=== PATIENT | male | born 1960 | race Caucasian/White ===

== ENCOUNTER 2018-03-24 06:52 | Emergency (ER) | payer OTHER, SELFPAY ==
[2018-03-24 06:54] VITALS: BP 166/78; PULSE 84; RESP 22; TEMP 36.6; O2SAT 97; BMI 42.3
--- NOTE | 2018-03-24 06:58 | NURSING ---
NO OLD EKGS
--- NOTE | 2018-03-24 07:11 | RAD_ITS ---
STUDY: X-RAY CHEST REASON FOR EXAM: Male, 57 years old. Lightheaded, dizzy, short of breath since yesterday. TECHNIQUE: Single portable frontal chest. COMPARISON: None. FINDINGS: The lungs are clear and expanded. There is no demonstrated pleural abnormality. Normal size heart. Normal mediastinum and renee. Normal visualized pulmonary arteries. Normal visualized aortic arch and descending thoracic aorta. There are diffuse degenerative changes of the visualized thoracic spine. Normal visualized ribs, clavicles, and shoulders. There is no demonstrated abnormality of the visualized soft tissue structures of the upper abdomen. RAD/Chest 1 View (Portable) IMPRESSION: No evident acute cardiopulmonary disease. Electronically Signed: Micheal Nguyen MD at 8:04 EDT , Service support ,
--- NOTE | 2018-03-24 07:11 | EKG12_ITS ---
Test Reason : NEURO Blood Pressure : / mmHG Vent. Rate : 082 BPM Atrial Rate : 082 BPM P-R Int : 184 ms QRS Dur : 094 ms QT Int : 384 ms P-R-T Axes : 034 002 034 degrees QTc Int : 448 ms Sinus rhythm with frequent Premature ventricular complexes Otherwise normal ECG Confirmed by TIFFANI CHAVEZ, DREW ([id number]), index editor TESSIE COOPER ([id number]) on 03/27/2018 12:53:52 PM Referred By: Confirmed By:DREW NIXON MD
--- NOTE | 2018-03-24 07:18 | ED.VISSUMM ---
- ER Visit Summary Date of Service: 03/24/18 Chief Complaint: Lightheadedness History of Present Illness: The patient is a 57 M presenting with lightheadedness which started yesterday. Patient states that he feels lightheaded like he is going to pass out. He has not passed out. He denies vertigo symptoms. Denies numbness or weakness. He states he has a pressure in his head. Denies pain. Denies chest pain or shortness of breath. Denies abdominal pain, nausea, vomiting. Denies fever or recent illness. He does have an abscessed tooth which he was put on amoxicillin for yesterday by his dentist. He states his symptoms started before the antibiotics were started. He has a history of episodic ataxia. He states this feels different from previous. No recent trauma. Physical Examination: Vitals are stable. Patient is afebrile. Alert no acute distress. HEENT exam is unremarkable. Right upper gum: no fluctuance or drainage. Neck is supple. Lungs are clear and equal bilaterally. Heart is regular rate and rhythm. Abdomen is soft nontender nondistended. Extremities are unremarkable. Skin is warm and dry. No focal neurologic deficit. NIH 0 Remainder of exam is unremarkable. Emergency Department Course and Treatment: EKG is sinus rate of 82 with no acute ischemic changes. He was given IV fluids. Orthostatics are negative. CBC, chemistries unremarkable other than glucose 177. Troponin is negative. D-dimer is negative. Delta troponin is negative. Chest x-ray shows no acute process. CT head shows no acute process. Patient has some improvement. He is able to ambulate with a steady gait. He is comfortable with discharge home. He will follow-up with his primary care physician. Advised return to the ED for any worsening complaints. Disposition: Discharged home Impression: Lightheadedness This note was generated with [employer] dictation software. It may contain incorrect words, spelling, and punctuation that were not noted in review of the chart prior to signing ED Disposition - Plan for ED Patient: Disposition: Home or Assisted Living Chief Complaint: Neuro S/Sx Instructions: [place] [facility] [place]errals: Willam Rosales [Primary Care Provider] -
--- NOTE | 2018-03-24 07:19 | CT_ITS ---
STUDY: CT BRAIN WITHOUT CONTRAST REASON FOR EXAM: Male, 57 years old. Dizzy and lightheaded since yesterday. RADIATION DOSAGE (If Supplied By Facility): CTDIvol = ( 44.99 ) mGy, DLP = ( 863.60 ) mGycm TECHNIQUE: Transaxial CT imaging of the brain was performed without administration of intravenous contrast material. Individualized dose optimization techniques were used for this CT. COMPARISON: None. FINDINGS: Normal soft tissue structures. Normal calvarium. Normal size ventricles and extra-axial spaces for the patient's age. Normal white matter tracts of the cerebral hemispheres. Normal basal ganglia and thalami. Normal brainstem. Normal cerebellum. There is no intracranial hemorrhage. There are no findings of an acute ischemic infarction. Soft tissue density seen involving both maxillary sinuses. There is no paranasal sinus air-fluid level. CT/Brain/Head without Contrast IMPRESSION: No evident acute intracranial pathology. Nonspecific paranasal sinus disease without air-fluid level. Electronically Signed: Micheal Nguyen MD at 8:04 EDT , Service support ,
[2018-03-24 07:28] LABS: Absolute Lymphocyte Count 1.61 X10^3/ul (0.83-4.51); Absolute Neutrophil Count 3.4 X10^3/uL (2.0-7.7); Basophil# 0.02 X10^3/uL; Basophil% 0.4 % (0-1); Eosinophil# 0.12 X10^3/uL; Eosinophils% 2.1 % (0-5); Hematocrit 46.1 % (40-54); Hemoglobin 15.5 g/dl (13.0-16.5); Lymphocyte # 1.61 X10^3/ul (4.0); Lymphocyte % 28.3 % (19-41); Mean Corp Hgb Conc 33.6 g/gl (32-36); Mean Corpuscular Hgb 30.3 pg (27.0-32.0); Mean Platelet Vol. 9.7 fl (6.2-12.0); Monocyte# 0.49 X10^3/uL; Monocyte% 8.6 % (0-10); Neutrophil # 3.44 X10^3/uL (2.7-7.7); Neutrophil % 60.4 % (47-70); POSITIVE COUNT NO; POSITIVE DIFFERENTIAL NO; POSITIVE MORPHOLOGY NO; Platelet Count 154 K/mm3 (150-450); RBC Distribution Width CV 13.5 % (11.6-14.6); RBC Distribution Width SD 44.3 fl (35.1-43.9); Red Blood Count 5.12 M/mm3 (4.6-6.2); White Blood Count 5.7 K/mm3 (4.4-11.0)
[2018-03-24] MEDS: 0.9% Normal Saline 1,000 ML 1000 ML IV (07:32)
[2018-03-24 07:35] VITALS: BP 140/81; BP 144/64; BP 151/91; PULSE 81; PULSE 86; PULSE 87
[2018-03-24 07:40] LABS: D-Dimer Quantitative (DVT/PE) < 0.27 FEU/ug/m (0.27-0.49)
[2018-03-24 07:45] LABS: Anion Gap 8 (5-15); BUN 19 mg/dL (7-18); Calcium,Total 8.5 mg/dL (8.5-10.1); Chloride 108 mmol/L (98-107); Creatinine, Serum 1.12 mg/dL (0.70-1.30); EST Glomerular Filtration Rate 72 mL/min (>60); Est Glom Filt Rate - Afr Amer 87 mL/min (>60); Estimated Creatinine Clearance 79.37 ml/min; Glucose 177 mg/dL (74-106); Potassium 3.9 mmol/L (3.5-5.1); Sodium Level 143 mmol/L (136-145)
[2018-03-24 09:13] VITALS: BP 147/86; PULSE 78; RESP 20; O2SAT 98
[2018-03-24 10:54] VITALS: BP 140/111; PULSE 73; RESP 18
--- NOTE | 2018-03-24 11:12 | ED.DEP ---
ED Disposition - Plan for ED Patient: Chief Complaint: Neuro S/Sx Instructions: ED Dizziness [facility] Referrals: Willam Rosales [Primary Care Provider] -
[2018-03-24 11:24] VITALS: BP 153/61; PULSE 74; RESP 15
== END 2018-03-24 11:26 | disposition home or self-care (01) ==
PROVIDERS: Emergency Provider Emergency Medicine; Family Provider Family Medicine; PCP Family Medicine
DX: R42 Dizziness and giddiness (principal); R51 Headache; E11.9 Type 2 diabetes mellitus without complications; I10 Essential (primary) hypertension; E78.00 Pure hypercholesterolemia, unspecified
CPT/HCPCS: 70450; 71045; 80048; 84484; 85025; 85379; 93005; 96360; 99285; J7030; A4216

== ENCOUNTER 2018-11-09 05:36 | Inpatient (IN) | payer OTHER, SELFPAY ==
[2018-10-30 14:26] VITALS: PULSE 94; RESP 18; TEMP 36.9; O2SAT 97; BMI 41.5
--- NOTE | 2018-10-30 14:45 | RAD_ITS ---
STUDY: X-RAY CHEST REASON FOR EXAM: Male, 57 years old. Preoperative evaluation. TECHNIQUE: PA and lateral views of the chest. COMPARISON: Comparison is made with prior study dated March 24, 2018. FINDINGS: The lungs are clear and expanded. There is no demonstrated pleural abnormality. Normal size heart. Normal mediastinum and renee. Normal visualized pulmonary arteries. Normal visualized aortic arch and descending thoracic aorta. There are diffuse degenerative changes of the visualized thoracic spine. Normal visualized ribs, clavicles, and shoulders. There is no demonstrated abnormality of the visualized soft tissue structures of the upper abdomen. RAD/Chest PA and Lateral IMPRESSION: Normal x-ray examination of the chest. Electronically Signed: Leo Agustin MD at 15:49 EST Tel [phone], Service support ,
--- NOTE | 2018-10-30 14:45 | SDCEKG_ITS ---
Test Reason : Blood Pressure : / mmHG Vent. Rate : 088 BPM Atrial Rate : 088 BPM P-R Int : 190 ms QRS Dur : 100 ms QT Int : 368 ms P-R-T Axes : 032 002 031 degrees QTc Int : 445 ms Normal sinus rhythm Low voltage QRS (limb leads) Confirmed by VONNIE CHAVEZ, KP ([id number]), editorial project manager TESSIE ESQUIVEL ([id number]) on 11/03/2018 2:13:51 PM Referred By: Toni Esquivel Confirmed By:KP SHANKAR MD
[2018-10-30 15:16] LABS: Hematocrit 45.1 % (40-54); Hemoglobin 15.3 g/dl (13.0-16.5); Mean Corp Hgb Conc 33.9 g/gl (32-36); Mean Corpuscular Hgb 30.8 pg (27.0-32.0); Mean Corpuscular Volume 90.9 fL (80-94); Mean Platelet Vol. 9.4 fl (6.2-12.0); Platelet Count 154 K/mm3 (150-450); RBC Distribution Width CV 12.8 % (11.6-14.6); RBC Distribution Width SD 42.4 fl (35.1-43.9); Red Blood Count 4.96 M/mm3 (4.6-6.2); White Blood Count 7.4 K/mm3 (4.4-11.0)
[2018-10-30 15:38] LABS: Scan Indicated on CBC? Y/N NO
[2018-10-30 15:52] LABS: Anion Gap 8 (5-15); BUN 22 mg/dL (7-18); Chloride 109 mmol/L (98-107); Creatinine, Serum 1.22 mg/dL (0.70-1.30); EST Glomerular Filtration Rate 65 mL/min (>60); Est Glom Filt Rate - Afr Amer 79 mL/min (>60); Estimated Creatinine Clearance 70.64 ml/min; Glucose 86 mg/dL (74-106); Sodium Level 144 mmol/L (136-145)
[2018-10-30 17:27] LABS: Hemoglobin A1c 6.8 % (4.2-6.3)
--- NOTE | 2018-11-06 11:49 | CASEMGMT ---
Call placed to patient to discuss discharge needs after upcoming surgery. Patient plans to return home with assistance from . Has outpatient physical therapy set up in [place], and friends from [employer] will assist with transportation. Patient is picking up walker, bedside commode, shower seat Friday from a friend. Bathroom is on 2nd level of home, patient plans to utilize [facility]SC on 1st level. Bedroom is on 2nd level of home, there are 6 steps to get to 2nd level. There are 3 steps into the home from the garage. Patient reports he does not have a grabber to use after surgery to pick things up/reach for items - let patient know that [employer], [employer], drug stores, and [facility] therapy dept all likely carry them. Informed patient that RN-CM will likely follow up after surgery. Farida Fink LPN Clinical Support
[2018-11-09] VITALS (14 sets, daily range): BP systolic 108–147; BP diastolic 61–84; PULSE 73–95; RESP 14–18; TEMP 36.3–36.9; O2SAT 95–99; BMI 41.5
[2018-11-09 06:46] LABS: Bedside Glucose 98 mg/dL (70-110)
[2018-11-09] MEDS: Acetaminophen 500 MG Tablet 1000 MG PO ×3 (06:48→21:02)
[2018-11-09] MEDS: oxyCODONE HCl Cr 10 MG Tablet PO (06:48)
[2018-11-09] MEDS: Celecoxib 200 MG Capsule 400 MG PO (06:48)
--- NOTE | 2018-11-09 07:30 | HIP_PTH ---
PATIENT: NATALIA ESQUIVEL LOC: MS3 U#:[id number] AGE/SX: 58/M [place] [facility] [place]09[place]: Dr. Toni Esquivel MD : [id number] BED: 1 DIS: 11/10/2018 SPEC #: [id number] RECD: 11/09/18 11:43 STATUS: [facility]O REQ #: [id number] DON: 11/09/18 07:[address]: Toni Esquivel DEPT: SURGICAL PATHOLOGY RECD BY: Rafael Mendes ENTERED: 11/09/18 12:58 SP TYPE: TOTAL HIP OTHR DR: MD Dr. Willam Case MD Tissues: Hip, NOS Procedures: Decalcification bone/plaque Surgery Specimen Level V HEADER OPERATION: Left total hip replacement PRE-OP DIAGNOSIS: Left hip primary osteoarthritis TISSUE SUBMITTED: Femoral head and debrided tissue MICROSCOPIC DIAGNOSIS Femoral head and debrided tissue, total hip replacement/resection: Femoral head with degenerative osteoarthritic changes. A piece of cartilage and bone, consistent with loose body. Fragments of fibroadipose tissue, fibroconnective tissue, skeletal muscle tissue and synovial tissue. SAULO:heather 11/12/18 MICROSCOPIC DESCRIPTION Slides are reviewed. GROSS DESCRIPTION Received is one container designated femoral head and debrided tissue. The specimen consists of a doss femoral head with portion of femoral neck. The femoral head measures 5.5 x 5.5 x 5.5 cm and the portion of femoral neck measures up to 1.4 cm in length. The articular surface displays prominent osteophyte formation, eburnation and bone erosion. Also present in the specimen container are multiple irregular fragments of bone reamings and pink-yellow soft tissue measuring in aggregate 11 x 10 x 3 cm. Also present in the container is a detached piece of bone consistent with loose body measuring 3 x 1.5 x 2 cm. Rental Clerk sections are submitted in three cassettes as follows: 1 - soft tissue, 2 - femoral head, 3 - loose body, 2 & 3 are submitted after decalcification. / SAULO:heather 11/09/18 TC:5 [facility]: [id number], [id number]
--- NOTE | 2018-11-09 07:31 | RAD_ITS ---
STUDY: X-RAY - LEFT HIP REASON FOR EXAM: Male, 58 years old. Left hip replacement. TECHNIQUE: 2 views of the hip. COMPARISON: None. FINDINGS: The patient is status post left hip replacement. There is good alignment. Postoperative soft tissue changes. RAD/Hip Min 2 Views (Portable) IMPRESSION: Status post left hip replacement. There is good alignment. Postoperative soft tissue changes. Electronically Signed: Leo Agustin MD at 13:21 EST Tel [phone], Service support ,
--- NOTE | 2018-11-09 09:15 | PCM.OP.BLANK ---
Operative Report Date of Procedure: 11/09/18 Preoperative diagnosis: Left hip primary osteoarthritis Postoperative diagnosis: Same Operation: [Left] total hip replacement surgery Surgeon: Dr. Toni Esquivel MD Television And Radio Repairer: Marva Balderas PA-C Second digital marketing assistant Naomi Verduzco Anesthesia: Spinal Anesthesiologist Dr. Santos Special medications: IV [Ancef] 3 g, IV Tranexamic acid Indications for surgery : Patient is a [ 58]-year-old [male] with a long-standing history of [left] severe hip pain that has failed adequate nonoperative treatment. Due to persistent pain and disability, they decided to proceed with hip replacement surgery. Appropriate informed consent was obtained and signed. Appropriate medical workup was performed preoperatively and patient was deemed safe for surgery by the anesthesia department as well. clinical services assistant, physician digital marketing assistant, was utilized throughout the entire procedure. They were vital in helping with patient positioning, holding of retractors, exposing the tissues adequately for safe completion of the procedure including cutting of the bone, helping patching machine operator appropriate alignment and sizing of the components, implantation of the components, as well as wound closure, bandage application, and safe patient transfer. Without certified ophthalmic surgical assistant, physician digital marketing assistant, surgical time would have been significantly increased, and surgical outcome would have been less optimal. Operative findings: Patient had severe arthritis of the involved hip joint. They underwent a small posterior approach to the hip. We utilized a size [5 press-fit Accolade 2 stem] 127 degree neck angle, a press fit acetabular component size [58] titanium cluster, Trident X3 10? hooded polyethylene liner with a 36 mm inner diameter, a Biolox ceramic femoral head size [36] with a +0 neck length. This reproduced their anatomy nicely. Clinically good leg lengths were noted. Good hip stability through range of motion with no undue pistoning. Standard wound closure in layers, followed by chanda, followed by Mepilex dressing Details of procedure: Patient was taken to the operating room and transferred to the operating table. Given appropriate anesthetic agent by that department. Patient was then rolled into a lateral decubitus position with the involved painful hip up in the air. Appropriate timeouts had been performed. Hip had been appropriately marked with my initials. Padded anterior and posterior position was utilized. Axillary roll placed. LLOYD hose and SCDs on the nonoperative limb utilized throughout the procedure. Tranexamic acid and IV antibiotics given preoperatively. Operative lower extremity was prepped padded and draped in the usual orthopedic sterile fashion for the procedure. I injected the pain relieving solution in the standard sterile technique of the soft tissues of the hip carefully. Incision was made curving over the tip of the greater trochanter posteriorly. Full thickness skin flaps are raised down on the fascia ifrah. Fascia ifrah was opened in length with our incision. Charnley self-retaining hip retractor was carefully placed by the surgeon. Leg was appropriately rotated and held by the digital marketing assistant. Retractor was used to lift the abductors anteriorly to visualize the piriformis tendon and external rotators. Area was infiltrated with pain relieving cocktail. Piriformis tendon and external rotators released off the greater trochanter with the Bovie. Tagging suture was placed in each of these separately. We then split the tissue superior to the piriformis tendon through capsule and onto the pelvis. Acetabular labrum was also divided. With traction and manipulation arthritic femoral head was dislocated from the acetabulum. Retractors were carefully placed around the femoral neck. Cutting guide was utilized to map out the proposed cut approximately 1 fingerbreadth above the lesser trochanter. This femoral neck cut was carried out with a saw. Arthritic femoral head removed and measured and inspected. Inferior acetabular retractor was placed by the surgeon, held by the digital marketing assistant. Bone hook utilized to pull the proximal femur anteriorly. Labrum removed from about the acetabulum a long knife. Tissue removed from the depth of the acetabulum with the Bovie. Arthritic acetabulum was noted. We began reaming with the appropriate sized reamer based on the measurement of the femoral head. Reaming was done with 45? of abduction, 20? of anteversion, reproducing there anatomy. Reaming was done incrementally up to the appropriate size creating a smooth cylindrical acetabulum and was done down to healthy bone. Trial acetabular trial component 1 millimeters smaller than the largest reamer was utilized with the outrigger device. Appropriate abduction and anteversion confirmed as well as size and position of cup. We irrigated with bulb syringe saline. Appropriate acetabular opponent was opened and hammered into position with the outrigger device, with 45? of abduction and 20 degrees of anteversion. We could see through the hole in the cup it was adequately down onto the bone in the pelvis. Good stability was noted. Trial liner with a 10? lopez was appropriately positioned. Acetabular retractors removed. A proximal femoral elevator utilized. Held by the digital marketing assistant. We used a sharp awl entering down inside the bone of the proximal femur. Utilized the kay cutting osteotome in the proximal lateral greater trochanteric region. The fragment removed. Broaching was then done from the smallest broach, upto the appropriate size. Good stability was confirmed. We then trialed the construct with a standard neck length and appropriate sized femoral head on 127? angle neck. We were happy with the construct. Good stability to flexion, rotation by the digital marketing assistant. At this point trials removed. I now placed the appropriate polyethylene acetabular liner into a clean dry previously placed shell. This was hammered into position. Suction device was used to confirm its stability. We now exposed the proximal femur with appropriate retractors in place, held by the digital marketing assistant, actual femoral stem was checked, opened, and then hammered into the proximal femur and seated down to a similar position as the trial had. We now again trialed appropriate neck length upon. It was then opened. Now impacted the appropriate sized femoral head, neck construct onto the clean dried trunion. Was noted to be stable. Hip was inspected, and joint was reduced for a final time. Good hip stability and leg lengths noted. This was then irrigated with saline and cleaned. Next the remainder of the pain relieving solution was injected carefully throughout the soft tissues of the hip joint. Closure was carried out with a combination of #1 Vicryl, running #2 strata fix in the fascia ifrah, followed by mid layer #1 Vicryl with #1 strata fix running. Next running 0 strata fix, followed by skin chanda, Xeroform, Mepilex dressing. We placed LLOYD hose and SCD on the operative leg. Patient awoken from the anesthetic and transferred back to room bed in recovery room in satisfactory condition. Patient will be admitted for pain management, PT, IV antibiotics, medication for DVT prevention. Hospitalist consulted for postoperative medical management. Hopeful discharge to home in 1-3 days This note was generated with [employer] dictation software. It may contain incorrect words, spelling, and punctuation that were not noted in checking the note before signing.
--- NOTE | 2018-11-09 09:19 | OP.PCM_ITS ---
Operative Report Date of Procedure: 11/09/18 Preoperative diagnosis: Left hip primary osteoarthritis Postoperative diagnosis: Same Operation: [Left] total hip replacement surgery Surgeon: Dr. Toni Esquivel MD Diploma Pharmacy Technician: Marva Balderas PA-C Second operations administrative assistant Naomi Verduzco Anesthesia: Spinal Anesthesiologist Dr. Santos Special medications: IV [Ancef] 3 g, IV Tranexamic acid Indications for surgery : Patient is a [ 58]-year-old [male] with a long- standing history of [left] severe hip pain that has failed adequate nonoperative treatment. Due to persistent pain and disability, they decided to proceed with hip replacement surgery. Appropriate informed consent was obtained and signed. Appropriate medical workup was performed preoperatively and patient was deemed safe for surgery by the anesthesia department as well. printer's assistant, physician operations administrative assistant, was utilized throughout the entire procedure. They were vital in helping with patient positioning, holding of retractors, exposing the tissues adequately for safe completion of the procedure including cutting of the bone, helping ladle filler appropriate alignment and sizing of the components, implantation of the components, as well as wound closure, bandage application, and safe patient transfer. Without surgical attendant, physician operations administrative assistant, surgical time would have been significantly increased, and surgical outcome would have been less optimal. Operative findings: Patient had severe arthritis of the involved hip joint. They underwent a small posterior approach to the hip. We utilized a size [5 press-fit Accolade 2 stem] 127 degree neck angle, a press fit acetabular component size [58] titanium cluster, Trident X3 10? hooded polyethylene liner w ith a 36 mm inner diameter, a Biolox ceramic femoral head size [36] with a +0 neck length. This reproduced their anatomy nicely. Clinically good leg lengths were noted. Good hip stability through range of motion with no undue pistoning. Standard wound closure in layers, followed by chanda, followed by Mepilex dressing Details of procedure: Patient was taken to the operating room and transferred to the operating table. Given appropriate anesthetic agent by that department. Patient was then rolled into a lateral decubitus position with the involved painful hip up in the air. Appropriate timeouts had been performed. Hip had been appropriately marked with my initials. Padded anterior and posterior position was utilized. Axillary roll placed. LLOYD hose and SCDs on the nonoperative limb utilized throughout the procedure. Tranexamic acid and IV antibiotics given preoperatively. Operative lower extremity was prepped padded and draped in the usual orthopedic sterile fashion for the procedure. I injected the pain relieving solution in the standard sterile technique of the soft tissues of the hip carefully. Incision was made curving over the tip of the greater trochanter posteriorly. Full thickness skin flaps are raised down on the fascia ifrah. Fascia ifrah was opened in length with our incision. Charnley self-retaining hip retractor was carefully placed by the surgeon. Leg was appropriately rotated and held by the operations administrative assistant. Retractor was used to lift the abductors anteriorly to visualize the piriformis tendon and external rotators. Area was infiltrated with pain relieving cocktail. Piriformis tendon and external rotators released off the greater trochanter with the Bovie. Tagging suture was placed in each of these separately. We then split the tissue superior to the piriformis tendon through capsule and onto the pelvis. Acetabular labrum was also divided. With traction and manipulation arthritic femoral head was dislocated from the acetabulum. Retractors were carefully placed around the femoral neck. Cutting guide was utilized to map out the proposed cut approximately 1 fingerbreadth above the lesser trochanter. This femoral neck cut was carried out with a saw. Arthritic femoral head removed and measured and inspected. Inferior acetabular retractor was placed by the surgeon, held by the operations administrative assistant. Bone hook utilized to pull the proximal femur anteriorly. Labrum removed from about the acetabulum a long knife. Tissue removed from the depth of the acetabulum with the Bovie. Arthritic acetabulum was noted. We began reaming with the appropriate sized reamer based on the measurement of the femoral head. Reaming was done with 45? of abduction, 20? of anteversion, reproducing there anatomy. Reaming was done incrementally up to t he appropriate size creating a smooth cylindrical acetabulum and was done down to healthy bone. Trial acetabular trial component 1 millimeters smaller than the largest reamer was utilized with the outrigger device. Appropriate abduction and anteversion confirmed as well as size and position of cup. We irrigated with bulb syringe saline. Appropriate acetabular opponent was opened and hammered into position with the outrigger device, with 45? of abduction and 20 degrees of anteversion. We could see through the hole in the cup it was adequately down onto the bone in the pelvis. Good stability was noted. Trial liner with a 10? lopez was appropriately positioned. Acetabular retractors removed. A proximal femoral elevator utilized. Held by the operations administrative assistant. We used a sharp awl entering down inside the bone of the proximal femur. Utilized the kay cutting osteotome in the proximal lateral greater trochanteric region. The fragment removed. Broaching was then done from the smallest broach, upto the appropriate size. Good stability was confirmed. We then trialed the construct with a standard neck length and appropriate sized femoral head on 127? angle neck. We were happy with the construct. Good stability to flexion, rotation by the operations administrative assistant. At this point trials removed. I now placed the appropriate polyethylene acetabular liner into a clean dry previously placed shell. This was hammered into position. Suction device was used to confirm its stability. We now exposed the proximal femur with appropriate retractors in place, held by the operations administrative assistant, actual femoral stem was checked, opened, and then hammered into the proximal femur and seated down to a similar position as the trial had. We now again trialed appropriate neck length upon. It was then opened. Now impacted the appropriate sized femoral head, neck construct onto the clean dried trunion. Was noted to be stable. Hip was inspected, and joint was reduced for a final time. Good hip stability and leg lengths noted. This was then irrigated with saline and cleaned. Next the remainder of the pain relieving solution was injected carefully throughout the soft tissues of the hip joint. Closure was carried out with a combination of #1 Vicryl, running #2 strata fix in the fascia ifrah, followed by mid layer #1 Vicryl with #1 strata fix running. Next running 0 strata fix, followed by skin chanda, Xeroform, Mepilex dressing. We placed LLOYD hose and SCD on the operative leg. Patient awoken from the anesthetic and transferred back to room bed in recovery room in satisfactory condition. Patient will be admitted for pain management, PT, IV antibiotics, medication for DVT prevention. Hospitalist consulted for postoperative medical management. Hopeful discharge to home in 1-3 days This note was generated with [employer] software. It may contain incorrect words, spelling, and punctuation that were not noted in checking the note before signing.
[2018-11-09 09:56] LABS: Bedside Glucose 93 mg/dL (70-110)
[2018-11-09] MEDS: Scopolamine 1mg/72hr Patch 1 PATCH TD (09:58)
[2018-11-09] MEDS: Lactated Ringers 1,000 ML 125 ML IV (11:36)
--- NOTE | 2018-11-09 13:00 | PN_ITS ---
Subjective: 58-year-old male with past medical history of hypertension, type II DM, lipidemia, morbid obesity who comes in elective left hip replacement for left hip pain. The hospitalist team is consulted to assist with postop medical management. Patient was seen in his room, denied any pain. Thinks his nerve block is now wearing off yet. Complains of inability to urinate. Bladder scan done is 520mls. Patient wants to try some time later. Reluctant to have straight cath done for urinary retention. He has been having severe left hip pain that has failed conservative management. PMHx: as listed above Allergies: None Medications: See admitting medlist PSHx: Status post tonsillectomy, appendectomy, hernia repair, forearm surgery, SHx: Denies any use of alcohol, drugs, smoking ROS: 12 point review of systems essentially negative. Objective: Vitals show temperature of 97.6, heart rate 81, blood pressure 147/71, respiratory rate 16, SPO2 is 96% on room air. Physical exam: GEN: Appears comfortable, obese, not pale, no jaundice CVS: Heart sound I and II present, no murmurs heard RESP:Clinically clear to auscultation ABD: BS present and normal, soft, nontender, no palpable organs EXT: No edema, dressing over the left hip intact, clean, dry. BELT WEAVER: CN II-XII intact, power is 5/5, normal tone Vitals/I&O's: Vital Signs Temp Pulse Resp BP Pulse Ox 97.8 F 80 18 128/67 H 99 11/09/18 11:17 11/09/18 11:29 11/09/18 11:17 11/09/18 11:17 11/09/18 11:17 Oxygen Delivery Method Room Air Weight: 131.542 kg Body Mass Index (BMI) 41.5 Finger Stick Blood Glucose 93 Intake and Output for Last 24 Hours 11/07/18 11/08/18 11/09/18 23:59 23:59 23:59 Intake Total 2800 / 2800 Balance 2800 / 2800 Laboratory Results 11/09/18 06:39: POC Glucose 98 11/09/18 09:52: POC Glucose 93 Current Medications Acetaminophen (Tylenol) 1,000 mg PO Q8 [facility] Aspirin (Aspirin) 325 mg PO BIDCM [facility] Atorvastatin Calcium (Lipitor) 40 mg PO QHS [facility] Cefazolin Sodium () 1 gm in 50 mls @ 150 mls/hr IV Q6H [facility] A Stop: 11/10/18 01:49 Lactated Ringer's () 1,000 mls @ 125 mls/hr IV .Q8H [facility] Last Admin: 11/09/18 11:36 Dose: 125 mls/hr Insulin Glargine (Lantus (Bkc)) 50 units SC QHS [facility] Ketorolac Tromethamine (Toradol) 15 mg IV Q6H PRN PRN PRN Reason: MILD-MOD PAIN (1-04/09) Lisinopril (Zestril) 40 mg PO DAILY [facility] Metformin HCl (Glucophage Xr) 500 mg PO DAILYCM [facility] Morphine Sulfate (Ms Contin) 15 mg PO BID [facility] Non-Formulary Medication (Insulin Aspart Protam & Aspart [Novolog Mix 70-30 Vial]) 15 - 20 unit SQ DAILY [facility] Ondansetron HCl (Zofran) 4 mg IV Q8H PRN PRN PRN Reason: NAUSEA Oxycodone HCl (Oxyir) 5 - 10 mg PO Q4H PRN PRN PRN Reason: MOD-SEVERE PAIN (-09/09) Senna/Docusate Sodium (Senokot-S, Tiffany-Colace) 2 tablet PO BID [facility] Sodium Chloride () 5 - 15 ml IV UD PRN PRN Reason: SALINE FLUSH Medical Necessity - Tobacco Use Smoking Status: Never smoker Assessment/Plan A/P 1. POD#0 post left hip replacement, pain is controlled 2. Hypertension, on Lisinopril 3. Hyperlipidemia, on statin 4. Type II DM, on metformin 5. Morbid obesity, BMI 41.6 Will add acucheks and ISS Continue with pain control Continue with surgical management per Orthopedic recommendations PT/OT evaluation and treatment. Code Visit Inpatient E&M: 07450 Subs Hosp L2
[2018-11-09] MEDS: Cefazolin 1 GM/50 ML BAG IV ×2 (13:13→19:41)
[2018-11-09] MEDS: Aspirin 325 MG Tablet PO (16:44)
[2018-11-09] MEDS: oxyCODONE 5 MG Tablet PO ×2 (16:46→20:58)
[2018-11-09 16:49] LABS: Bedside Glucose 136 mg/dL (70-110)
[2018-11-09] MEDS: 0.9% NaCl Peripheral Flush Adult/Peds IV (18:21)
[2018-11-09] MEDS: Ketorolac 15 MG/ML Vial IV (18:21)
[2018-11-09] MEDS: Senna/Docusate Sodium 1 Tablet 2 TABLET PO (21:01)
[2018-11-09] MEDS: Atorvastatin Calcium 40 MG Tablet PO (21:03)
[2018-11-09] MEDS: Insulin Lispro 100 UNIT/ML INSULN.PEN SQ (21:10)
[2018-11-09] MEDS: morphine SR 15 MG Tablet PO (22:09)
[2018-11-09 23:01] LABS: Bedside Glucose 255 mg/dL (70-110)
[2018-11-10] MEDS: 0.9% NaCl Peripheral Flush Adult/Peds IV (01:32)
[2018-11-10] MEDS: Cefazolin 1 GM/50 ML BAG IV (01:32)
[2018-11-10 02:00] VITALS: BP 122/76; PULSE 73; RESP 18; TEMP 36.5; O2SAT 97
[2018-11-10] MEDS: oxyCODONE 5 MG Tablet PO ×2 (02:26→13:39)
[2018-11-10] MEDS: Acetaminophen 500 MG Tablet 1000 MG PO ×2 (06:37→13:39)
[2018-11-10] MEDS: Insulin Lispro 100 UNIT/ML INSULN.PEN SQ (06:41)
[2018-11-10 06:56] LABS: Bedside Glucose 150 mg/dL (70-110)
[2018-11-10 06:57] LABS: Hemoglobin 13.1 g/dl (13.0-16.5); Mean Corp Hgb Conc 33.6 g/gl (32-36); Mean Corpuscular Hgb 30.7 pg (27.0-32.0); Mean Corpuscular Volume 91.3 fL (80-94); Mean Platelet Vol. 9.6 fl (6.2-12.0); Platelet Count 127 K/mm3 (150-450); RBC Distribution Width CV 12.6 % (11.6-14.6); RBC Distribution Width SD 41.7 fl (35.1-43.9); Red Blood Count 4.27 M/mm3 (4.6-6.2); White Blood Count 9.7 K/mm3 (4.4-11.0)
[2018-11-10 07:00] LABS: Scan Indicated on CBC? Y/N NO
[2018-11-10 07:26] LABS: Anion Gap 3 (5-15); BUN 20 mg/dL (7-18); BUN/Creat Ratio 19.6 RATIO (10-20); Calcium,Total 8.1 mg/dL (8.5-10.1); Chloride 106 mmol/L (98-107); Creatinine, Serum 1.02 mg/dL (0.70-1.30); EST Glomerular Filtration Rate 80 mL/min (>60); Est Glom Filt Rate - Afr Amer 97 mL/min (>60); Glucose 170 mg/dL (74-106); Sodium Level 138 mmol/L (136-145)
[2018-11-10 07:46] VITALS: BP 143/80; PULSE 90; PULSE 91; RESP 18; TEMP 36.9; O2SAT 98
[2018-11-10] MEDS: Insulin Human 75/25 Kwickpen 15 UNIT SC (08:10)
[2018-11-10] MEDS: Aspirin 325 MG Tablet PO (08:11)
[2018-11-10] MEDS: Lisinopril 40 MG Tablet PO (08:11)
[2018-11-10] MEDS: Senna/Docusate Sodium 1 Tablet 2 TABLET PO (08:11)
--- NOTE | 2018-11-10 09:08 | PN_ITS ---
Subjective: And was seen and examined. Able to void yesterday without any catheterization. Denied any fever or chills. His pain is controlled this morning. He says it was worse yesterday. Denies any chest pain. Has exercised with physical therapy today. Vitals/I&O's: Vital Signs Temp Pulse Resp BP Pulse Ox 98.4 F 91 18 143/80 H 98 11/10/18 07:46 11/10/18 07:46 11/10/18 07:46 11/10/18 07:46 11/10/18 07:46 Oxygen Delivery Method Room Air Weight: 131.542 kg Body Mass Index (BMI) 41.5 Finger Stick Blood Glucose 93 Intake and Output for Last 24 Hours 11/08/18 11/09/18 11/10/18 23:59 23:59 23:59 Intake Total 4586 / 4586 857 / 857 Output Total 290 / 290 750 / 750 Balance 4296 / 4296 107 / 107 General: Alert, Oriented x3, Cooperative, No apparent distress, - - Obese HEENT: Atraumatic, PERRLA, EOMI, Normocephalic Oral: Moist Mucosa Neck: Supple, No JVD, Negative Carotid Bruits Lungs: Clear to auscultation, Normal air movement Cardiovascular: Regular rate, Regular Rhythm, Normal S1, Normal S2, No murmurs Abdomen: Bowel Sounds Present, Soft, Non Tender, Non-Distended, No Hepato-splenomegaly Extremities: No edema Skin: No rashes, No breakdown Musculoskeletal: Tenderness - Over the left hip, dressing clean, intact Lymphatic: No Cervical, Supraclavicular, or Inguinal Adenopathy Neurological: Cranial nerves II-XII grossly intact, Neuro grossly intact Psych/Mental Status: Normal Affect, Appropriate Laboratory Results 11/09/18 09:52: POC Glucose 93 11/09/18 16:42: POC Glucose 136 H 11/09/18 21:05: POC Glucose 255 H 11/10/18 06:35: POC Glucose 150 H 11/10/18 06:38: WBC 9.7, RBC 4.27 L, Hgb 13.1, Hct 39.0 L, MCV 91.3, MCH 30.7, MCHC 33.6, RDW 12.6, RDW Differential 41.7, Plt Count 127 L, MPV 9.6 11/10/18 06:38: Sodium 138, Potassium 4.0, Chloride 106, Carbon Dioxide 29.0, Anion Gap 3 L, BUN 20 H, Creatinine 1.02, Estim Creat Clear Calc 83.50, Est GFR (MDRD) Af Amer 97, Est GFR (MDRD) Non-Af 80, BUN/Creatinine Ratio 19.6, Glucose 170 H, Calcium 8.1 L Current Medications Acetaminophen (Tylenol) 1,000 mg PO Q8 [facility] Last Admin: 11/10/18 06:37 Dose: 1,000 mg [facility]) [facility] Last Admin: 11/10/18 08:11 Dose: 325 mg Atorvastatin Calcium (Lipitor) 40 mg PO QHS [facility] Last Admin: 11/09/18 21:03 Dose: 40 mg Dextrose (D50w Syringe) 0 gm IV X1 PRN; Protocol PRN Reason: Hypoglycemia Glucagon () 1 mg IM .X1 PRN PRN Reason: Hypoglycemia Insulin Glargine ([facility]us (Bkc)) [facility] Last Admin: 11/09/18 21:06 Dose: 50 u Insulin Human Lispro (Humalog Kwikpen (Bkc)) [facility]Q [facility]; Protocol Last Admin: 11/10/18 06:41 Dose: 1 u Ketorolac Tromethamine (Toradol) 15 mg IV Q6H PRN PRN PRN Reason: MILD-MOD PAIN (1-510) Last Admin: 11/09/18 18:21 Dose: 15 mg Lisinopril (Zestril) 40 mg PO DAILY [facility] Last Admin: 11/10/18 08:11 Dose: 40 mg Metformin HCl (Glucophage Xr) [facility] Last Admin: 11/10/18 08:11 Dose: 500 mg Morphine Sulfate (Ms Contin) 15 mg PO BID [facility] Last Admin: 11/09/18 22:09 Dose: 15 mg Ondansetron HCl (Zofran) 4 mg IV Q8H PRN PRN PRN Reason: NAUSEA Oxycodone HCl (Oxyir) 5 - 10 mg PO Q4H PRN PRN PRN Reason: MOD-SEVERE PAIN (4-10/10) Last Admin: 11/10/18 02:26 Dose: 10 mg Senna/Docusate Sodium (Senokot-S, Tiffany-Colace) 2 tablet PO BID [facility] Last Admin: 11/10/18 08:11 Dose: 2 tablet Sodium Chloride () 5 - 15 ml IV UD PRN PRN Reason: SALINE FLUSH Last Admin: 11/10/18 01:32 Dose: 10 ml Medical Necessity - Tobacco Use Smoking Status: Never smoker Assessment/Plan 1. POD#1, status post left hip replacement, pain is controlled, working with PT and OT, further surgical management per orthopedic team. 2. Hypertension, fairly controlled, on Lisinopril 3. Hyperlipidemia, on statin 4. Type II DM, blood sugars are slightly uncontrolled, on metformin, continue Accu-Cheks with insulin sliding scale 5. Morbid obesity, BMI 41.6, diet exercise is recommended 6. DVT prophylaxis per orthopedic team Code Visit Inpatient E&M: 99347 Subs Hosp L2
[2018-11-10] MEDS: morphine SR 15 MG Tablet PO (09:27)
--- NOTE | 2018-11-10 11:01 | PCM.PN.ORT ---
Subjective: PATIENT IS RESTING IN CHAIR AT BEDSIDE DURING EXAM. HE HAD PAIN WITH PT TODAY. PAIN IS FAIRLY WELL CONTROLLED AT THIS POINT. DENIES CP, SOB, DIZZINESS, CALF PAIN. DOING WELL OVERALL. WOULD LIKE TO CONSIDER A DC TO HOME LATER TODAY. NO ADVERSE EVENTS OVERNIGHT. PATIENT HAS NOT YET HAD A BM. Objective: A&OX3, NAD, BREATHING EASILY WITHOUT RESPIRATORY DISTRESS DRESSING CLEAN DRY INTACT NEGATIVE VIOLETA B/L ABLE TO ACTIVELY PLANTAR-/DORSI- FLEX B/L FEET AGAINST RESISTANCE SENSATION INTACT TO LIGHT TOUCH PEDAL PULSES PRESENT AND EQUAL B/L NEUROVASCULARLY INTACT - Physical Exam Vital Signs Temp Pulse Resp BP Pulse Ox 98.4 F 91 18 143/80 H 98 11/10/18 07:46 11/10/18 07:46 11/10/18 07:46 11/10/18 07:46 11/10/18 07:46 Oxygen Delivery Method Room Air Weight: 131.542 kg Body Mass Index (BMI) 41.5 Finger Stick Blood Glucose 93 Intake and Output for Last 24 Hours 11/08/18 11/09/18 11/10/18 23:59 23:59 23:59 Intake Total 4586 / 4586 857 / 857 Output Total 290 / 290 750 / 750 Balance 4296 / 4296 107 / 107 Laboratory Tests Past 24 Hrs 11/10/18 11/10/18 06:38 06:38 WBC 9.7 RBC 4.27 L Hgb 13.1 Hct 39.0 L MCV 91.3 MCH 30.7 MCHC 33.6 RDW 12.6 RDW Differential 41.7 Plt Count 127 L MPV 9.6 Sodium 138 Potassium 4.0 Chloride 106 Carbon Dioxide 29.0 Anion Gap 3 L BUN 20 H Creatinine 1.02 Estim Creat Clear Calc 83.50 Est GFR (MDRD) Af Amer 97 Est GFR (MDRD) Non-Af 80 BUN/Creatinine Ratio 19.6 Glucose 170 H Calcium 8.1 L POC Glucose 11/10/18 11/09/18 11/09/18 06:35 21:05 16:42 POC Glucose 150 H 255 H 136 H Medical Necessity - Tobacco Use Smoking Status: Never smoker Assessment/Plan 1. S/P LT MARCIN; POD#1 2. CONTINUE MS CONTIN, OXYIR, AND TYLENOL FOR PAIN CONTROL 3. DVT PROPHY; B/L TEDS SCDS AND ASA THERAPY 4. BEGIN PT/OT; WBAT WITH WALKER. HIP DISLOCATION PRECAUTIONS 5. ENCOURAGED INCENTIVE SPIROMETRY 6. STRESSED THE IMPORTANCE OF TIGHT GLYCEMIC CONTROL IN THE POST OPERATIVE PERIOD 7. CONTINUE DC PLANNING WITH CASE MANAGEMENT 8. CONTINUE POST OPERATIVE MEDICAL MANAGEMENT PER HOSPITALIST 9. ORTHOPEDICALLY STABLE OK FOR DC TO HOME TODAY IF HAVING ADEQUATE PAIN CONTROL, MOVING WELL WITH PT, PASSING FLATUS, AND CLEARED MEDICALLY PER HOSPITALIST. F/U WITH ORTHO NEXT WEEK WITH XRAY AND STAPLE REMOVAL
--- NOTE | 2018-11-10 11:15 | CASEMGMT ---
RN MIGUEL Face to Face with patient for initial transition planning/care coordination assessment. RN CM introduced self and role at [facility]. Patient sitting in chair, alert and oriented, at bedside. Patient willing to participate in assessment and is able to answer all questions appropriately. Care providers, pharmacy, and demographics verified. Patient wishes to discharge home and is setup at [facility] in [place] for outpatient therpay. Patient states he has no further needs or concerns at this time. CM to follow for discharge planning needs that may arise. PCP: Willam Rosales Specialists: None Preferred Pharmacy: [facility] Insurance: [employer] Prescription Benefit: [employer] Living Will/HPOA: No LNOK: Living Arrangements: Patient lives with in 2 story home. Transportation: DME/HHC: Patient has shower chair, BSC, and walker at home. Disposition Plan: Patient to discharge home with outpatient therapy, family support, and follow-up plans in place. Anju SHAH, RN, CM
--- NOTE | 2018-11-10 11:18 | DCINST_ITS ---
Discharge Diet: 1800 Calorie Control Diet Discharge Activity: May Not Drive - while taking narcotic pain medications., May not drive while taking narcotic pain medications., Use Walker May shower in (days): 1 - only if incision is dry and without drainage. Do NOT soak/submerge in tub/pool/christian/stream/hot tub. OK TO SHOWER OVER MEPILEX DRESSING Weight Bearing Status: Weight bearing as tolerated Elevate: Operative Extremity Additional Activity Instructions:: Wear elastic stockings for 2 weeks. DO NOT use alcohol with narcotic pain medication. DO NOT make important decisions while taking narcotic medication. If you have problems with taking your medication (rash, itching, nausea, etc.) call the office at once. HIP DISLOCATION PRECAUTIONS. SEE POST OPERATIVE ORTHOPEDIC INSTRUCTION SHEET Call your doctor if your incision/area has: Continuous Slow Oozing, Sudden Increased Bleeding, Increased Pain/ Swelling, Increased Redness, Foul Smelling Discharge Call your doctor if you observe: Fever of 101 or Higher, Coldness, Increased Pain, Numbness or Tingling, Inability to urinate, Inability to have a bowel movement, Shortness of breath, Chest pain, Increased palpitations (irregular heartbeat), Calf discomfort, Uncontrolled pain Remove Dressing in (days):: 5 Cleanse incision/area with: Soap & Water Additional Dressing/Incision Instructions:: SEE POST OPERATIVE ORTHOPEDIC INSTRUCTION SHEET Allergies/Adverse Reactions: Allergies hydrocodone [From Vicodin] Allergy (Verified 03/24/18 06:53) Other UNKNOWN REACTION Medications to take at Discharge Insulin Aspart Protam & Aspart [Novolog Mix 70-30 Vial] 15 - 20 unit SQ DAILY 03/24/18 Acetaminophen [Tylenol] 500 - 1,000 mg PO Q6H PRN PRN 10/30/18 Atorvastatin Calcium [Lipitor] 40 mg PO QHS 10/30/18 Benazepril HCl [Lotensin] 40 mg PO DAILY 10/30/18 Insulin Degludec [Tresiba Flextouch U-100] 50 unit SQ QHS 10/30/18 Metformin HCl [Metformin HCl ER] 500 mg PO DAILY 10/30/18 Aspirin 325 mg PO BIDCM #28 tablet 11/10/18 Oxycodone [Oxyir] 5 - 10 mg PO Q4H PRN PRN 7 Days #56 tablet 11/10/18 Senna/Docusate Sodium [Senokot-S] 2 tablet PO BID #30 tablet 11/10/18 morphine SR tablet [Ms Contin] 15 mg PO BID 7 Days #14 tablet 11/10/18 The following prescriptions were given: Oxycodone [Oxyir] 5 - 10 mg PO Q4H PRN PRN 7 Days #56 tablet PRN Reason: Mod-Severe Pain (4-09/09) Aspirin 325 mg PO BIDCM #28 tablet morphine SR tablet [Ms Contin] 15 mg PO BID 7 Days #14 tablet Senna/Docusate Sodium [Senokot-S] 2 tablet PO BID #30 tablet Primary Care Physician: Willam Rosales [Primary Care Provider] - Test Results: Test results from this visit will be discussed in further detail at your follow- up appointment, if applicable.
[2018-11-10 11:31] LABS: Bedside Glucose 95 mg/dL (70-110)
[2018-11-10 13:46] VITALS: BP 128/56; PULSE 99; RESP 18; TEMP 37; O2SAT 96
== END 2018-11-10 14:25 | disposition home or self-care (01) | DRG 470 ==
PROVIDERS: Admitting Provider Orthopaedic Surgery; Family Provider Family Medicine; PCP Family Medicine; Referring Provider Orthopaedic Surgery; Visit Provider Orthopaedic Surgery
PROC: 0SRB0JZ Replacement of Left Hip Joint with Synthetic Substitute, Open Approach (ICD-10-PCS; CPT 27130; principal; 2018-11-09 07:05)
DX: M16.12 Unilateral primary osteoarthritis, left hip (principal); Z68.41 Body mass index [BMI] 40.0-44.9, adult; I10 Essential (primary) hypertension; E78.5 Hyperlipidemia, unspecified; E66.01 Morbid (severe) obesity due to excess calories; E11.65 Type 2 diabetes mellitus with hyperglycemia; Z79.899 Other long term (current) drug therapy; Z79.84 Long term (current) use of oral hypoglycemic drugs
CPT/HCPCS: 36415; 71046; 73502; 80048; 82962; 83036; 85027; 87081; 88305; 88307; 88311; 93005; 97110; 97161; 97165; 97530; C1776; J7120; A4216

== ENCOUNTER 2023-10-20 06:28 | Day surgery (SDC) | payer OTHER, SELFPAY ==
[2023-10-20 06:51] VITALS: BP 121/71; PULSE 75; RESP 17; TEMP 36.2; O2SAT 100; BMI 42.1
[2023-10-20] MEDS: Lactated Ringers 1,000 ML 15 ML IV (07:00)
[2023-10-20 07:15] LABS: Bedside Glucose 110 mg/dL (74-106)
--- NOTE | 2023-10-20 07:30 | COLBX_PTH ---
PATIENT: NATALIA ESQUIVEL LOC: EN U#:[id number] AGE/SX: 62/M ROOM: RE10/20/[address]: Dr. Amarjit Adan MD : 1960 BED: DIS: 10/20/2023 SPEC #: [id number] RECD: 10/20/23 11:15 STATUS: MUARO EMELY #: [id number] DON: 10/20/23 07:[address]: Amarjit Adan DEPT: SURGICAL PATHOLOGY RECD BY: Yaritza Michael ENTERED: 10/20/23 11:16 SP TYPE: COLON BX OTHR DR: Dr. Willam Rosales MD Tissues: Sigmoid colon biopsy Procedures: Surgery Specimen Level IV HEADER OPERATION: Colonoscopy - open access PRE-OP DIAGNOSIS: Screening TISSUE SUBMITTED: Distal sigmoid polyp biopsy MICROSCOPIC DIAGNOSIS Distal sigmoid colon polyp, biopsy: Colonic mucosa with focal hyperplastic change. AM:heather 10/21/2023 MICROSCOPIC DESCRIPTION Slides are reviewed. GROSS DESCRIPTION Received in fixative is one container labeled with the patient's name and designated distal sigmoid polyp. The specimen consists of one irregular fragment of light doss soft tissue that measures 0.3 x 0.3 x 0.1 cm. The specimen is totally submitted in one cassette. / AM:heather 10/20/2023 TC:5 CPT: 09147
--- NOTE | 2023-10-20 07:34 | HP.PCM_ITS ---
[facility] - General General Date of Service: 10/20/23 HPI Narrative NATALIA ESQUIVEL, is a 62 M who presents for screening colonoscopy. He confirms her preappointment questionnaire that he has not experienced any change in her bowel habits-and particularly denies any notice of blood or constipation. He also confirms a family history of colon cancer in his brother and maternal grandmother both in their fifth decade of life. Personally he has a history of colonic polyps with 2 tubular adenomas found at his last colonoscopy in 2019. He does report that he had reported for a surveillance colonoscopy in March of this year but had an inadequate prep and was rescheduled to today. He confirms that his prep was completed successfully for today and that his output is now clear. [facility] Medical History (Updated 10/16/23 @ 16:22 by Gayatri Pendleton) Arthritis Cardiology follow-up encounter Dietary restriction Episodic ataxia Family history of colon cancer History of renal disease History of stress test HTN (hypertension) Hx of adenomatous colonic polyps Hx of fracture of leg Hyperlipidemia Insomnia Insulin dependent diabetes mellitus Non-smoker RLS (restless legs syndrome) Wears dentures Wears glasses Home Medications insulin aspar prt-insulin aspart 100 unit/mL (70-30) subcutaneous soln (Novolog Mix 70-30 U-100 Insuln) 15 - 20 unit subcut BID DIABETES 03/24/18 [History Last Taken Unknown] atorvastatin 40 mg tablet 40 mg PO QHS CHOLESTEROL 10/30/18 [History Last Taken Unknown] benazepril 40 mg tablet (Lotensin) 40 mg PO DAILY BP 10/30/18 [History Last Taken 11/09/18 04:45] insulin degludec 100 unit/mL (3 mL) subcutaneous pen (Tresiba FlexTouch U-100 insulin) 50 unit SQ QHS DIABETES 10/30/18 [History Last Taken Unknown] metformin 500 mg 24 hr tablet,extended release 500 mg PO DAILY DIABETES 10/30/18 [History Last Taken 11/09/18 04:45] celecoxib 200 mg capsule 200 mg PO BID 07/10/23 [History Last Taken Unknown] hydrochlorothiazide 12.5 mg tablet 12.5 mg PO DAILY 07/10/23 [History Last Taken Unknown] ropinirole 2 mg tablet 2 mg PO QHS 07/10/23 [History Last Taken Unknown] temazepam 15 mg capsule 15 mg PO QHS 07/10/23 [History Last Taken Unknown] trazodone 100 mg tablet 100 mg PO QHS 07/10/23 [History Last Taken Unknown] Allergy/AdvReac Type Severity Reaction Status Date / Time acetaminophen [From Percocet] AdvReac Panic Verified 10/20/23 06:41 attack hydrocodone [From Vicodin] AdvReac Panic Verified 10/20/23 06:41 attack oxycodone [From Percocet] AdvReac Panic Verified 10/20/23 06:41 attack Family History (Updated 07/10/23 @ 08:54 by Natasha Shaw) Grandmother Colon cancer Brother Colon cancer Surgical History (Updated 10/16/23 @ 16:22 by Gayatri Pendleton) History of excision of lesion History of removal of retained hardware Hx of appendectomy Hx of colonoscopy Hx of total hip arthroplasty Hx of total knee arthroplasty Hx of umbilical hernia repair Social History (Updated 07/10/23 @ 08:58 by Natasha Shaw) household members: spouse current occupational status: employed Smoking Status: Never smoker alcohol intake: never Past Medical/Surgical History Planned Operation Planned Operative Procedure/s: CSCOPE OA S.O.S: No Previous Hospitalizations/Surgeries HX Hospitalizations: No HX of Surgeries: APPENDECTOMY KIDNEY STONES HERNIA REPAIR R LEG PINS/SCREWS INSERTED THEN REMOVED COLONOSCOPY Any Problems With Anesthesia: No You/Your Family Experience Fever (Hyperthermia) With Anes: No Cholinesterase deficiency: No Cardiovascular Hx Chest Pain within Last 2 months: No Hx of Irregular Heartbeat and/or Afib: No Hx Heart Attack: No Hx Congestive Heart Failure: No Hx Rheumatic Fever: No Hx Hypertension: Yes (CONTROLLED WITH MED) Hx Internal Defibrillator: No Hx Pacemaker: No Hx Cardiac Catheterization: No Hx Cardiac Surgery/Stents/Etc.: No Hx Stress Test: Yes (2009 [facility]) Hx Pain in Legs when Walking/Leg Cramps: No Respiratory Chronic Cough: No HX of Shortness of Breath: Yes Hoarseness: No Hx Chronic Obstructive Pulmonary Disease (COPD): No Hx Asthma: No Hx Emphysema: No Hx Sleep Apnea: No Hx Respiratory Tract Infection/Cold (presently): No Do You Snore Loudly (louder than talking or can be heard): No Do You Often Feel Tired/ Fatigued/ Sleepy Dring Daytime?: No Has Anyone Observed You Stop Breathing During Sleep?: No Result (for STOP score): Negative Hx Smoking: No Smoking Status: Never smoker Gastrointestinal Hx Gastrointestinal Disorders: No Hx Gastrointestinal Bleed: No Hx Ulcer: No Hx Hiatal Hernia: No Difficulty Chewing/Swallowing: No Special diet followed at home: Yes (LOW CARB) Hx Unplanned Weight Loss of 20#: No HX Unplanned Weight Gain of 20#: No Neurological Hx Seizures: No HX Syncope/Blackout Spells/Unconsciousness: No Hx Transient Ischemic Attacks (TIA): No Hx Multiple Sclerosis: No Hx Parkinson's Disease: No Hx Head/Neck Injury: No Hx Headaches: No Hx Back Injury/Pain: Yes (SEE'S CHIROPRACTOR OCCAS.) Recent Onset of Speech Difficulty: No Restless Legs: Yes Does patient have nerve stimulator: No Blood Disorder Hx Leukemia: No Bleeding Tendencies: No Hx Deep Vein Thrombosis: No Hx High Cholesterol: Yes (ON MED) Blood Transmitted Disease: No Hx Hepatitis: No Hx Cirrhosis: No Hx Anemia: No Hx Blood Disorders: No Reproduction : No Genitourinary Hx Renal Disease: Yes (KIDNEY STONES) Musculoskeletal Hx Arthritis: Yes Hx Rheumatoid Arthritis: No Hx Gout: No Recent Onset of an Orthopedic Problem: Yes Endocrine Hx Diabetes: Yes Insulin: Yes Thyroid Disease: No Hx Steroid Therapy: No Psycho/Social Hx Substance Use: No Hx Alcohol Use: No Hx Anxiety: No Hx Depression: No Mental Illness: No Hx Dementia: No Miscellaneous Hx Cancer: No Recent Exposure to Contagious Disease: No Hx of C-Diff: No Any Loose Teeth: Yes (UPPER DENTURES) Allergies acetaminophen [From Percocet] Adverse Reaction (Verified 10/20/23 06:41) Panic attack hydrocodone [From Vicodin] Adverse Reaction (Verified 10/20/23 06:41) Panic attack oxycodone [From Percocet] Adverse Reaction (Verified 10/20/23 06:41) Panic attack Discharge Is Pt Admitted From a [facility], or a Longterm: No After D/C, Where Do you Plan to Go: Return Home Vital Signs Vital Signs Vital Signs: 10/20/23 06:51 10/20/23 06:51 Temperature 97.2 F L Temperature Source Temporal Pulse Rate 75 Respiratory Rate 17 Respiratory Pattern Normal Blood Pressure 121/71 H Blood Pressure Mean 87 Blood Pressure Source Monitor Blood Pressure Position Semi-Fowlers Blood Pressure Location Left Arm Pulse Ox 100 Oxygen Delivery Method Room Air Weight Weight: 302 lb 0.533 oz Body Mass Index (BMI) 42.1 Physical Exam Const alert, oriented x3 and no apparent distress General Appearance: cooperative Resp normal respiratory effort GI GI Narrative: Well-healed mini laparotomy incision around the patient's umbilicus. Obese, nondistended, soft, nontender to palpation x4 quadrants Assessment & Plan Assessment/Plan (1) Encounter for screening for malignant neoplasm of colon: PLAN: Patient is a 62-year-old male who presents for open access surveillance colonoscopy. He has a personal history of polyps (tubular adenomas) and his last scope was 2019. He is rescheduled from a surveillance colonoscopy originally set for March of this year due to inadequate prep. However, he confirms that he completed additional prep and that his output is now clear. There is also notable family history here for both a brother and a maternal grandmother that were diagnosed with colon cancer in their 50s. A slight delay has been instituted by anesthesia on account of patient drinking some orange juice prior to today's appointment, but otherwise we will plan to proceed to the endoscopy suite for surveillance colonoscopy as scheduled. Surgery Risks - Colonoscopy Risks Include but are not Limited To: Risks include but are not limited to: Bleeding, perforation requiring further surgery, inability to complete colonoscopy requiring barium enema.
[2023-10-20 10:23] VITALS: BP 121/71; BP 95/85; PULSE 77; RESP 18; TEMP 36.2; O2SAT 96
--- NOTE | 2023-10-20 10:24 | OP.COLON_ITS ---
Patient Name: Feliciano Bishop Procedure Date: 10/20/2023 9:12 AM Date of : 1960 Age: 62 Procedure: Colonoscopy Indications: High risk colon cancer surveillance: Personal history of colonic polyps, Family history of colon cancer in a first-degree relative before age 60 years Providers: Amarjit Adan MD Medicines: See the Anesthesia note for documentation of the administered medications Patient Profile: Last Colonoscopy: 3 years ago. Complications: No immediate complications. Estimated blood loss: Minimal. Procedure: Pre-Anesthesia Assessment: - The heart rate, respiratory rate, oxygen saturations, blood pressure, adequacy of pulmonary ventilation, and response to care were monitored throughout the procedure. After I obtained informed consent, the scope was passed under direct vision. Throughout the procedure, the patient's blood pressure, pulse, and oxygen saturations were monitored continuously. The was introduced through the anus and advanced to the cecum, identified by the appendiceal orifice, ileocecal valve and palpation. The colonoscopy was technically difficult and complex due to a redundant colon and significant looping. Successful completion of the procedure was aided by changing the patient to a supine position, straightening and shortening the scope to obtain bowel loop reduction and applying abdominal pressure. The patient tolerated the procedure well. The quality of the bowel preparation was adequate to identify polyps. Scope In: 9:25:19 AM Scope Out: 10:15:27 AM Total Procedure Duration Time 0 hours 50 minutes 8 seconds Findings: The perianal and digital rectal examinations were normal. The right colon was moderately tortuous. Advancing the scope required changing the patient to a supine position and straightening and shortening the scope to obtain bowel loop reduction. A 3 mm, non-bleeding polyp was found in the distal sigmoid colon. The polyp was sessile. Biopsies were taken with a cold forceps for histology. Estimated blood loss was minimal. Localized pseudopolyps were found in the rectum. No biopsies or other specimens were collected for this exam. The exam was otherwise without abnormality on direct and retroflexion views. Impression: - Tortuous colon. - One 3 mm, non-bleeding polyp in the distal sigmoid colon. Biopsied. - Pseudopolyps in the rectum. No specimens collected. - The examination was otherwise normal on direct and retroflexion views. Recommendation: - Discharge patient to a skilled nursing (via wheelchair). - Resume previous diet today. - Continue present medications. - Await pathology results. - Repeat colonoscopy date to be determined after pending pathology results are reviewed for surveillance based on pathology results. - Telephone my office for pathology results in 1 week. Procedure Code(s): --- Professional --- 94237, Colonoscopy, flexible; with biopsy, single or multiple Diagnosis Code(s): --- Professional --- Z86.010, Personal history of colonic polyps D12.5, Benign neoplasm of sigmoid colon K51.40, Inflammatory polyps of colon without complications Z80.0, Family history of malignant neoplasm of digestive organs Q43.8, Other specified congenital malformations of intestine CPT copyright 2021 [employer]. All rights reserved. The codes documented in this report are preliminary and upon office assistance review may be revised to meet current compliance requirements. Amarjit Adan MD 10/20/2023 10:23:21 AM This report has been signed electronically. Number of Addenda: 0 Note Initiated On: 10/20/2023 9:12 AM
--- NOTE | 2023-10-20 10:24 | OP.CCLET_ITS ---
10/20/2023 Willam Rosales Re : Colonoscopy procedure for Feliciano Rosales This procedure was performed on Friday, October 20, 2023. My impressions and recommendations are as follows: Impressions : - Tortuous colon. - One 3 mm, non-bleeding polyp in the distal sigmoid colon. Biopsied. - Pseudopolyps in the rectum. No specimens collected. - The examination was otherwise normal on direct and retroflexion views. Recommendations : - Discharge patient to a halfway (via wheelchair). - Resume previous diet today. - Continue present medications. - Await pathology results. - Repeat colonoscopy date to be determined after pending pathology results are reviewed for surveillance based on pathology results. - Telephone my office for pathology results in 1 week. My findings are described in the full procedure note, which is enclosed. If I can be of further assistance, please feel free to contact me at Doctor phone number(s): , Work: . Sincerely, Amarjit Adan MD 10/20/2023 10:23:21 AM This report has been signed electronically.
[2023-10-20 10:29] VITALS: BP 121/71; BP 86/71; PULSE 73; RESP 18; O2SAT 98
[2023-10-20 10:37] VITALS: BP 108/63; BP 121/71; PULSE 68; RESP 14; O2SAT 100
[2023-10-20 10:52] VITALS: BP 113/69; BP 121/71; PULSE 76; RESP 20; TEMP 36.4; O2SAT 95
[2023-10-20 11:07] VITALS: BP 121/71
== END 2023-10-20 11:22 | disposition home or self-care (01) ==
LOC: EN 06:31 → AC 06:32
PROVIDERS: PCP Family Medicine; Referring Provider Family Medicine; Visit Provider Surgery
PROC: 0DJD8ZZ Inspection of Lower Intestinal Tract, Via Natural or Artificial Opening Endoscopic (ICD-10-PCS; CPT 45378; principal; 2023-10-20 07:25)
DX: Z12.11 Encounter for screening for malignant neoplasm of colon (principal); E11.9 Type 2 diabetes mellitus without complications; Z79.4 Long term (current) use of insulin; E78.5 Hyperlipidemia, unspecified; Z86.010 Personal history of colon polyps; Z80.0 Family history of malignant neoplasm of digestive organs; I10 Essential (primary) hypertension; K63.5 Polyp of colon; Z79.899 Other long term (current) drug therapy; Q43.8 Other specified congenital malformations of intestine; Z79.84 Long term (current) use of oral hypoglycemic drugs
CPT/HCPCS: 45380; 82962; 88305; J7120; J2405

== ENCOUNTER 2025-01-03 15:42 | Observation (INO) | payer OTHER, SELFPAY ==
[2025-01-03] VITALS (21 sets, daily range): BP systolic 114–159; BP diastolic 50–130; PULSE 75–96; RESP 11–24; TEMP 36.3–36.7; O2SAT 93–100; BMI 40.8; BMI 41.6
--- NOTE | 2025-01-03 15:43 | CT_ITS ---
EXAM: STROKE BRAIN/HEAD WITHOUT CONT CLINICAL HISTORY: Stroke. COMPARISON: None. TECHNIQUE: Transaxial computerized tomographic images were obtained from base of skull to vertex, per standard departmental protocol, using automatic exposure control (radiation dose reduction software) to obtain a diagnostic image quality scan with patient dose as low as reasonably achievable. Coronal and sagittal images were reconstructed. Soft tissue and bone windows are reviewed. FINDINGS: No intracranial hemorrhage, mass effect, or midline shift. Thomas-white matter differentiation is maintained without CT findings of acute infarct. No cerebral edema or sulcal effacement. The ventricles, sulci and cisterns are proportional to the cerebral volume. The orbits appear within normal limits. Paranasal sinuses and mastoids are clear. CT/STROKE Brain/Head without Cont IMPRESSION: No acute abnormal intracranial finding. Reading Location: [id number]
--- NOTE | 2025-01-03 15:43 | EKG12_ITS ---
Test Reason : STROKE Blood Pressure : */* mmHG Vent. Rate : 82 BPM Atrial Rate : 82 BPM P-R Int : 250 ms QRS Dur : 112 ms QT Int : 402 ms P-R-T Axes : * 148 162 degrees QTcB Int : 469 ms Sinus rhythm with 1st degree A-V block Right axis deviation Abnormal ECG Confirmed by TIFFANI CHAVEZ, DREW ([id number]), metropolitan editor PARUL MANN ([id number]) on 01/04/2025 8:52:45 AM Referred By: Keyonna Lindsey Confirmed By: DREW NIXON MD
--- NOTE | 2025-01-03 15:43 | CT_ITS ---
PROCEDURE: STROKE CTA HEAD AND NECK W/CON REASON FOR EXAM: Stroke. TECHNIQUE: CTA imaging of the head and neck from the aortic arch to the skull vertex with intravenous contrast. 3D reconstructions. COMPARISON: None. FINDINGS: Aortic Arch: Normal size and branching pattern. No significant atherosclerotic plaque. Brachiocephalic and Subclavians: Unremarkable RIGHT Carotid: Right CCA: Unremarkable. Right ICA: Unremarkable. Right ECA: Unremarkable. LEFT Carotid: Left CCA: Unremarkable. Left ICA: Unremarkable. Left ECA: Unremarkable. Vertebrals: Codominant. Arise from the subclavians. Both vertebrals form the basilar. RIGHT Vertebral: Unremarkable. LEFT Vertebral: Non-opacification of the proximal vertebral artery No intracranial aneurysms or large vascular malformations are identified. Anterior cerebral arteries: Unremarkable. Middle cerebral arteries: Unremarkable. Basilar artery: Unremarkable. Posterior cerebral arteries: Unremarkable. Other major branches of the posterior circulation: Unremarkable. Major venous structures: Unremarkable. Other findings: No lymphadenopathy. Lung apices are clear. Bones are unremarkable. CT/STROKE CTA Head AND Neck W/Con IMPRESSION: Non-opacification of the proximal left vertebral artery of unclear chronicity. No other acute arterial abnormalities of the head or neck. One or more dose reduction techniques were used (e.g., Automated exposure contr ol, adjustment of the mA and/or kV according to patient size, use of iterative reconstruction technique). Reading Location: [id number]
--- NOTE | 2025-01-03 15:48 | ED.VIS.STROK ---
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 He states over a year ago had brief symptoms lasted 30 seconds. He denies headache denies speech and denies any hemiparesis. He is a diabetic. No stroke history. He was unable to walk in here. Prior similar symptoms: Yes PFSH PFSH Medical History Wears glasses Wears dentures Insulin dependent diabetes mellitus History of renal disease Arthritis Episodic ataxia Dietary restriction Non-smoker Cardiology follow-up encounter History of stress test Hx of fracture of leg Family history of colon cancer RLS (restless legs syndrome) Insomnia Hyperlipidemia Hx of adenomatous colonic polyps HTN (hypertension) Home Medications ?Medication ?Instructions ?Recorded ?Last Taken ?Type insulin aspar prt-insulin aspart 15 - 20 unit subcut BID DIABETES 03/24/18 01/03/25 History 100 unit/mL (70-30) subcutaneous soln (Novolog Mix 70-30 U-100 Insuln) atorvastatin 40 mg tablet 40 mg PO QHS CHOLESTEROL 10/30/18 01/02/25 History benazepril 40 mg tablet (Lotensin) 40 mg PO DAILY BP 10/30/18 01/03/25 History insulin degludec 100 unit/mL (3 60 unit SQ QHS DIABETES 10/30/18 01/02/25 History mL) subcutaneous pen (Tresiba FlexTouch U-100 insulin) celecoxib 200 mg capsule 200 mg PO BID 07/10/23 01/03/25 History hydrochlorothiazide 12.5 mg tablet 12.5 mg PO DAILY 07/10/23 01/03/25 History ropinirole 2 mg tablet 2 mg PO QHS 07/10/23 01/02/25 History temazepam 15 mg capsule 15 mg PO QHS 07/10/23 01/02/25 History trazodone 100 mg tablet 100 mg PO QHS 07/10/23 01/02/25 History metformin 500 mg tablet 500 mg PO DAILY 01/03/25 01/03/25 History Allergy/AdvReac Type Severity Reaction Status Date / Time acetaminophen (From Percocet) AdvReac Panic Verified 10/20/23 06:41 attack hydrocodone (From Vicodin) AdvReac Panic Verified 10/20/23 06:41 attack oxycodone (From Percocet) AdvReac Panic Verified 10/20/23 06:41 attack Family History (Updated 01/03/25 @ 20:[address] Keyonna Lindsey MD) Grandmother Colon cancer Brother Colon cancer Mother Diabetes CVA (cerebral vascular accident) Hypertension Father Diabetes Pancreatic cancer Surgical History History of excision of lesion History of removal of retained hardware Hx of umbilical hernia repair Hx of appendectomy Hx of total knee arthroplasty Hx of total hip arthroplasty Hx of colonoscopy Social History (Updated 01/03/25 @ 20:[address] Keyonna Lindsey MD) household members: spouse current occupational status: employed Smoking Status: Never smoker alcohol intake: never substance use type: does not use ROS ROS ED Constitutional Constitutional ED: Denies chills, fever(s) or sweats ENT ENT ED: Denies sore throat Cardiovascular Cardiovascular: Denies chest pain, leg edema, palpitations or racing heartbeat Respiratory/Chest Respiratory/Chest: Denies cough, dyspnea or dyspnea on exertion Gastrointestinal Gastrointestinal: Reports nausea and vomiting; Denies abdominal pain or diarrhea Genitourinary Genitourinary ED: Denies dysuria, hematuria or urinary frequency Musculoskeletal Musculoskeletal: Denies back pain, extremity pain or neck pain Integumentary Denies rash or wounds Neurologic Neurologic: Reports other Details: Dizziness ; Denies headache(s), paresthesias or weakness EXAM Physical Exam Const Vital Signs: 01/03/25 15:42 01/03/25 15:43 01/03/25 15:52 Temperature 97.6 F L Temperature Source Temporal Pulse Rate 93 84 Respiratory Rate 18 24 H Blood Pressure 142/69 H 140/84 H Blood Pressure Mean 93 102 Pulse Ox 100 99 Oxygen Delivery Method Room Air Room Air Room Air 01/03/25 16:13 01/03/25 16:30 01/03/25 17:56 Temperature Temperature Source Pulse Rate 83 75 77 Respiratory Rate 16 18 18 Blood Pressure 143/65 H 122/78 H 154/69 H Blood Pressure Mean 91 92 97 Pulse Ox 98 97 98 Oxygen Delivery Method Room Air Room Air Room Air 01/03/25 18:00 01/03/25 18:32 01/03/25 18:38 Temperature Temperature Source Pulse Rate 77 84 84 Respiratory Rate 18 17 Blood Pressure 152/78 H 145/130 H Blood Pressure Mean 102 137 Pulse Ox 98 96 99 Oxygen Delivery Method Room Air 01/03/25 18:43 01/03/25 18:45 01/03/25 18:58 Temperature 98.1 F Temperature Source Pulse Rate 82 83 Respiratory Rate 17 18 Blood Pressure 145/88 H 158/126 H 158/98 H Blood Pressure Mean 107 136 118 Pulse Ox 98 100 99 Oxygen Delivery Method Room Air 01/03/25 19:00 01/03/25 19:15 01/03/25 19:30 Temperature Temperature Source Pulse Rate 79 90 90 Respiratory Rate 11 L 20 H 20 H Blood Pressure 151/75 H 114/84 H 135/80 H Blood Pressure Mean 95 92 95 Pulse Ox 100 99 Oxygen Delivery Method Positive well nourished and well developed General Appearance ED: well developed and NAD HEENT Reports moist mucous membranes normocephalic and atraumatic Eyes Eyes Narrative: Right horizontal nystagmus General Eye ED: Yes normal appearance of both eyes Neck full ROM Chest Wall Chest: Negative for tenderness Resp normal respiratory effort and normal air movement Effort and Inspection: symmetric chest movement; Negative for respiratory distress Cardio regular rate, regular rhythm and no murmurs Peripheral Pulses: pulses 2+ throughout GI normal to inspection, nondistended, normoactive bowel sounds and non-tender Palpation: Negative for guarding or rebound tenderness present Extremity normal to inspection General Extremety ED: Negative for edema or tenderness General Extremity: Negative for edema Neuro oriented x3 and no sensory deficits noted Neuro Narrative: Hints test with horizontal nystagmus to the right. No lag on head turning. Sensorium / Orientation: awake and alert Skin no rashes or lesions noted and no wounds NIHSS NIHSS Initial: 1a Level of Consciousness: 0 1b LOC Questions (Score 2 if aphasic/stupor): 0 1c LOC Commands (Only score 1st attempt): 0 2 Best Gaze (If aphasic, use reflexive mvmts.): 0 3 Visual: 0 4 Facial Palsy: 0 5 Motor Arm Right (UN = amputation/fusion): 0 5 Motor Arm Left: 0 6 Motor Leg Right: 0 6 Motor Leg Left: 0 7 Limb ataxia (Only + if out of proportion): 0 8 Sensory (Aphasia/stupor=0 or 1, coma=2): 0 9 Best Language: 0 10 Dysarthria (mute, coma=2, intubated=UN): 0 11 Extinction and Inattention (only scored if +): 0 Total Score: 0 MDM MDM MDM Narrative Medical decision making narrative: Interventions / MDM: Differential diagnosis: Acute vertigo, history of diabetes Diagnosis considered but do not suspect: N/A My EKG interpretation: Sinus rate of 82, no ST changes. T wave versions leads I and aVL. QTc 469. No T wave inversions compared to March 2018. Imaging independently reviewed and interpreted by myself: CT brain: No acute process. Reviewed by self and discussion with telemetry neurologist. CT angiogram head and neck: External documents reviewed: N/A Test considered but not ordered:N/A ED course: Patient seen in triage due to acute symptoms. Stroke team was activated for sudden dizziness nausea and vomiting. Positive hints test, NIH of 0. IV established, Zofran be ordered. CT head, CT angiogram ordered for further evaluation. Labs are ordered. 1615: Patient evaluated by teleneurologist Dr. Barrientos, discusses sudden onset of symptoms. He was ambulated bedside he is walking slowly however he did not feel he was ataxic. He reviewed his CT head negative he is reviewing the CT angiogram. He will call if negative. This time we will treat symptomatically, did not recommend TNK. Will plan for admission for stroke workup. Blood glucose was 200. EKG sinus rhythm. Creatinine 2.2, creatinine was 1 back in October 2018. I discussed with patient he states his doctor is watching his kidney issues however he does not know his baseline. 1755: CT angiogram reports per radiology nonopacification left vertebral artery of unclear chronicity. He states there is no old for comparison. Patient was clinically feeling better with Reglan he was walking to the restroom. However with acute vertigo posterior circulation symptoms, I will re-discuss with telestroke neurologist concerns and disposition plans. 1818: We spoke with teleneurologist Dr. Barrientos, reports with vertebral arteries, no intervention. Recommend aspirin therapy for treatment. Will admit for MRI. He reports further recommendations will be made after MRI studies. I will speak with hospitalist for admission. I spoke with Dr. Lindsey for admission. Re-evaluation: stable Disposition discussed with patient/family/significant other: Patient and significant other Case discussed with consulting clinician: Telestroke neurologist, hospitalist This note was generated with [employer] dictation software. It may contain incorrect words, spelling, and punctuation that were not noted in checking the note before signing. Lab Data Attestation: I reviewed the patient's lab results. Labs: Laboratory Results - last 24 hr 01/03/25 15:44 WBC 11.8 H RBC 5.41 Hgb 16.2 Hct 48.5 MCV 89.6 MCH 29.9 MCHC 33.4 RDW Std Deviation 42.6 RDW Coeff of Ramone 13.0 Plt Count 221 MPV 10.4 Immature Gran % (Auto) 0.500 Neut % (Auto) 62.1 Lymph % (Auto) 27.6 [place] % (Auto) 7.8 Eos % (Auto) 1.4 Baso % (Auto) 0.6 Absolute Neuts (auto) 7.4 Absolute Lymphs (auto) 3.26 Nucleated RBC % 0 PT 11.6 L INR 0.8 APTT 21.8 L Sodium 138 Potassium 3.4 L Chloride 108 H Carbon Dioxide 21.0 Anion Gap 10 BUN 36 H Creatinine 2.21 H Estim Creat Clear Calc 47.45 Est GFR (MDRD) Af Amer 39 L Est GFR (MDRD) Non-Af 32 L BUN/Creatinine Ratio 16.3 Glucose 206 H Calcium 9.6 Magnesium 2.1 Troponin I High Sens < 3 L Radiography Diagnostic Testing: Clinical Impression(s) from Imaging Studies Brain CT 01/03/25 15:43 IMPRESSION: No acute abnormal intracranial finding. Reading Location: [facility] Head/Neck CTA 01/03/25 15:43 IMPRESSION: Non-opacification of the proximal left vertebral artery of unclear chronicity. No other acute arterial abnormalities of the head or neck. One or more dose reduction techniques were used (e.g., Automated exposure control, adjustment of the mA and/or kV according to patient size, use of iterative reconstruction technique). Reading Location: [facility] Chest X-Ray 01/03/25 16:31 IMPRESSION: No active cardiopulmonary disease. Reading Location: [facility] Stroke Documentation Questions Stroke Team Activated: Yes Reviewed Inclusion/Exclusion criteria: Yes Was Patient considered for Endovascular Intervention?: No-CTA negative, determined not to be an endovascular candidate IV Thrombolytic Administered: No (Not recommended by stroke neurologist) Critical Care Time Critical Care Time: Yes Critical care time (excluding procedures): 30-74 minutes, Discussing w/Patient &/or Family/Stars Specialist, Discussing w/Consultants, Arranging Admission or Transfer, Performing Direct Patient Care at Bedside and - (35 minutes) Discharge Plan Dx/Rx/DC Orders Clinical Impression: Acute severe vertigo, Nausea & vomiting, Occlusion of left vertebral artery, CKD (chronic kidney disease) Disposition Disposition: Acute Care Hospital [facility] Discharge Date/Time: 01/03/25 20:53
[2025-01-03 15:53] LABS: Absolute Lymphocyte Count 3.26 X10^3/uL (0.83-4.51); Absolute Neutrophil Count 7.4 X10^3/uL (2.0-7.7); Basophil# 0.07 X10^3/uL; Basophil% 0.6 % (0-1); Eosinophil# 0.17 X10^3/uL; Eosinophils% 1.4 % (0-5); Hematocrit 48.5 % (40-54); Hemoglobin 16.2 g/dL (13.0-16.5); Lymphocyte # 3.26 X10^3/ul (0.83-4.51); Lymphocyte % 27.6 % (19-41); Mean Corp Hgb Conc 33.4 g/dL (32-36); Mean Corpuscular Hgb 29.9 pg (27.0-32.0); Mean Corpuscular Volume 89.6 fL (80-94); Mean Platelet Vol. 10.4 fl (6.2-12.0); Monocyte# 0.92 X10^3/uL; Monocyte% 7.8 % (0-10); NRBC Flagged by Analyzer 0 % (0-5); Neutrophil # 7.35 X10^3/uL (2.7-7.7); Neutrophil % 62.1 % (47-70); Platelet Count 221 K/mm3 (150-450); RBC Distribution Width SD 42.6 fl (35.1-43.9); Red Blood Count 5.41 M/mm3 (4.6-6.2); White Blood Count 11.8 K/mm3 (4.4-11.0)
[2025-01-03] MEDS: Ondansetron 4 MG/2 ML Vial IV (15:59)
[2025-01-03 16:03] LABS: International Normalized Ratio 0.8; Partial Thromboplast Time 21.8 Seconds (24.1-36.2); Prothrombin Time (Protime)PT. 11.6 SECONDS (11.7-14.9)
--- NOTE | 2025-01-03 16:10 | ED.RN ---
called [facility] line for a third time as we wait to neurologist to beam in
[2025-01-03 16:11] LABS: Anion Gap 10 (5-15); BUN 36 mg/dL (7-18); BUN/Creat Ratio 16.3 RATIO (10-20); Calcium,Total 9.6 mg/dL (8.5-10.1); Chloride 108 mmol/L (98-107); Creatinine, Serum 2.21 mg/dL (0.70-1.30); EST Glomerular Filtration Rate 32 mL/min (>60); Est Glom Filt Rate - Afr Amer 39 mL/min (>60); Estimated Creatinine Clearance 47.45 ml/min; Glucose 206 mg/dL (74-106); Potassium 3.4 mmol/L (3.5-5.1); Sodium Level 138 mmol/L (136-145); Troponin-I HS < 3 pg/mL (3.0-78.0)
[2025-01-03] MEDS: Metoclopramide 10 MG/2 ML Vial 5 MG IV (16:20)
--- NOTE | 2025-01-03 16:25 | CHAPLAIN ---
Type of Pastoral Visit ___ Initial Visit ___ Follow-up Visit ___ On-call Visit ___ General Patient Visit ___ Spiritual Assessment ___ Family Conference ___ Bereavement _x__ Rapid Response ___ Code Blue ___ Other (describe below) Pastoral Care Referral From ___ Patient ___ Family ___ Nurse ___ Physician ___ Meat Apprentice ___ Watch Repairer Apprentice _x__ Other (describe below) Sacrament/Intervention ___ Active listening ___ Anointing ___ Confucianism ___ Bereavement ___ Communion ___ Ifeoma exploration ___ ___ Life review ___ Prayer ___ Reconciliation ___ Sacrament of Sick _x__ Supportive presence ___ Wedding ___ Other (describe below) Pastoral Comments responded to the stroke alert in ED triage; pt had been taken to CT scan right away; the friend from work who brought pt to ED was at triage; this shipwright helper escorted friend to the room and offered support and beverages; family member will be on their way but coming from [facility]; friend said that he would be fine while waiting for family
--- NOTE | 2025-01-03 16:31 | RAD_ITS ---
PROCEDURE: PORTABLE CHEST 1 VIEW REASON FOR EXAM: Neurological deficit. Suspect acute stroke. TECHNIQUE: AP upright portable chest. COMPARISON: No relevant prior. FINDINGS: Lungs are clear of pneumonia and congestion. No pleural effusions, thickening, or pneumothorax. Heart and mediastinum are normal. Great vessels unremarkable. No hilar masses. Bones and soft tissues are unremarkable. Cardiac monitoring leads overlie the chest wall. RAD/Chest 1 View IMPRESSION: No active cardiopulmonary disease. Reading Location: [facility]
[2025-01-03] MEDS: Aspirin 325 MG Tablet PO (18:36)
--- NOTE | 2025-01-03 19:13 | HP.PCM.HOS_ITS ---
[facility] - General General Date of Service: 01/03/25 Chief Complaint: Severe episodic vertigo, dizziness. HPI Narrative The patient is a 64-year-old male with past medical history CKD stage II per previous GFR trending, hypertension, hyperlipidemia, restless leg syndrome, IDDM, morbid obesity, IDDM, Chronic insomnia/? Anxiety/Depression who presents to the [facility] ED on 01/03/2025 with history of sudden onset dizziness while walking with associated nausea as well as emesis with onset while walking in his work with the last known well at 1500 on day of presentation prompting ED evaluation noted to been driven by a coworker. He denies any other type of neurological symptoms. Initial ED NIH stroke scale assessments 0 and repeat NIH stroke scale assessment per neurology telestroke assessment 0 also. Patient does report that 1 year ago he had a similar episode however it was much more short-lived. He notes currently the symptoms have continued into his ED evaluation for several hours. When he had approximately 1 year prior he symptoms started when he was turning in his head in bed and lasted less than 1 minute with resolution following and were attributable to inner ear issues. In the ED patient was unable to ambulate because of dizziness. Workup in the ED included T97.6, heart rate 93, BP 142/69, respiratory rate 18, and a percent on room air with most recent repeat vitals T98.1, heart rate 83, BP 158/98, respiratory rate 18, 99% on room air, CBC with WBC 11.8, hemoglobin 16.2, platelet 221 without marked shift, coags with PT 11.6, PTT 2120 otherwise not marked appearing, BMP with potassium 3.4, chloride 108, BUN/23 6/2.21, GFR 32, glucose 206, troponin less than 3, EKG with sinus rhythm with T wave inversions lead I and aVL new when compared to March 2018 however this is remote since, CT of the brain with no acute intracranial findings, CTA head and neck with nonopacification of the proximal left vertebral artery of unclear chronicity with no other acute intracranial findings, chest x-ray with no acute cardiopulmonary findings. In the ED patient ministered full-strength aspirin therapy, Reglan 5 mg IV x 1, Zofran 4 mg IV x 1. Patient was able to eventually walk to the restroom following reglan. ED physician talked to stroke neurologist about the imaging and at this time recommended only asa. [facility] Medical History Wears glasses Wears dentures Insulin dependent diabetes mellitus History of renal disease Arthritis Episodic ataxia Dietary restriction Non-smoker Cardiology follow-up encounter History of stress test Hx of fracture of leg Family history of colon cancer RLS (restless legs syndrome) Insomnia Hyperlipidemia Hx of adenomatous colonic polyps HTN (hypertension) Home Medications ?Medication ?Instructions ?Recorded ?Last Taken ?Type insulin aspar prt-insulin aspart 15 - 20 unit subcut B ID DIABETES 03/24/18 01/03/25 History 100 unit/mL (70-30) subcutaneous soln (Novolog Mix 70-30 U-100 Insuln) atorvastatin 40 mg tablet 40 mg PO QHS CHOLESTEROL 01/02/25 History benazepril 40 mg tablet (Lotensin) 40 mg PO DAILY BP 1 12/30/17 01/03/25 History insulin degludec 100 unit/mL (3 60 unit SQ QHS DIABETE S 10/30/18 01/02/25 History mL) subcutaneous pen (Tresiba FlexTouch U-100 insulin) celecoxib 200 mg capsule 200 mg PO BID 07/10/2301/03 History hydrochlorothiazide 12.5 mg tablet 12.5 mg PO DAILY 01/03/25 History ropinirole 2 mg tablet 2 mg PO QHS 07/10/23 5 History temazepam 15 mg capsule 15 mg PO QHS 07/10/23 History trazodone 100 mg tablet 100 mg PO QHS 07/10/2301/02 History metformin 500 mg tablet 500 mg PO DAILY 01/03/2502/22 History Allergy/AdvReac Type Severity Reaction Status Date / Time acetaminophen (From Percocet) AdvReac Panic Verified 10/20/23 06:41 attack hydrocodone (From Vicodin) AdvReac Panic Verified 10/20/23 06:41 attack oxycodone (From Percocet) AdvReac Panic Verified 10/20/23 06:41 attack Family History (Updated 01/03/25 @ 20:[address] Keyonna Lindsey MD) Grandmother Colon cancer Brother Colon cancer Mother Diabetes CVA (cerebral vascular accident) Hypertension Father Diabetes Pancreatic cancer Surgical History History of excision of lesion History of removal of retained hardware Hx of umbilical hernia repair Hx of appendectomy Hx of total knee arthroplasty Hx of total hip arthroplasty Hx of colonoscopy Social History (Updated 01/03/25 @ 20:[address] Keyonna Lindsey MD) household members: spouse current occupational status: employed Smoking Status: Never smoker alcohol intake: never substance use type: does not use ROS ROS Narrative Admission Review of Systems: CONSTITUTIONAL: No weight loss, fever, chills, + weakness or fatigue. HEENT: + Lightheadedness/dizziness, vertiginous symptoms, room spinning sensation. Eyes: No visual loss, blurred vision, double vision or yellow sclerae. Ears, Nose, Throat: No hearing loss, sneezing, congestion, runny nose or sore throat. SKIN: No rash or itching, lesions, wounds. CARDIOVASCULAR: No chest pain, chest pressure or chest discomfort, palpitations, edema, orthopnea, syncopal events. RESPIRATORY: No shortness of breath, cough or sputum, wheezing, hemoptysis. GASTROINTESTINAL: + anorexia, nausea, vomiting. No diarrhea, abdominal pain, melena, BRBPR. GENITOURINARY: No dysuria, frequency, urgency or retention. NEUROLOGICAL: + Lightheaded/dizziness, vertiginous symptoms, room spinning sensation. No headache, paralysis, ataxia, numbness or tingling in the extremities, focal weakness, change in bowel or bladder control, seizure. MUSCULOSKELETAL: + muscle, back pain, joint pain or stiffness. HEMATOLOGIC: No anemia, bleeding or bruising. LYMPHATICS: No enlarged nodes. No history of splenectomy. PSYCHIATRIC: No history of depression or anxiety. ENDOCRINOLOGIC: No reports of sweating, cold or heat intolerance. No polyuria or polydipsia. ALLERGIES: No history of asthma, hives, eczema or rhinitis. Vital Signs Vital Signs Vital Signs: 01/03/25 15:42 01/03/25 15:43 01/03/25 15:52 Temperature 97.6 F L Temperature Source Temporal Pulse Rate 93 84 Respiratory Rate 18 24 H Blood Pressure 142/69 H 140/84 H Blood Pressure Mean 93 102 Pulse Ox 100 99 Oxygen Delivery Method Room Air Room Air Room Air 01/03/25 16:13 01/03/25 16:30 01/03/25 17:56 Temperature Temperature Source Pulse Rate 83 75 77 Respiratory Rate 16 18 18 Blood Pressure 143/65 H 122/78 H 154/69 H Blood Pressure Mean 91 92 97 Pulse Ox 98 97 98 Oxygen Delivery Method Room Air Room Air Room Air 01/03/25 18:00 01/03/25 18:43 01/03/25 18:58 Temperature 98.1 F Temperature Source Pulse Rate 77 82 83 Respiratory Rate 18 17 18 Blood Pressure 152/78 H 145/88 H 158/98 H Blood Pressure Mean 102 107 118 Pulse Ox 98 98 99 Oxygen Delivery Method Room Air Room Air Weight Weight: 292 lb 1.8 oz Body Mass Index (BMI) 40.8 Physical Exam Narrative Physical Examination: General: Awake, alert, oriented x 3 and cooperative, seated upright in the ED bed, notes resolution of previous symptoms, has been able to get up and walk without recurrent vertigo. Skin: Normal color, normal turgor, no icterus, no cyanosis except occasional stage ecchymoses, abrasion, notable bilateral lower extremity venous stasis skin changes. HEENT: AT/NC, EOMI, PERRLA, MMM, no carotid bruits or JVD noted; however thickened neck makes evaluation difficult. Lungs: Mildly diminished, greater bases, poor effort, no rales, ronchi or wheezing. Heart: Regular rate and rhythm; no gallop, rub audible. Abdomen: Soft, morbidly obese, NTTP, distant BS, difficult to discern distention and HSM given habitus. Extremities: No cyanosis, no clubbing, see skin, mild pedal to ankle not markedly pitting edema, chronic. Neurological: Patient awake, alert, oriented as noted, cognitive function intact; pupils equally reactive to light and accommodation, cranial nerves grossly normal, moving all 4 extremities, no focal deficits, strength preserved, unable to reproduce any vertiginous symptoms, no evidence of nystagmus, finger- nose and [id number] appropriate, sensation intact, equivocal Babinski. Psychiatric: Affect appears fatigued otherwise normal, no acute evidence of depressive or anxiety feelings but on medications. Results Lab / Micro Data 01/03/25 15:44 01/03/25 15:44 Labs: Laboratory Results - last 24 hr 01/03/25 15:44: WBC 11.8 H, RBC 5.41, Hgb 16.2, Hct 48.5, MCV 89.6, MCH 29.9, MCHC 33.4, RDW Std Deviation 42.6, RDW Coeff of Ramone 13.0, Plt Count 221, MPV 10.4, Immature Gran % (Auto) 0.500, Neut % (Auto) 62.1, Lymph % (Auto) 27.6, Stanly % (Auto) 7.8, Eos % (Auto) 1.4, Baso % (Auto) 0.6, Absolute Neuts (auto) 7.4, Absolute Lymphs (auto) 3.26, Nucleated RBC % 0, PT 11.6 L, INR 0.8, APTT 21.8 L, Sodium 138, Potassium 3.4 L, Chloride 108 H, Carbon Dioxide 21.0, Anion Gap 10, BUN 36 H, Creatinine 2.21 H, Estim Creat Clear Calc 47.45, Est GFR (MDRD) Af Amer 39 L, Est GFR (MDRD) Non-Af 32 L, BUN/Creatinine Ratio 16.3, G lucose 206 H, Calcium 9.6, Troponin I High Sens < 3 L Imaging Radiology Impression Brain CT 01/03/25 15:43 IMPRESSION: No acute abnormal intracranial finding. Reading Location: [facility] Head/Neck CTA 01/03/25 15:43 IMPRESSION: Non-opacification of the proximal left vertebral artery of unclear chronicity. No other acute arterial abnormalities of the head or neck. One or more dose reduction techniques were used (e.g., Automated exposure control, adjustment of the mA and/or kV according to patient size, use of iterative reconstruction technique). Reading Location: [facility] Chest X-Ray 01/03/25 16:31 IMPRESSION: No active cardiopulmonary disease. Reading Location: [facility] Assessment & Plan Assessment/Plan (1) Acute severe vertigo: PLAN: Plan The patient is a 64-year-old male with past medical history CKD stage II per previous GFR trending, Chronic insomnia/? Anxiety/Depression, hypertension, hyperlipidemia, restless leg syndrome, IDDM, morbid obesity, IDDM who presents to the [facility] ED on 01/03/2025 with history of sudden onset dizziness while walking with associated nausea as well as emesis with onset while walking in his work with the last known well at 1500 on day of presentation prompting ED evaluation noted to been driven by a coworker. He notes that the symptoms were very brief and lasted approximately 30 seconds. He denies any other type of neurological symptoms. #1. Dizziness, vertigo concerning for TIA/CVA with incidentally noted non- opacification of the proximal left vertebral artery of unclear chronicity versus BPPV with previous history/M?ni?re's disease: Will admit to PCU, will obtain MRI Brain,ECHO, PT/OT/Speech/Nutrition evaluation per protocol. Will allow permissive HTN, maintain on as, statin w/ AM FLP, fall precautions. Mag, TSH, FLP, HgbA1c requested. Maintain on fall and aspiration precautions. Will continue neurology consultation. Will dose x 1 with meclizine. #2. Questionable acute kidney injury on CKD stage II per previous GFR trending however these labs are remote and this certainly could have progressed renal disease since: Unclear exact etiology, as noted potentially has progressed renal disease as last labs for comparison are from 2018, admission BUN/Cr 36/2.21, GFR 32, previously in the stage II range but this was in 2018, prior baseline creatinine noted to be 1.0-1.2 but again this was from 2018. Will judiciously hydrate, hold nephrotoxic medications and repeat chemistry in AM. If no improvement would further assessment. Again, will need to continue to trend labs to elucidate if this is now chronic or acute as unclear creatinine most recent levels. #3. Hypokalemia: Admission K+ 3.4, magnesium level requested, supplementation given, repeat level in AM. #4. Diabetes mellitus type II with hyperglycemia: Admission glucose on BMP 206, hold oral home regimen, continue home insulin regimen, ADA diet, accu checks w/ ISS, he will A1c requested per stroke protocol, nutrition consulted per stroke protocol. #5. Hypertension: Will maintain permissive hypertension given presentation with urine agents per stroke protocol. #6. Anxiety and depression: We will continue patient home temazepam and trazodone regimen however will hold for sedation. #7. Hyperlipidemia: Continue home statin regimen. AM FLP. #8. Morbid Obesity: Weight loss and lifestyle changes encouraged, nutrition consulted. #9. Restless leg syndrome: We will continue patient home Requip regimen. #10. DVT prophylaxis: Lovenox. #11. CODE status: Patient HCPOA and living will are not in place but he notes his to be his medical decision-maker if necessary. Discussed CODE status at length including difference between FULL code, DNR-CCA and DNR-CC status. Following discussions about the differences in these status, requested full CODE STATUS. Charges/Coding Visit Charges Inpatient E&M: 92470 Init Hosp L3
[2025-01-03 19:53] LABS: Magnesium 2.1 mg/dL (1.6-2.6)
--- NOTE | 2025-01-03 20:58 | CASEMGMT ---
Care Management Face to Face with patient for initial transition planning/care coordination assessment in the ED. This investigative writer introduced self and role at [facility]. Patient alert and oriented. Patient willing to participate in assessment and is able to answer all questions appropriately. Care providers, pharmacy, and demographics verified. Admitting Diagnosis: Acute severe vertigo Other diagnosis history: CKD stage II per previous GFR trending, hypertension, hyperlipidemia, restless leg syndrome, IDDM, morbid obesity, Chronic insomnia PCP: Willam Rosales Specialists: none Preferred Pharmacy: [facility] Insurance: [employer] Prescription Benefit: yes Living Will/HPOA: does not have, but would like to complete while admitted. LNOK: , Romy, and 3 adult children Living Arrangements: with , split level home with 3 steps to enter. Bedroom and bathroom up 5 steps. Independent with all ADLs Transportation: patient drives DME: none HHC: none SNF/Rehab: none Community Resources: none Behavioral Health History: denies, but patient's chart states anxiety and depression. Patient goals: Patient wishes to discharge home, denies need for home health care at this time. Patient states he has no further needs or concerns at this time. Disposition Plan: admission to acute; RN CM/SW to follow for discharge planning needs that may arise. Enedelia Panchal, TUBE SORTER, CLINICAL NURSE OCCUPATIONAL MEDICINE
--- NOTE | 2025-01-03 21:09 | ECHOCS_ITS ---
Reason For Study: CHF Procedure This was a 2D Doppler, Color Flow transthoracic echocardiogram. Contrast injection was performed. Exam performed portable in patient room. Left Ventricle Normal LV size. Left ventricular systolic function is normal. The left ventricular ejection fraction is 60 %. No regional wall motion abnormalities noted. Right Ventricle Normal RV size. Normal systolic function. Atria Normal left atrium. Normal right atrium. Bubble contrast study is negative for PFO/ASD. Mitral Valve Normal mitral valve. Tricuspid Valve Normal tricuspid valve. Aortic Valve The aortic valve is not well visualized. Pulmonic Valve The pulmonic valve is not well visualized. Great Vessels Normal aortic root. The pulmonary is not well visualized. Normal inferior vena cava. Pericardium/Pleural No pericardial effusion. Medication Performed a rapid injection of agitated mix of 9 cc saline and 1cc air to assess for atrial septal defect. Diluted definity 3.5ml given slow IV push to enhance endocardial definition. MMode/2D Measurements & Calculations LVIDd: 4.3 cm IVSd: 1.1 cm Ao root diam: 3.0 cm LVIDs: 3.0 cm LVPWd: 0.90 cm RVDd: 3.2 cm FS: 28.6 % _ LAV(MOD-bp): 48.2 ml LVAd ap4: 25.2 cm2 SV(MOD-sp4): 45.2 ml LAV(MOD-bp) Indexed: 19.5 ml/m2 LVLd ap4: 6.8 cm SI(MOD-sp4): 18.3 ml/m2 LAV(MOD-sp2): 62.6 ml EDV(MOD-sp4): 75.3 ml LAV(MOD-sp4): 36.9 ml EDV(sp4-el): 79.2 ml LVAs ap4: 15.0 cm2 LVLs ap4: 6.3 cm ESV(MOD-sp4): 30.1 ml ESV(sp4-el): 30.5 ml EF(MOD-sp4): 60.0 % EF(sp4-el): 61.5 % _ SV(sp4-el): 48.7 ml LA A4 area: 15.6 cm2 LA dimension(2D): 3.7 cm _ RA A4 area: 8.8 cm2 TAPSE: 2.0 cm Time Measurements MV dec time: 0.20 sec Doppler Measurements & Calculations MV E max jono: 54.7 cm/sec Lat Peak E' Jono: 10.7 cm/sec Med Peak E' Jono: 7.8 cm/sec MV A max jono: 53.8 cm/sec E/E' lat: 5.1 E/E' med: 7.0 MV E/A: 1.0 _ MV dec slope: 276.5 cm/sec2 Ao V2 max: 86.5 cm/sec LV V1 max: 78.9 cm/sec Ao max P.0 mmHg LV V1 max P.5 mmHg Ao V2 mean: 64.0 cm/sec Ao mean P.8 mmHg Ao V2 VTI: 16.6 cm _ PA V2 max: 95.3 cm/sec ECHO/Echo Complete W/ Contrast Interpretation Summary Normal LV size. Left ventricular systolic function is normal. The left ventricular ejection fraction is 60 %. Bubble contrast study is negative for PFO/ASD. Contrast injection was performed. Ordering Physician: Keyonna Lindsey Referring Physician: Willam Rosales Performed By: Avani Best RDCS, RVT
[2025-01-03] MEDS: Potassium Chloride Oral Tablet 20 MEQ 40 MEQ PO (22:24)
[2025-01-03] MEDS: Meclizine HCl 25 MG Tablet PO (22:24)
[2025-01-03] MEDS: Temazepam 15 MG Capsule PO (22:24)
[2025-01-03] MEDS: Celecoxib 200 MG Capsule PO (22:24)
[2025-01-03] MEDS: traZODone 100 MG Tablet PO (22:24)
[2025-01-03] MEDS: Pramipexole Di-HCl 1 MG Tablet PO (22:24)
[2025-01-03] MEDS: Atorvastatin Calcium 40 MG Tablet PO (22:25)
[2025-01-03] MEDS: Insulin Glargine-YFGN 100 UNIT/ML Pen 60 UNIT SC (22:32)
[2025-01-03] MEDS: Insulin Lispro 100 UNIT/ML INSULN.PEN SC (22:38)
[2025-01-03] MEDS: 0.9% Normal Saline (1000mL) 1,000 ML 100 ML IV (22:54)
[2025-01-03 23:08] LABS: Bedside Glucose 274 mg/dL (74-106)
[2025-01-04 01:30] VITALS: BP 116/74; PULSE 80; RESP 16; TEMP 36.3; O2SAT 98
[2025-01-04 05:55] VITALS: BMI 41.3
[2025-01-04 06:54] LABS: Bedside Glucose 120 mg/dL (74-106)
[2025-01-04 07:26] LABS: Bedside Glucose 200 mg/dL (74-106)
[2025-01-04 08:01] LABS: Absolute Lymphocyte Count 1.56 X10^3/uL (0.83-4.51); Basophil# 0.03 X10^3/uL; Basophil% 0.4 % (0-1); Eosinophils% 1.4 % (0-5); Hematocrit 44.2 % (40-54); Hemoglobin 14.5 g/dL (13.0-16.5); Lymphocyte # 1.56 X10^3/ul (0.83-4.51); Lymphocyte % 21.2 % (19-41); Mean Corp Hgb Conc 32.8 g/dL (32-36); Mean Corpuscular Volume 91.3 fL (80-94); Mean Platelet Vol. 10.4 fl (6.2-12.0); Monocyte# 0.61 X10^3/uL; Monocyte% 8.3 % (0-10); NRBC Flagged by Analyzer 0 % (0-5); Neutrophil # 5.04 X10^3/uL (2.7-7.7); Neutrophil % 68.4 % (47-70); Platelet Count 155 K/mm3 (150-450); RBC Distribution Width CV 13.2 % (11.6-14.6); RBC Distribution Width SD 44.8 fl (35.1-43.9); Red Blood Count 4.84 M/mm3 (4.6-6.2); White Blood Count 7.4 K/mm3 (4.4-11.0)
[2025-01-04] MEDS: LORazepam 0.5 MG Tablet PO (08:38)
[2025-01-04] MEDS: Aspirin 81 MG TAB.CHEW PO (08:38)
[2025-01-04] MEDS: Enoxaparin 40 MG/0.4 ML Syringe SC (08:38)
[2025-01-04] MEDS: Celecoxib 200 MG Capsule PO (08:38)
[2025-01-04 08:40] VITALS: BP 107/71; PULSE 85; RESP 16; TEMP 36.4; O2SAT 97
--- NOTE | 2025-01-04 09:00 | MRI_ITS ---
PROCEDURE: BRAIN WITHOUT CONTRAST REASON FOR EXAM: Stroke. TECHNIQUE: Multiplanar, multisequence MRI of the brain without intravenous gadolinium-based contrast. COMPARISON: 01/03/2025. FINDINGS: Left cerebellar small focus of restricted diffusion compatible with an acute infarction. Mild global parenchymal atrophy. Mild chronic microvascular ischemia. No extra-axial blood or fluid collections. The paranasal sinuses are clear. MRI/Brain without Contrast IMPRESSION: Left cerebellar acute infarction. Critical results were communicated to Amelia Sandhu at 1100 hours. Reading Location: [id number]
[2025-01-04 09:05] LABS: AST(SGOT) 16 U/L (15-37); Alanine Aminotransfer ALT/SGPT 21 U/L (16-61); Albumin, Serum 3.2 g/dL (3.2-5.0); Alkaline Phosphatase 87 U/L (45-117); Anion Gap 9 (5-15); BUN 29 mg/dL (7-18); BUN/Creat Ratio 17.7 RATIO (10-20); Chloride 112 mmol/L (98-107); Cholesterol 138 mg/dL (200); Creatinine, Serum 1.64 mg/dL (0.70-1.30); EST Glomerular Filtration Rate 45 mL/min (>60); Est Glom Filt Rate - Afr Amer 55 mL/min (>60); Estimated Creatinine Clearance 65.41 ml/min; Globulin 3.3 g/dL (2.2-4.2); Glucose 113 mg/dL (74-106); High Density Lipoprotein 38 mg/dL; Protein, Total 6.5 g/dL (6.4-8.2); Sodium Level 142 mmol/L (136-145); Triglycerides 194 mg/dL; Very Low Density Lipoprotein 39 mg/dL (5-40)
[2025-01-04 10:00] LABS: Hemoglobin A1c 8.8 % (3.8-5.6)
[2025-01-04 11:35] VITALS: BP 130/72; PULSE 76; RESP 16; TEMP 36.4; O2SAT 99
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
[2025-01-04 11:56] LABS: Bedside Glucose 120 mg/dL (74-106)
--- NOTE | 2025-01-04 13:40 | CASEMGMT ---
SW met with patient as he expressed interest to ED SW about completing a Healthcare Power of Manager Float (HCPOA). Patient asked SW to explain HCPOA and Healthcare Living Will (HCLW). SW explained both documents. Patient wanted to talk with his first. SW let patient know should he decide to do them to let staff know and they can notify SW. Patient thanked SW for the information. Hemalatha Jeffery GALLEY BOY JENNY
--- NOTE | 2025-01-04 13:42 | CASEMGMT ---
SW completed a PHQ 9 with patient as he had a Stroke. Patient scored a 0 which indicates no depression. Hemalatha ALVARADO
[2025-01-04 14:00] VITALS: BP 126/68; PULSE 72; RESP 18; TEMP 36.6; O2SAT 97
[2025-01-04 14:01] VITALS: BMI 41.3
[2025-01-04 14:21] VITALS: BMI 41.3
--- NOTE | 2025-01-04 15:34 | PCM.DC ---
Discharge Instructions Diet Discharge Diet: Low fat / Low cholesterol DC O2, CPAP, BIPAP needs Home O2 Discharge instructions: No Dressing / Incision Discharge Activity: Return to Normal Activity Weight Bearing Status: Weight bearing as tolerated Dressing / Incision Call your doctor if you observe: Fever of 101 or Higher, Shortness of breath, Dizziness and Swelling in the ankles Follow Up Care Test Results: Test results from this visit will be discussed in further detail at your follow-up appointment, if applicable. Discharge Plan Admission Admit Date/Time: 01/03/25 19:31 Primary Reason for Your Visit: acute CVA Attending Provider: Linda Ram Primary Care Provider: Willam Rosales Consulting Providers: Jose Angel Chang; David Collazo; Brandi Ochoa; Pita Marti; Deisy Kahn; Pranay Fair; Dodie Yun; Tito Larsen; Donato Snell; Josué Ching; Aimee Bruce; Az Harrison; Gail Hinkle; Sergo Cowan; Sulma Sutton; Rex Bass; Suni Yi; Cory Barrientos; Ambar Mansfield; Alyssia Wang; Keyonna Lindsey Instructions Patient Instructions: Discharge Instructions for Stroke Discharge Orders/Prescriptions Prescriptions: New clopidogrel 75 mg Tablet 75 mg PO DAILY Qty: 21 0RF aspirin 81 mg Tablet,Chewable 81 mg PO BREAKFAST Qty: 30 2RF Continued ropinirole 2 mg tablet 2 mg PO QHS Rx Instructions: administer 1-3 hours before bedtime temazepam 15 mg capsule 15 mg PO QHS trazodone 100 mg tablet 100 mg PO QHS hydrochlorothiazide 12.5 mg tablet 12.5 mg PO DAILY insulin asp prt-insulin aspart [Novolog Mix 70-30 U-100 Insuln] 100 UNIT/ML solution 15 - 20 unit subcut BID Patient Comments: SLIDING SCALE atorvastatin 40 MG tablet 40 mg PO QHS benazepril [Lotensin] 40 MG tablet 40 mg PO DAILY insulin degludec [Tresiba FlexTouch U-100] 100 UNIT/ML insulin pen 60 unit SQ QHS metformin 500 mg tablet 500 mg PO DAILY Discontinued celecoxib 200 mg capsule 200 mg PO BID Referrals / Follow Up: Dennys Alan MD [Non-Staff -Ordering Privileges] - Within 2 Weeks (see to establish care for PCP) Willam Rosales MD [Primary Care Provider] - Within 1 Week Disposition Disposition (needs filled in before D/C Order can be placed): Home, Self Care
--- NOTE | 2025-01-04 15:35 | DS.PCM_ITS ---
Providers Date of Admission: 01/03/25 Date of Discharge: 01/04/25 Primary Care Physician: Dr. Willam Rosales MD Consultations 01/03/25 21:09 Consult: Tele-Neurology Routine Consulting Provider: [facility] Reason for Consult: Acute Ischemic Stroke/TIA EMERGENT Consult: No MD Notified: Yes Date Notified: 01/04/25 Time Notified: 02:51 Method of Notification: Answering Service Nursing Unit Staff Notify [facility] of Tele-Neurology Consult: Yes Reason For Visit: VERTIGO Diagnosis Discharge Diagnosis (1) Acute severe vertigo: Status: Acute Code(s): R42 - Dizziness and giddiness Medications at Discharge Home Medications insulin aspar prt-insulin aspart 100 unit/mL (70-30) subcutaneous soln (Novolog Mix 70-30 U-100 Insuln) 15 - 20 unit subcut BID DIABETES 03/24/18 atorvastatin 40 mg tablet 40 mg PO QHS CHOLESTEROL 10/30/18 benazepril 40 mg tablet (Lotensin) 40 mg PO DAILY BP 10/30/18 insulin degludec 100 unit/mL (3 mL) subcutaneous pen (Tresiba FlexTouch U-100 insulin) 60 unit SQ QHS DIABETES 10/30/18 hydrochlorothiazide 12.5 mg tablet 12.5 mg PO DAILY diuretic 07/10/23 ropinirole 2 mg tablet 2 mg PO QHS restless legs 07/10/23 temazepam 15 mg capsule 15 mg PO QHS sleep 07/10/23 trazodone 100 mg tablet 100 mg PO QHS sleep 07/10/23 metformin 500 mg tablet 500 mg PO DAILY diabetes 01/03/25 aspirin 81 mg chewable tablet 81 mg PO BREAKFAST #30 tabs 01/04/25 clopidogrel 75 mg tablet 75 mg PO DAILY #21 tabs 01/04/25 Hospital Course Operations None Procedures 2-D Echocardiogram Summary of Care Provided Minutes Spent on Discharge: 42 Hospital Course: Patient is a 64-year-old male with past medical history as outlined was admitted to the ED on 01/03/2025 with a complaint of vertigo and dizziness. Patient said he was at work and suddenly felt dizzy and lightheaded whilst walking. He had associated nausea and vomiting. His last known well was 1500 on day of admission. He was brought into the ED by coworker. When he came in his symptoms had improved and his NIH stroke scale was 0 at that time. He said he had had a similar episode about a year ago and was told that he had fluid in his in the ear by ENT. His symptoms had resolved and had not recurred again. CT of the brain on admission showed no acute ST changes. EKG showed normal sinus rhythm with T wave inversions in lead I and aVL. CT of the head and neck showed no hemodynamically significant stenosis. He was given aspirin in the ED and admitted to be managed for vertigo to rule out stroke. He did have MRI of the brain which showed a left cerebellar small focus of restricted diffusion compatible with an acute infarction and mild chronic microvascular ischemia. He was placed on aspirin and Plavix as well as high intensity statin. He had 2D echo which showed EF of 60% with no regional wall motion abnormalities seen and normal left ventricular systolic function. Bubble study was negative for PFO or ASD. Patient symptoms did not recur and he felt well he also did well with therapy. He was discharged home on 01/04/2025. He was discharged on p.o. aspirin 81 mg daily and p.o. Plavix 75 mg daily for 21 days and then after that to continue with only aspirin 81 mg daily. He is to continue his high intensity statin. He was referred to neurology on outpatient basis. He is to follow-up with his primary care doctor within 1 to 2 weeks. Patient seen and examined prior to discharge. He had no active complaints. Review of systems otherwise negative. Labs and vitals reviewed. Home medication reviewed and reconciled. Physical Exam Const alert, oriented x3 and no apparent distress General Appearance: cooperative, comfortable and well kempt Orientation / Consciousness: awake Exam Limitations: no limitations HEENT normocephalic, head/scalp atraumatic, hearing grossly normal bilaterally, moist oral mucous membranes and oropharynx normal Mouth: oral and palatal mucosa normal Eyes PERRL, EOMs intact bilaterally and conjunctivae normal Neck no lymphadenopathy, supple and no JVD Resp normal respiratory effort, no retractions, no use of accessory muscles and clear to auscultation bilaterally Cardio regular rate, regular rhythm, S1 normal heart sound, S2 normal heart sound and no murmurs GI normal to inspection, nondistended, normoactive bowel sounds, soft to palpation, non-tender and non-distended Extremity normal to inspection, full ROM and no clubbing, cyanosis or edema Skin no rashes or lesions noted Neuro oriented x3, CN's II-XII intact bilaterally, moves all extremities and no focal motor deficits Sensorium / Orientation: awake and alert Motor Exam: strength 5/5 throughout Psych affect normal Weight / BMI Weight Weight: 296 lb 11.875 oz Body Mass Index (BMI) 41.3 ABG / Lab / Microbiology Data 01/04/25 07:09 01/04/25 07:09 Laboratory: Laboratory Results - last 24 hr 01/03/25 15:42: POC Glucose 200 H 01/03/25 15:44: Magnesium 2.1 01/03/25 22:31: POC Glucose 274 H 01/04/25 06:37: POC Glucose 120 H 01/04/25 07:09: WBC 7.4, RBC 4.84, Hgb 14.5, Hct 44.2, MCV 91.3, MCH 30.0, MCHC 32.8, RDW Std Deviation 44.8 H, RDW Coeff of Ramone 13.2, Plt Count 155, MPV 10.4, Immature Gran % (Auto) 0.300, Neut % (Auto) 68.4, Lymph % (Auto) 21.2, [place] % (Auto) 8.3, Eos % (Auto) 1.4, Baso % (Auto) 0.4, Absolute Neuts (auto) 5.0, Absolute Lymphs (auto) 1.56, Nucleated RBC % 0, Sodium 142, Potassium 4.0, C hloride 112 H, Carbon Dioxide 21.0, Anion Gap 9, BUN 29 H, Creatinine 1.64 H, Estim Creat Clear Calc 65.41, Est GFR (MDRD) Af Amer 55 L, Est GFR (MDRD) Non-Af 45 L, BUN/Creatinine Ratio 17.7, Glucose 113 H, Hemoglobin A1c 8.8 H, Calcium 9.0, Total Bilirubin 0.50, AST 16, ALT 21, Alkaline Phosphatase 87, Total Protein 6.5, Albumin 3.2, Globulin 3.3, Albumin/Globulin Ratio 1.0, Triglycerides 194, Cholesterol 138, LDL Cholesterol 61, VLDL Cholesterol 39, HDL Cholesterol 38 L, TSH 2.180 01/04/25 11:32: POC Glucose 120 H Radiography Diagnostic Testing: Radiology Impression Brain CT 01/03/25 15:43 IMPRESSION: No acute abnormal intracranial finding. Reading Location: [facility] Head/Neck CTA 01/03/25 15:43 IMPRESSION: Non-opacification of the proximal left vertebral artery of unclear chronicity. No other acute arterial abnormalities of the head or neck. One or more dose reduction techniques were used (e.g., Automated exposure control, adjustment of the mA and/or kV according to patient size, use of iterative reconstruction technique). Reading Location: [facility] Chest X-Ray 01/03/25 16:31 IMPRESSION: No active cardiopulmonary disease. Reading Location: [facility] Echocardiogram 01/03/25 21:09 Interpretation Summary Normal LV size. Left ventricular systolic function is normal. The left ventricular ejection fraction is 60 %. Bubble contrast study is negative for PFO/ASD. Contrast injection was performed. Ordering Physician: Keyonna Lindsey Referring Physician: Willam Rosales Performed By: Avani Best, MADAI, RVT Brain MRI 01/04/25 09:00 IMPRESSION: Left cerebellar acute infarction. Critical results were communicated to Amelia Sandhu at 1100 hours. Reading Location: [facility] D/C Instructions Discharge Diet: Low fat / Low cholesterol Discharge Activity: Return to Normal Activity Weight Bearing Status: Weight bearing as tolerated Call your doctor if you observe: Fever of 101 or Higher, Shortness of breath, Dizziness and Swelling in the ankles DC O2, CPAP, BIPAP Needs Home O2 Discharge instructions: No Meaningful Use Info Meaningful Use Meaningful Use Diagnoses (Choose all that apply): Ischemic CVA CVA Therapy Assessed for PT,OT and/or ST?: Yes Ischemic Stroke Antithrombotic order at d/c?: Yes Dx of Atrial fib/flutter?: No Anticoagulant at discharge?: No Reason anticoagulant not ordered: Treatment not Indicated Statin Dosing Therapy Reference: STATIN DOSE THERAPY REFERENCE: * Patients > 75 years receive moderate or high dose statin therapy. * Patients 75 years or YOUNGER should receive HIGH intensity statin dose unless contraindicated. You will be required to document reason for non-treatment if statin daily dose does not meet guidelines. HIGH DOSE STATIN THERAPY DAILY Atorvastatin > than or = to 40 mg Rosuvastatin > than or = to 20 mg Amlodipine + Atorvastatin > than or = to 2.5/40 mg Ezetimibe + Simvastatin 10/80 mg Simvastatin 80mg Statins at discharge?: Yes If patient is 75 or younger, pt will be discharged on HIGH intensity statin.: Y es Primary Dx Acute Ischemic CVA?: Yes IV thrombolytic ordered during stay?: No Reason IV thrombolytic not ordered: Treatment not Indicated Discharge Plan Admission Admit Date/Time: 01/03/25 19:31 Primary Reason for Your Visit: acute CVA Attending Provider: Linda Ram Primary Care Provider: Willam Rosales Consulting Providers: Jose Angel Chang; David Collazo; Brandi Ochoa; Pita Marti; Deisy Kahn; Pranay Fair; Dodie Yun; Tito Larsen; Donato Snell; Josué Ching; Aimee Bruce; Az Harrison; Gail Hinkle; Sergo Cowan; Sulma Sutton; Rex Bass; Suni Yi; Cory Barrientos; Ambar Mansfield; Alyssia Wang; Keyonna Lindsey Instructions Patient Instructions: Discharge Instructions for Stroke Discharge Orders/Prescriptions Prescriptions: New clopidogrel 75 mg Tablet 75 mg PO DAILY Qty: 21 0RF aspirin 81 mg Tablet,Chewable 81 mg PO BREAKFAST Qty: 30 2RF Continued ropinirole 2 mg tablet 2 mg PO QHS Rx Instructions: administer 1-3 hours before bedtime temazepam 15 mg capsule 15 mg PO QHS trazodone 100 mg tablet 100 mg PO QHS hydrochlorothiazide 12.5 mg tablet 12.5 mg PO DAILY insulin asp prt-insulin aspart [Novolog Mix 70-30 U-100 Insuln] 100 UNIT/ML solution 15 - 20 unit subcut BID Patient Comments: SLIDING SCALE atorvastatin 40 MG tablet 40 mg PO QHS benazepril [Lotensin] 40 MG tablet 40 mg PO DAILY insulin degludec [Tresiba FlexTouch U-100] 100 UNIT/ML insulin pen 60 unit SQ QHS metformin 500 mg tablet 500 mg PO DAILY Discontinued celecoxib 200 mg capsule 200 mg PO BID Other Ambulatory Orders: 30 Day Event Recorder [employer]i (Urgent) Timeframe: 1 Day Facility: [facility] - Location: Cardiovascular Services Ordered By: Dr. Linda Ram Referrals / Follow Up: Dennys Alan MD [Non-Staff -Ordering Privileges] - Within 2 Weeks (see to establish care for PCP) Willam Rosales MD [Primary Care Provider] - Within 1 Week Disposition Disposition (needs filled in before D/C Order can be placed): Home, Self Care Charges/Coding Visit Charges Inpatient E&M: 92594 Disch Hosp >30min
--- NOTE | 2025-01-04 16:05 | CASEMGMT ---
Patient has order for discharge. RN CM in to discuss needs at discharge, at bedside. Patient denies needs or help at discharge. Patient had no further questions or concerns.
--- NOTE | 2025-01-04 16:59 | NEURO.CONS ---
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 Stroke etiology pending work up Plan: DAPT for 21 days then ASA 81 mg High intensity statin TTE Event monitor if TTE is negative vascular risk modifications PT/OT HPI Consult Data Date of Consult: 01/04/25 PCP / Referring MD: 64 yo man with hx of CKD, HTN and HLD, DM2 and morbid obesity presented with dizziness and unsteady gait. last time known well was 1500 on the 01/03 whe had sudden onset vertigo. he was taken to the ED by his coworker stroke alert was called. CT head showed no acute findings, CTA showed left vert occlusion. his symptoms has improved since and he is back to [facility] HPI Narrative HPI Narrative: NATALIA ESQUIVEL, is a 64 M who presents [facility] Medical History Wears glasses Wears dentures Insulin dependent diabetes mellitus History of renal disease Arthritis Episodic ataxia Dietary restriction Non-smoker Cardiology follow-up encounter History of stress test Hx of fracture of leg Family history of colon cancer RLS (restless legs syndrome) Insomnia Hyperlipidemia Hx of adenomatous colonic polyps HTN (hypertension) Home Medications ?Medication ?Instructions ?Recorded ?Last Taken ?Type insulin aspar prt-insulin aspart 15 - 20 unit subcut BID DIABETES 03/24/18 01/03/25 History 100 unit/mL (70-30) subcutaneous soln (Novolog Mix 70-30 U-100 Insuln) atorvastatin 40 mg tablet 40 mg PO QHS CHOLESTEROL 10/30/18 01/02/25 History benazepril 40 mg tablet (Lotensin) 40 mg PO DAILY BP 10/30/18 01/03/25 History insulin degludec 100 unit/mL (3 60 unit SQ QHS DIABETES 10/30/18 01/02/25 History mL) subcutaneous pen (Tresiba FlexTouch U-100 insulin) hydrochlorothiazide 12.5 mg tablet 12.5 mg PO DAILY diuretic 07/10/23 01/03/25 History ropinirole 2 mg tablet 2 mg PO QHS restless legs 07/10/23 01/02/25 History temazepam 15 mg capsule 15 mg PO QHS sleep 07/10/23 01/02/25 History trazodone 100 mg tablet 100 mg PO QHS sleep 07/10/23 01/02/25 History metformin 500 mg tablet 500 mg PO DAILY diabetes 01/03/25 01/03/25 History aspirin 81 mg chewable tablet 81 mg PO BREAKFAST #30 tabs 01/04/25 Unknown Rx clopidogrel 75 mg tablet 75 mg PO DAILY #21 tabs 01/04/25 Unknown Rx Allergy/AdvReac Type Severity Reaction Status Date / Time acetaminophen (From Percocet) AdvReac Panic Verified 10/20/23 06:41 attack hydrocodone (From Vicodin) AdvReac Panic Verified 10/20/23 06:41 attack oxycodone (From Percocet) AdvReac Panic Verified 10/20/23 06:41 attack Family History (Updated 01/03/25 @ 20:[address] Keyonna Lindsey MD) Grandmother Colon cancer Brother Colon cancer Mother Diabetes CVA (cerebral vascular accident) Hypertension Father Diabetes Pancreatic cancer Surgical History History of excision of lesion History of removal of retained hardware Hx of umbilical hernia repair Hx of appendectomy Hx of total knee arthroplasty Hx of total hip arthroplasty Hx of colonoscopy Social History (Updated 01/03/25 @ 20:[address] Keyonna Lindsey MD) household members: spouse current occupational status: employed Smoking Status: Never smoker alcohol intake: never substance use type: does not use Vital Signs Vital Signs Vital Signs: 01/03/25 17:56 01/03/25 18:00 01/03/25 18:32 Temperature Temperature Source Pulse Rate 77 77 84 Pulse Strength Respiratory Rate 18 18 17 Respiratory Effort Respiratory Depth Respiratory Pattern Blood Pressure 154/69 H 152/78 H Blood Pressure Mean 97 102 Blood Pressure Source Blood Pressure Position Blood Pressure Location Pulse Ox 98 98 96 Oxygen Delivery Method Room Air Room Air 01/03/25 18:38 01/03/25 18:43 01/03/25 18:45 Temperature 98.1 F Temperature Source Pulse Rate 84 82 Pulse Strength Respiratory Rate 17 Respiratory Effort Respiratory Depth Respiratory Pattern Blood Pressure 145/130 H 145/88 H 158/126 H Blood Pressure Mean 137 107 136 Blood Pressure Source Blood Pressure Position Blood Pressure Location Pulse Ox 99 98 100 Oxygen Delivery Method 01/03/25 18:58 01/03/25 19:00 01/03/25 19:15 Temperature Temperature Source Pulse Rate 83 79 90 Pulse Strength Respiratory Rate 18 11 L 20 H Respiratory Effort Respiratory Depth Respiratory Pattern Blood Pressure 158/98 H 151/75 H 114/84 H Blood Pressure Mean 118 95 92 Blood Pressure Source Blood Pressure Position Blood Pressure Location Pulse Ox 99 100 99 Oxygen Delivery Method Room Air 01/03/25 19:30 01/03/25 19:45 01/03/25 19:46 Temperature Temperature Source Pulse Rate 90 96 91 Pulse Strength Respiratory Rate 20 H 18 18 Respiratory Effort Respiratory Depth Respiratory Pattern Blood Pressure 135/80 H 155/72 H Blood Pressure Mean 95 92 Blood Pressure Source Blood Pressure Position Blood Pressure Location Pulse Ox 100 99 Oxygen Delivery Method 01/03/25 20:00 01/03/25 20:00 01/03/25 20:15 Temperature Temperature Source Pulse Rate 88 Pulse Strength Respiratory Rate 18 Respiratory Effort Respiratory Depth Respiratory Pattern Blood Pressure 117/50 L 159/70 H 138/52 H Blood Pressure Mean 72 95 76 Blood Pressure Source Blood Pressure Position Blood Pressure Location Pulse Ox 94 98 95 Oxygen Delivery Method Room Air 01/03/25 20:30 01/03/25 21:30 01/03/25 22:00 Temperature 97.3 F L Temperature Source Temporal Pulse Rate 82 Pulse Strength Normal (2+) Respiratory Rate 18 Respiratory Effort Respiratory Depth Respiratory Pattern Blood Pressure 117/50 L 142/65 H Blood Pressure Mean 71 90 Blood Pressure Source Monitor Blood Pressure Position Semi-Fowlers Blood Pressure Location Left Arm Pulse Ox 93 100 Oxygen Delivery Method Room Air 01/03/25 22:00 01/03/25 22:27 01/04/25 01:30 Temperature 97.3 F L Temperature Source Temporal Pulse Rate 80 Pulse Strength Respiratory Rate 16 Respiratory Effort Normal Non-Labored Respiratory Depth Normal Respiratory Pattern Normal Blood Pressure 116/74 Blood Pressure Mean 88 Blood Pressure Source Monitor Blood Pressure Position Sitting Blood Pressure Location Left Arm Pulse Ox 100 98 Oxygen Delivery Method Room Air Room Air Room Air 01/04/25 08:40 01/04/25 08:44 01/04/25 11:35 Temperature 97.5 F L 97.5 F L Temperature Source Oral Oral Pulse Rate 85 76 Pulse Strength Respiratory Rate 16 16 Respiratory Effort Normal Non-Labored Respiratory Depth Normal Respiratory Pattern Normal Blood Pressure 107/71 130/72 H Blood Pressure Mean 83 91 Blood Pressure Source Blood Pressure Position Blood Pressure Location Pulse Ox 97 99 Oxygen Delivery Method Room Air Room Air Room Air 01/04/25 13:54 01/04/25 14:00 Temperature 97.9 F Temperature Source Oral Pulse Rate 72 Pulse Strength Respiratory Rate 18 Respiratory Effort Normal Non-Labored Respiratory Depth Normal Respiratory Pattern Normal Blood Pressure 126/68 H Blood Pressure Mean 87 Blood Pressure Source Blood Pressure Position Blood Pressure Location Pulse Ox 97 Oxygen Delivery Method Room Air Room Air Weight Weight: 134.6 kg Body Mass Index (BMI) 41.3 EEG Results Procedure Details EEG Procedure Details: NATALIA ESQUIVEL is a 64 year old M with a past medical history of , who presents for evaluation of Electroencephalogram on DATE at TIME NIHSS NIHSS Nursing Documentation NIHSS Nursing Documentation: NIHSS: Ischemic Stroke/TIA Start: 01/03/25 21:09 Text: For PCU Patients: NIH and Neuro Check every 4 Status: Active hours, PRN and with change in RN caregiver. Freq: [id number] Protocol: Activity Type Activity Date Activity User E-sign Co-sign Detail Recorded Client Recorded Date Recorded By Document 01/04/25 14:00 MM [id number] 01/04/25 14:00 MM 01/04/25 14:00 NIH Stroke Scale [NIHSS] A score of 0 is normal or asymptomatic . Total possible score is 42. Inpatient: RN or Physician to activate a stroke alert for onset of new stroke symptoms or with NIHSS increase >/= 3 points. Following change in neurological status, NIHSS will be performed per physician order or more frequently PRN. -1a. Level of Consciousness Alert; keenly responsive -1b. LOC Questions Answers BOTH questions correctly. -1c. LOC Commands Performs both tasks correctly . -2. Best Gaze Normal -3. Visual No visual loss -4. Facial Palsy Normal symmetrical movements -5a. Left Arm No drift; arm holds 90 (or 45 ) degrees for full 10 seconds -5b. Right Arm No drift; arm holds 90 (or 45 ) degrees for full 10 seconds -6a. Left Leg No drift; leg holds 30-degree position for full 5 seconds -6b. Right Leg No drift; leg holds 30-degree position for full 5 seconds -7. Limb Ataxia Absent -8. Sensory Normal; no sensory loss -9. Best Language No aphasia; normal -10. Dysarthria Normal -11. Extinction and Inattention No abnormality -Total 0 Query Text:A score of 0 is normal or asymptomatic. Total possible score is 42 . ED: Notify Physician for NIHSS increase by > / = 3 points. Inpatient: RN or Physician to activate a stroke alert for NIHSS increase of > / = 3 points. Coma Scale [Assess] -Eye Opening Spontaneous -Motor Obeys Commands -Verbal Oriented [Total] -Coma Scale Total 15 Physical Exam Narrative AOx3 following commands language intact PERRLA,EMOI face symmetric move all ext antigravity FTN with no dysmetria Lab / Micro Data 01/04/25 07:09 01/04/25 07:09 Labs: Laboratory Results - last 24 hr 01/03/25 15:42: POC Glucose 200 H 01/03/25 15:44: Magnesium 2.1 01/03/25 22:31: POC Glucose 274 H 01/04/25 06:37: POC Glucose 120 H 01/04/25 07:09: WBC 7.4, RBC 4.84, Hgb 14.5, Hct 44.2, MCV 91.3, MCH 30.0, MCHC 32.8, RDW Std Deviation 44.8 H, RDW Coeff of Ramone 13.2, Plt Count 155, MPV 10.4, Immature Gran % (Auto) 0.300, Neut % (Auto) 68.4, Lymph % (Auto) 21.2, [place] % (Auto) 8.3, Eos % (Auto) 1.4, Baso % (Auto) 0.4, Absolute Neuts (auto) 5.0, Absolute Lymphs (auto) 1.56, Nucleated RBC % 0, Sodium 142, Potassium 4.0, Chloride 112 H, Carbon Dioxide 21.0, Anion Gap 9, BUN 29 H, Creatinine 1.64 H, Estim Creat Clear Calc 65.41, Est GFR (MDRD) Af Amer 55 L, Est GFR (MDRD) Non-Af 45 L, BUN/Creatinine Ratio 17.7, Glucose 113 H, Hemoglobin A1c 8.8 H, Calcium 9.0, Total Bilirubin 0.50, AST 16, ALT 21, Alkaline Phosphatase 87, Total Protein 6.5, Albumin 3.2, Globulin 3.3, Albumin/Globulin Ratio 1.0, Triglycerides 194, Cholesterol 138, LDL Cholesterol 61, VLDL Cholesterol 39, HDL Cholesterol 38 L, TSH 2.180 01/04/25 11:32: POC Glucose 120 H Imaging Radiology Impression Head/Neck CTA 01/03/25 15:43 IMPRESSION: Non-opacification of the proximal left vertebral artery of unclear chronicity. No other acute arterial abnormalities of the head or neck. One or more dose reduction techniques were used (e.g., Automated exposure control, adjustment of the mA and/or kV according to patient size, use of iterative reconstruction technique). Reading Location: [facility] Chest X-Ray 01/03/25 16:31 IMPRESSION: No active cardiopulmonary disease. Reading Location: [facility] Echocardiogram 01/03/25 21:09 Interpretation Summary Normal LV size. Left ventricular systolic function is normal. The left ventricular ejection fraction is 60 %. Bubble contrast study is negative for PFO/ASD. Contrast injection was performed. Ordering Physician: Keyonna Lindsey Referring Physician: Willam Rosales Performed By: Avani Best, MADAI, RVT Brain MRI 01/04/25 09:00 IMPRESSION: Left cerebellar acute infarction. Critical results were communicated to Amelia Sandhu at 1100 hours. Reading Location: [facility] Active Medications Active Medications Active Medications: Current Medications Generic Name Dose Route Start Last Admin Trade Name Freq PRN Reason Stop Dose Admin Acetaminophen 650 mg 01/03/25 21:09 Acetaminophen 325 Mg Tablet PO Q4H PRN PRN Fever, pain 1-10/10 Al Hydroxide/Mg Hydroxide 30 ml 01/03/25 21:09 Mag Hydrox/Al Hydrox/Simeth 30 Ml Udc PO Q6H PRN PRN Gastric Burning Albuterol Sulfate 2.5 mg 01/03/25 21:09 Albuterol 2.5 Mg/3 Ml Vial.Neb. INHALATION Q2H PRN PRN Dyspnea, wheezing Aspirin 81 mg 01/04/25 08:00 01/04/25 08:38 Aspirin 81 Mg Tab.Chew PO 81 mg BREAKFAST LUIS A Administration Atorvastatin Calcium 40 mg 01/03/25 22:00 01/03/25 22:25 Atorvastatin Calcium 40 Mg Tablet PO 40 mg QHS LUIS A Administration Celecoxib 200 mg 01/03/25 22:00 01/04/25 08:38 Celecoxib 200 Mg Capsule PO 200 mg BID LUIS A Administration Clopidogrel Bisulfate 75 mg 01/04/25 14:50 Clopidogrel Bisulfate 75 Mg Tablet PO DAILY LUIS A Enoxaparin Sodium 40 mg 01/04/25 10:00 01/04/25 08:38 Enoxaparin 40 Mg/0.4 Ml Syringe SC 40 mg DAILY LUIS A Administration Glucagon 1 mg 01/03/25 21:09 Glucagon 1 Mg/Ml Syringe IM X1 PRN HYPOGLYCEMIA Protocol Guaifenesin 20 ml 01/03/25 21:09 Guaifenesin 10 Ml Udc (200mg/10ml) PO Q4H PRN PRN COUGH Hydralazine HCl 5 mg 01/03/25 21:09 Hydralazine 20 Mg/Ml Vial IV 01/04/25 21:09 Q30M PRN maintain BP parameters with HR <60 Dextrose 250 mls @ 0 mls/hr 01/03/25 21:09 Dextrose 10%-Water IV .Q0M PRN HYPOGLYCEMIA Protocol As Directed Sodium Chloride 100 mls @ 15 mls/hr 01/03/25 21:23 IV .Q6H40M PRN Saline Flush Sodium Chloride 100 mls @ 15 mls/hr 01/03/25 21:23 IV .Q6H40M PRN Additional IVPB Infusion Insulin Glargine 60 unit 01/03/25 22:00 01/03/25 22:32 Insulin Glargine-Yfgn 100 Unit/Ml Pen SC 60 unit QHS LUIS A Administration Insulin Human Lispro 0 unit 01/03/25 22:00 01/04/25 11:34 Insulin Lispro 100 Unit/Ml Insuln.Pen SC Not Given ACHS LUIS A Protocol Labetalol HCl 10 - 20 mg 01/03/25 21:09 Labetalol 20mg/4ml Syringe IV 01/04/25 21:09 Q10M PRN PRN maintain BP parameters with HR >/=60 Lorazepam 0.5 - 1 mg 01/03/25 22:33 01/04/25 08:38 Lorazepam 0.5 Mg Tablet PO 0.5 mg X1 PRN Administration Anxiety with MRI Melatonin 3 mg 01/03/25 21:09 Melatonin 3 Mg Tablet PO QHS PRN PRN INSOMNIA Ondansetron HCl 4 mg 01/03/25 21:09 Ondansetron 4 Mg/2 Ml Vial IV Q8H PRN PRN NAUSEA/VOMITING Pramipexole Dihydrochloride 1 mg 01/03/25 22:00 01/03/25 22:24 Pramipexole Di-Hcl 1 Mg Tablet PO 1 mg QHS LUIS A Administration Prochlorperazine Edisylate 5 mg 01/03/25 21:09 Prochlorperazine 10 Mg/2 Ml Vial IV Q4H PRN PRN Breakthrough Nausea/Vomiting Senna/Docusate Sodium 2 tablet 01/03/25 21:09 Senna/Docusate Sodium 1 Tablet PO BID PRN PRN Constipation Sodium Chloride 10 - 40 ml 01/03/25 21:23 0.9% Saline Lock 10 Ml Syringe IV UD PRN SALINE FLUSH Temazepam 15 mg 01/03/25 22:00 01/03/25 22:24 Temazepam 15 Mg Capsule PO 15 mg QHS LUIS A Administration Trazodone HCl 100 mg 01/03/25 22:00 01/03/25 22:24 Trazodone 100 Mg Tablet PO 100 mg QHS LUIS A Administration
[2025-01-04] MEDS: Clopidogrel Bisulfate 75 MG Tablet PO (17:46)
== END 2025-01-04 18:00 | disposition home or self-care (01) ==
LOC: ED 18:21 → PCU 20:22
PROVIDERS: Admitting Provider Family Medicine; Emergency Provider Emergency Medicine; PCP Family Medicine; Referring Provider Family Medicine; Visit Provider Student in an Organized Health Care Education/Training Program
DX: R42 Dizziness and giddiness (principal); E66.01 Morbid (severe) obesity due to excess calories; Z68.41 Body mass index [BMI] 40.0-44.9, adult; E11.22 Type 2 diabetes mellitus with diabetic chronic kidney disease; Z79.4 Long term (current) use of insulin; E11.65 Type 2 diabetes mellitus with hyperglycemia; Z79.02 Long term (current) use of antithrombotics/antiplatelets; N18.2 Chronic kidney disease, stage 2 (mild); F41.9 Anxiety disorder, unspecified; Z79.82 Long term (current) use of aspirin; E78.5 Hyperlipidemia, unspecified; F32.A Depression, unspecified; Z79.84 Long term (current) use of oral hypoglycemic drugs; I12.9 Hypertensive chronic kidney disease with stage 1 through stage 4 chronic kidney disease, or unspecified chronic kidney disease; I65.02 Occlusion and stenosis of left vertebral artery; Z79.899 Other long term (current) drug therapy; E87.6 Hypokalemia; G25.81 Restless legs syndrome
CPT/HCPCS: 36415; 70450; 70496; 70498; 70551; 71045; 80048; 80053; 80061; 82962; 83036; 83735; 84443; 84484; 85025; 85610; 85730; 92610; 93005; 93306; 96361; 96372; 96374; 96375; 97162; 97166; 99221; 99285; Q9957; Q9967; A4216; C8929; G0378; J2405

== ENCOUNTER 2025-01-06 04:54 | Emergency (ER) | payer OTHER, SELFPAY ==
[2025-01-06 04:55] VITALS: BP 131/78; PULSE 88; RESP 16; TEMP 36.6; O2SAT 97; BMI 42.0
--- NOTE | 2025-01-06 05:07 | EKG12_ITS ---
Test Reason : DIZZINESS Blood Pressure : */* mmHG Vent. Rate : 81 BPM Atrial Rate : 81 BPM P-R Int : 228 ms QRS Dur : 98 ms QT Int : 378 ms P-R-T Axes : 40 15 25 degrees QTcB Int : 439 ms Sinus rhythm with 1st degree A-V block Otherwise normal ECG Confirmed by TIFFANI CHAVEZ, DREW ([id number]), scientific publications editor PARUL MANN ([id number]) on 01/08/2025 7:23:18 AM Referred By: Confirmed By: DREW NIXON MD
--- NOTE | 2025-01-06 05:07 | CT_ITS ---
PROCEDURE: CT ANGIOGRAM HEAD AND NECK WITH CONTRAST REASON FOR EXAM: DIAGNOSED WITH LEFT CEREBELLAR CVA ON 01/04/2025. PATIENT EXPERIENCED VERTIGO WHEN GETTING UP FROM COUCH. ROOM WAS SPINNING. TECHNIQUE: CTA imaging of the head and neck from the aortic arch to the skull vertex with intravenous contrast. 3D reconstructions. Contiguous axial scans of 1.25 mm slice thicknesses. Sagittal and coronal reconstruction images were obtained. One or more dose reduction techniques were used (e.g., automated exposure control, adjustment of mA and/or kv according to patient size, use of iterative reconstruction technique). CONTRAST: ISOVUE 370, 99 ML. COMPARISON: CT BRAIN DATED 01/04/2025. FINDINGS: Aortic Arch: Normal size and branching pattern. No significant atherosclerotic plaque. Brachiocephalic and Subclavians: Unremarkable RIGHT Carotid: Right CCA: Unremarkable. Right ICA: Unremarkable. Right ECA: Unremarkable. LEFT Carotid: Left CCA: Unremarkable. Left ICA: Unremarkable. Left ECA: Unremarkable. Vertebrals: Codominant. Arise from the subclavians. Both vertebrals form the basilar. RIGHT Vertebral: Unremarkable. LEFT Vertebral: Non-opacification of the proximal vertebral artery is redemonstrated. No intracranial aneurysms or large vascular malformations are identified. Anterior cerebral arteries: Unremarkable. Middle cerebral arteries: Unremarkable. Basilar artery: Unremarkable. Posterior cerebral arteries: Unremarkable. Other major branches of the posterior circulation: Unremarkable. Major venous structures: Unremarkable. Other findings: No lymphadenopathy. Lung apices are clear. Bones are unremarkable. CT/CTA Head AND Neck W/ Contrast IMPRESSION: 1. No significant interval change since the previous study of 01/03/2025. 2. Non opacification of the proximal left vertebral artery. Reading Location: [facility]
--- NOTE | 2025-01-06 05:09 | EX.ED.DYSGE1 ---
HPI History of Present Illness Chief Complaint: Dizziness Informant: patient and spouse/S.O. Onset/Context/Timing Onset: Today Context: Sudden Onset and - (Lasted less than a minute. Around 4 AM. Now resolved.) Current Severity: Gone Maximum Severity: Moderate Narrative Narrative: 64-year-old male history of hypertension and diabetes. Was seen here earlier this week. Diagnosed with a left cerebellar infarct. Was admitted and had MRI. He was just discharged on Friday. Said today around 4 AM this morning he had sudden onset of dizziness that lasted less than a minute. Denies any headache. He is currently on Plavix and aspirin. Denies any fall or trauma. Currently his symptoms have resolved. Prior similar symptoms: Yes Recent Illness/Hospitalization: Yes PFSH PFS Medical History Wears glasses Wears dentures Insulin dependent diabetes mellitus History of renal disease Arthritis Episodic ataxia Dietary restriction Non-smoker Cardiology follow-up encounter History of stress test Hx of fracture of leg Family history of colon cancer RLS (restless legs syndrome) Insomnia Hyperlipidemia Hx of adenomatous colonic polyps HTN (hypertension) Home Medications ?Medication ?Instructions ?Recorded ?Last Taken ?Type insulin aspar prt-insulin aspart 15 - 20 unit subcut BID DIABETES 03/24/18 01/03/25 History 100 unit/mL (70-30) subcutaneous soln (Novolog Mix 70-30 U-100 Insuln) atorvastatin 40 mg tablet 40 mg PO QHS CHOLESTEROL 10/30/18 01/02/25 History benazepril 40 mg tablet (Lotensin) 40 mg PO DAILY BP 10/30/18 01/03/25 History insulin degludec 100 unit/mL (3 60 unit SQ QHS DIABETES 10/30/18 01/02/25 History mL) subcutaneous pen (Tresiba FlexTouch U-100 insulin) hydrochlorothiazide 12.5 mg tablet 12.5 mg PO DAILY diuretic 07/10/23 01/03/25 History ropinirole 2 mg tablet 2 mg PO QHS restless legs 07/10/23 01/02/25 History temazepam 15 mg capsule 15 mg PO QHS sleep 07/10/23 01/02/25 History trazodone 100 mg tablet 100 mg PO QHS sleep 07/10/23 01/02/25 History metformin 500 mg tablet 500 mg PO DAILY diabetes 01/03/25 01/03/25 History aspirin 81 mg chewable tablet 81 mg PO BREAKFAST #30 tabs 01/04/25 Unknown Rx clopidogrel 75 mg tablet 75 mg PO DAILY #21 tabs 01/04/25 Unknown Rx Allergy/AdvReac Type Severity Reaction Status Date / Time acetaminophen (From Percocet) AdvReac Panic Verified 01/06/25 05:01 attack hydrocodone (From Vicodin) AdvReac Panic Verified 01/06/25 05:01 attack oxycodone (From Percocet) AdvReac Panic Verified 01/06/25 05:01 attack Family History Grandmother Colon cancer Brother Colon cancer Mother Diabetes CVA (cerebral vascular accident) Hypertension Father Diabetes Pancreatic cancer Surgical History History of excision of lesion History of removal of retained hardware Hx of umbilical hernia repair Hx of appendectomy Hx of total knee arthroplasty Hx of total hip arthroplasty Hx of colonoscopy Social History household members: spouse current occupational status: employed Smoking Status: Never smoker alcohol intake: never substance use type: does not use ROS ROS ED ROS Narrative Sudden onset dizziness resolved. Constitutional Constitutional ED: Denies chills or fever(s) Eyes Eyes: Denies blurry vision ENT ENT ED: Denies ear pain Cardiovascular Cardiovascular: Denies chest pain Respiratory/Chest Respiratory/Chest: Denies cough Gastrointestinal Gastrointestinal: Denies abdominal pain Genitourinary Genitourinary ED: Denies dysuria Musculoskeletal Musculoskeletal: Denies arthralgias Integumentary Denies abscess Neurologic Neurologic: Denies headache(s), paresthesias or weakness Psychiatric Psychiatric: Denies anxiety Endocrine Endocrinology: Denies cold intolerance Hematologic/Lymphatic Hematologic/Lymphatic: Reports none Allergic/Immunologic Allergic/Immunologic ED: Denies mouth swelling, tongue swelling or urticaria EXAM Physical Exam Narrative Exam Narrative: Well-appearing 64-year-old male. Vital signs are stable afebrile. Initial blood pressure 131/78. He does not look septic or toxic is in no distress. at bedside. H EENT exam pupils round reactive light. Extra motions are intact. No facial droop. Normal speech. Tongue midline. No signs of trauma. Neck nontender. No lymphadenopathy. Lungs clear to auscultation bilaterally. Heart regular rhythm rate about 85 no murmur. Chest wall ribs nontender. Abdomen soft nontender. Moving all 4 extremities. 5 out of 5 choke setter strength bilaterally. Equal and symmetrical. Dorsi plantarflexion intact. Equal and symmetrical. Able to lift either upper or lower extremity with no drift. Neurologically is awake and alert. Answer questions following commands. Lying in bed he has a normal neurologic exam. Normal speech. No facial droop. NIH is 0. Const Vital Signs: 01/06/25 04:55 Temperature 97.9 F Temperature Source Oral Pulse Rate 88 Respiratory Rate 16 Blood Pressure 131/78 H Blood Pressure Mean 95 Pulse Ox 97 Oxygen Delivery Method Room Air Positive well nourished and well developed; Negative for cachectic, contractures or unkempt General Appearance ED: well developed and NAD; Negative for unkempt, cachectic, contractures, cyanotic, diaphoretic or pallor Nutritional Appearance: Negative for cachectic HEENT Reports moist mucous membranes Eyes PERRL and EOMs intact bilaterally General Eye ED: Negative for pale conjunctiva or scleral icterus Neck no lymphadenopathy, supple and no JVD General: Negative for tenderness Lymph Lymphatic: Negative for other Chest Wall inspection of chest normal and palpation of chest normal Resp normal respiratory effort and clear to auscultation bilaterally Cardio regular rate, regular rhythm, S1 normal heart sound, S2 normal heart sound and no murmurs GI normal to inspection, nondistended, normoactive bowel sounds, non-tender, non-distended and no masses Palpation: soft; Negative for tender, guarding, mass or rebound tenderness present Back/Spine no CVA tenderness General Back: Negative for CVA tenderness Cervical Spine: Negative for cervical spine tenderness Thoracic Spine / Upper Back: Negative for thoracic spinal tenderness Lumbar Spine / Lower Back: Negative for lumbar spinal tenderness Extremity normal to inspection General Extremety ED: Negative for edema or tenderness General Extremity: Negative for edema Neuro oriented x3 and CN's II-XII intact bilaterally Sensorium / Orientation: alert; Negative for orientation impaired, lethargic or stuporous Motor Exam: strength 5/5 throughout; Negative for general weakness or strength abnormal Psych mental status grossly normal Appearance: Negative for unkempt Mood & Affect: Negative for depressed, anxious or tearful Skin no rashes or lesions noted, no wounds and skin turgor normal General Skin Exam: Negative for jaundice or pallor Lesions: No lesion noted Rashes: No rashes noted Trauma: Negative for abrasion Wounds: Negative for wounds noted MDM MDM MDM Narrative Medical decision making narrative: 64-year-old male with dizziness resolved. Recent left cerebellar infarct. Started on Plavix and aspirin recently. I reviewed his workup from earlier this week. L have repeat labs and a CTA of his head neck again. Currently his NIH lying in bed is normal. He has a normal neurologic exam. He has negative Hallpike maneuver. No reproducible dizziness at this time. History & Record Review Discussion w/independent historian: Patient and Family Additional record(s) reviewed:: Prior inpatient record, Prior outpatient record, Prior ED visit and Prior labs Lab Data Attestation: I reviewed the patient's lab results. Lab results narrative: CBC shows a white count of 7. H&H 16 and 49. Platelets 147. Labs: Laboratory Results - last 24 hr 01/06/25 05:05 WBC 7.0 RBC 5.39 Hgb 16.3 Hct 49.3 MCV 91.5 MCH 30.2 MCHC 33.1 RDW Std Deviation 43.2 RDW Coeff of Ramone 12.8 Plt Count 147 L MPV 9.8 Immature Gran % (Auto) 0.400 Neut % (Auto) 70.3 H Lymph % (Auto) 17.1 L [place] % (Auto) 10.3 H Eos % (Auto) 1.3 Baso % (Auto) 0.6 Absolute Neuts (auto) 4.9 Absolute Lymphs (auto) 1.19 Nucleated RBC % 0 Sodium 141 Potassium 4.2 Chloride 105 Carbon Dioxide 30.0 Anion Gap 6 BUN 24 H Creatinine 1.75 H Estim Creat Clear Calc 61.84 Est GFR (MDRD) Af Amer 51 L Est GFR (MDRD) Non-Af 42 L BUN/Creatinine Ratio 13.7 Glucose 168 H Calcium 9.7 Discharge Plan Triage Chief Complaint: Dizziness ED Provider: Asif Salgado Dx/Rx/DC Orders Prescriptions: No Action ropinirole 2 mg tablet 2 mg PO QHS Rx Instructions: administer 1-3 hours before bedtime temazepam 15 mg capsule 15 mg PO QHS trazodone 100 mg tablet 100 mg PO QHS hydrochlorothiazide 12.5 mg tablet 12.5 mg PO DAILY insulin asp prt-insulin aspart [Novolog Mix 70-30 U-100 Insuln] 100 UNIT/ML solution 15 - 20 unit subcut BID Patient Comments: SLIDING SCALE atorvastatin 40 MG tablet 40 mg PO QHS benazepril [Lotensin] 40 MG tablet 40 mg PO DAILY insulin degludec [Tresiba FlexTouch U-100] 100 UNIT/ML insulin pen 60 unit SQ QHS metformin 500 mg tablet 500 mg PO DAILY clopidogrel 75 mg Tablet 75 mg PO DAILY Qty: 21 0RF aspirin 81 mg Tablet,Chewable 81 mg PO BREAKFAST Qty: 30 2RF Primary Care Provider: Willam Rosales Referrals: Willam Rosales MD [Primary Care Provider] - Print Language: Frisian
[2025-01-06 05:18] LABS: Absolute Lymphocyte Count 1.19 X10^3/uL (0.83-4.51); Absolute Neutrophil Count 4.9 X10^3/uL (2.0-7.7); Basophil# 0.04 X10^3/uL; Basophil% 0.6 % (0-1); Eosinophil# 0.09 X10^3/uL; Eosinophils% 1.3 % (0-5); Hematocrit 49.3 % (40-54); Hemoglobin 16.3 g/dL (13.0-16.5); Lymphocyte # 1.19 X10^3/ul (0.83-4.51); Lymphocyte % 17.1 % (19-41); Mean Corp Hgb Conc 33.1 g/dL (32-36); Mean Corpuscular Hgb 30.2 pg (27.0-32.0); Mean Corpuscular Volume 91.5 fL (80-94); Mean Platelet Vol. 9.8 fl (6.2-12.0); Monocyte# 0.72 X10^3/uL; Monocyte% 10.3 % (0-10); NRBC Flagged by Analyzer 0 % (0-5); Neutrophil # 4.89 X10^3/uL (2.7-7.7); Neutrophil % 70.3 % (47-70); Platelet Count 147 K/mm3 (150-450); RBC Distribution Width CV 12.8 % (11.6-14.6); RBC Distribution Width SD 43.2 fl (35.1-43.9); Red Blood Count 5.39 M/mm3 (4.6-6.2)
[2025-01-06 05:46] LABS: Anion Gap 6 (5-15); BUN 24 mg/dL (7-18); BUN/Creat Ratio 13.7 RATIO (10-20); Calcium,Total 9.7 mg/dL (8.5-10.1); Chloride 105 mmol/L (98-107); Creatinine, Serum 1.75 mg/dL (0.70-1.30); EST Glomerular Filtration Rate 42 mL/min (>60); Est Glom Filt Rate - Afr Amer 51 mL/min (>60); Estimated Creatinine Clearance 61.84 ml/min; Glucose 168 mg/dL (74-106); Potassium 4.2 mmol/L (3.5-5.1); Sodium Level 141 mmol/L (136-145)
[2025-01-06 06:08] VITALS: BP 134/67; PULSE 81; RESP 18; O2SAT 99
[2025-01-06 06:38] VITALS: BP 118/74; PULSE 82; RESP 17; TEMP 36.8; O2SAT 99
== END 2025-01-06 06:39 | disposition home or self-care (01) ==
PROVIDERS: Emergency Provider Emergency Medicine; PCP Family Medicine; Visit Provider Emergency Medicine
DX: R42 Dizziness and giddiness (principal); E11.9 Type 2 diabetes mellitus without complications; Z79.4 Long term (current) use of insulin; I10 Essential (primary) hypertension; E78.5 Hyperlipidemia, unspecified; Z79.02 Long term (current) use of antithrombotics/antiplatelets; Z79.82 Long term (current) use of aspirin; Z79.899 Other long term (current) drug therapy; Z79.84 Long term (current) use of oral hypoglycemic drugs
CPT/HCPCS: 70496; 70498; 80048; 85025; 93005; 99283; Q9967; A4216

== ENCOUNTER 2025-01-07 22:36 | Inpatient (IN) | payer OTHER, SELFPAY ==
[2025-01-07 22:37] VITALS: BP 145/70; PULSE 84; RESP 21; TEMP 36.6; O2SAT 99; BMI 41.8
[2025-01-07 22:44] VITALS: BMI 41.8
--- NOTE | 2025-01-07 22:48 | CT_ITS ---
PROCEDURE: STROKE CTA HEAD AND NECK W/CON REASON FOR EXAM: Stroke. TECHNIQUE: CTA imaging of the head and neck from the aortic arch to the skull vertex with intravenous contrast. 3D reconstructions. COMPARISON: 01/06/2025. FINDINGS: Aortic Arch: Normal size and branching pattern. No significant atherosclerotic plaque. Brachiocephalic and Subclavians: Unremarkable RIGHT Carotid: Right CCA: Unremarkable. Right ICA: Unremarkable. Right ECA: Unremarkable. LEFT Carotid: Left CCA: Unremarkable. Left ICA: Unremarkable. Left ECA: Unremarkable. Vertebrals: Codominant. Arise from the subclavians. Both vertebrals form the basilar. RIGHT Vertebral: Unremarkable. LEFT Vertebral: Non-opacification of the proximal vertebral artery is redemonstrated. No intracranial aneurysms or large vascular malformations are identified. Anterior cerebral arteries: Unremarkable. Middle cerebral arteries: Unremarkable. Basilar artery: Unremarkable. Posterior cerebral arteries: Unremarkable. Other major branches of the posterior circulation: Unremarkable. Major venous structures: Unremarkable. Other findings: No lymphadenopathy. Lung apices are clear. Bones are unremarkable. CT/STROKE CTA Head AND Neck W/Con IMPRESSION: No interval change. Non-opacification of the proximal left vertebral artery. One or more dose reduction techniques were used (e.g., Automated exposure contr ol, adjustment of the mA and/or kV according to patient size, use of iterative reconstruction technique). Reading Location: [id number]
--- NOTE | 2025-01-07 22:48 | EKG12_ITS ---
Test Reason : STROKE Blood Pressure : */* mmHG Vent. Rate : 85 BPM Atrial Rate : 85 BPM P-R Int : 232 ms QRS Dur : 98 ms QT Int : 368 ms P-R-T Axes : 38 19 12 degrees QTcB Int : 437 ms Sinus rhythm with 1st degree A-V block Otherwise normal ECG Confirmed by DREW NIXON MD [id number]), editorial cartoonist GIOVANNI MEZA ([id number]) on 01/10/2025 7:28:47 AM Referred By: YVROSE Confirmed By: DREW NIXON MD
--- NOTE | 2025-01-07 22:50 | CT_ITS ---
PROCEDURE: STROKE BRAIN/HEAD WITHOUT CONT REASON FOR EXAM: Stroke. TECHNIQUE: CT of the head without contrast was performed. COMPARISON: 01/03/2025 CT. 01/04/2025 MRI. FINDINGS: The ventricles are normal in size and midline in position. No evidence of new acute hemorrhage or infarction. Mild hypodensity in the left cerebellum compatible with an evolving known infarction. No extra- axial blood or fluid collections. The paranasal sinuses are clear. The calvarial vault and skull base are intact. CT/STROKE Brain/Head without Cont IMPRESSION: No new acute intracranial abnormality. Mild hypodensity in the left cerebellum is likely due to evolving prior infarct ion. No evidence of hemorrhage. Critical results were communicated to Dr. Banks. One or more dose reduction techniques were used (e.g., Automated exposure contr ol, adjustment of the mA and/or kV according to patient size, use of iterative reconstruction technique). Reading Location: [id number]
[2025-01-07 22:54] VITALS: BP 131/62; PULSE 85; RESP 18; O2SAT 97
[2025-01-07 23:00] VITALS: BP 114/67; PULSE 91; RESP 18; O2SAT 97
[2025-01-07 23:02] LABS: Absolute Lymphocyte Count 1.78 X10^3/uL (0.83-4.51); Basophil# 0.04 X10^3/uL; Basophil% 0.5 % (0-1); Eosinophil# 0.08 X10^3/uL; Hemoglobin 15.7 g/dL (13.0-16.5); Lymphocyte # 1.78 X10^3/ul (0.83-4.51); Lymphocyte % 22.9 % (19-41); Mean Corp Hgb Conc 34.1 g/dL (32-36); Mean Corpuscular Hgb 30.7 pg (27.0-32.0); Mean Corpuscular Volume 89.8 fL (80-94); Monocyte# 0.83 X10^3/uL; Monocyte% 10.7 % (0-10); NRBC Flagged by Analyzer 0 % (0-5); Neutrophil % 64.5 % (47-70); Platelet Count 176 K/mm3 (150-450); RBC Distribution Width CV 12.9 % (11.6-14.6); RBC Distribution Width SD 42.3 fl (35.1-43.9); Red Blood Count 5.12 M/mm3 (4.6-6.2); White Blood Count 7.8 K/mm3 (4.4-11.0)
[2025-01-07] MEDS: 0.9% Normal Saline (1000mL) 1,000 ML 999 ML IV (23:13)
[2025-01-07] MEDS: diazePAM 5 MG Tablet PO (23:14)
[2025-01-07 23:16] LABS: Prothrombin Time (Protime)PT. 13.4 SECONDS (11.7-14.9)
[2025-01-07 23:17] LABS: Partial Thromboplast Time 24.3 Seconds (24.1-36.2)
[2025-01-07 23:20] LABS: Anion Gap 8 (5-15); BUN 29 mg/dL (7-18); BUN/Creat Ratio 14.2 RATIO (10-20); Calcium,Total 9.4 mg/dL (8.5-10.1); Chloride 103 mmol/L (98-107); Creatinine, Serum 2.04 mg/dL (0.70-1.30); EST Glomerular Filtration Rate 35 mL/min (>60); Est Glom Filt Rate - Afr Amer 43 mL/min (>60); Estimated Creatinine Clearance 52.88 ml/min; Glucose 188 mg/dL (74-106); Potassium 3.9 mmol/L (3.5-5.1); Sodium Level 139 mmol/L (136-145)
[2025-01-07 23:30] VITALS: BP 122/52; PULSE 89; RESP 18; O2SAT 96
--- NOTE | 2025-01-07 23:46 | PCM.HP.STD ---
HPI - General General Date of Admission: 01/07/25 Date of Service: 01/07/25 Chief Complaint: Recurrent vertigo, N/V HPI Narrative The patient is a 64-year-old male w/ PMHx: CKD stage III unclear subtype per GFR trending, HTN, HLD, RLS, IDDM, Morbid obesity, IDDM, Chronic insomnia/? Anxiety/Depression who presents to the [facility] ED on 01/07/2025 with history of last known well at approximately 2100 with following this while attempting to get up off the couch and turning his head to the right onset of significant vertiginous symptoms with associated nausea and bouts of emesis with no other specific neurological symptoms but more severe prompting ED evaluation with resolution in the ED following Valium administration. In the ED per ED physician patient did have some recurrent symptoms with Otis Hallpike maneuvering. NIH stroke scale assessments per ED physician 0. Workup in the ED included T98, heart rate 84, BP 145/70, respiratory rate 21, 99% on room air with most recent repeat vitals heart rate 98, BP 104/73, respiratory rate 18, 94% on room air, CBC with WBC 7.8, he 1 15.7, platelet 176 without marked shift, unremarkable coags, BMP with BUN/creatinine 29/2.04, GFR 35, glucose 28, magnesium 2.0, CTA head and neck with no interval changes with non-opacification of the proximal left vertebral artery, CT of the brain with no new acute intracranial abnormality, mild hypodensity in the left cerebellum secondary to evolving prior infarction with no evidence of any hemorrhage, EKG with sinus rhythm with no acute evidence of ischemia. Neurology was consulted with stroke alert with NIH stroke assessment 0. They recommended repeat MRI of the head to be cautious. In the ED patient ministered 1 L normal saline as well as Valium 5 mg p.o. x 1. [facility] Medical History Wears glasses Wears dentures Insulin dependent diabetes mellitus History of renal disease Arthritis Episodic ataxia Dietary restriction Non-smoker Cardiology follow-up encounter History of stress test Hx of fracture of leg Family history of colon cancer RLS (restless legs syndrome) Insomnia Hyperlipidemia Hx of adenomatous colonic polyps HTN (hypertension) Home Medications ?Medication ?Instructions ?Recorded ?Last Taken ?Type insulin aspar prt-insulin aspart 15 - 20 unit subcut BID DIABETES 03/24/18 01/03/25 History 100 unit/mL (70-30) subcutaneous soln (Novolog Mix 70-30 U-100 Insuln) atorvastatin 40 mg tablet 40 mg PO QHS CHOLESTEROL 10/30/18 01/02/25 History benazepril 40 mg tablet (Lotensin) 40 mg PO DAILY BP 10/30/18 01/03/25 History insulin degludec 100 unit/mL (3 60 unit SQ QHS DIABETES 10/30/18 01/02/25 History mL) subcutaneous pen (Tresiba FlexTouch U-100 insulin) hydrochlorothiazide 12.5 mg tablet 12.5 mg PO DAILY diuretic 07/10/23 01/03/25 History ropinirole 2 mg tablet 2 mg PO QHS restless legs 07/10/23 01/02/25 History temazepam 15 mg capsule 15 mg PO QHS sleep 07/10/23 01/02/25 History trazodone 100 mg tablet 100 mg PO QHS sleep 07/10/23 01/02/25 History metformin 500 mg tablet 500 mg PO DAILY diabetes 01/03/25 01/03/25 History aspirin 81 mg chewable tablet 81 mg PO BREAKFAST #30 tabs 01/04/25 Unknown Rx clopidogrel 75 mg tablet 75 mg PO DAILY #21 tabs 01/04/25 Unknown Rx Allergy/AdvReac Type Severity Reaction Status Date / Time acetaminophen (From Percocet) AdvReac Panic Verified 01/07/25 22:37 attack hydrocodone (From Vicodin) AdvReac Panic Verified 01/07/25 22:37 attack oxycodone (From Percocet) AdvReac Panic Verified 01/07/25 22:37 attack Family History Grandmother Colon cancer Brother Colon cancer Mother Diabetes CVA (cerebral vascular accident) Hypertension Father Diabetes Pancreatic cancer Surgical History History of excision of lesion History of removal of retained hardware Hx of umbilical hernia repair Hx of appendectomy Hx of total knee arthroplasty Hx of total hip arthroplasty Hx of colonoscopy Social History household members: spouse current occupational status: employed Smoking Status: Never smoker alcohol intake: never substance use type: does not use ROS ROS Narrative Admission Review of Systems: CONSTITUTIONAL: No weight loss, fever, chills, + weakness or fatigue. HEENT: + Vertiginous symptoms, room spinning sensation. Eyes: No visual loss, blurred vision, double vision or yellow sclerae. Ears, Nose, Throat: No hearing loss, sneezing, congestion, runny nose or sore throat. SKIN: No rash or itching, lesions, wounds. CARDIOVASCULAR: No chest pain, chest pressure or chest discomfort, palpitations, edema, orthopnea, syncopal events. RESPIRATORY: No shortness of breath, cough or sputum, wheezing, hemoptysis. GASTROINTESTINAL: + anorexia, nausea, vomiting. No diarrhea, abdominal pain, melena, BRBPR. GENITOURINARY: No dysuria, frequency, urgency or retention. NEUROLOGICAL: + Vertiginous symptoms, room spinning sensation. No headache, paralysis, ataxia, numbness or tingling in the extremities, focal weakness, change in bowel or bladder control, seizure. MUSCULOSKELETAL: + muscle, back pain, joint pain or stiffness. HEMATOLOGIC: No anemia, bleeding or bruising. LYMPHATICS: No enlarged nodes. No history of splenectomy. PSYCHIATRIC: No history of depression or anxiety. ENDOCRINOLOGIC: No reports of sweating, cold or heat intolerance. No polyuria or polydipsia. ALLERGIES: No history of asthma, hives, eczema or rhinitis. Vital Signs Vital Signs Vital Signs: 01/07/25 22:37 01/07/25 22:54 01/07/25 23:00 Temperature 98 F Temperature Source Oral Pulse Rate 84 85 91 Respiratory Rate 21 H 18 18 Blood Pressure 145/70 H 131/62 H 114/67 Blood Pressure Mean 95 85 82 Pulse Ox 99 97 97 Oxygen Delivery Method Room Air Room Air Room Air 01/07/25 23:30 Temperature Temperature Source Pulse Rate 89 Respiratory Rate 18 Blood Pressure 122/52 H Blood Pressure Mean 75 Pulse Ox 96 Oxygen Delivery Method Room Air Weight Weight: 299 lb 13.259 oz Body Mass Index (BMI) 41.8 Physical Exam Narrative Physical Examination: General: Awake, alert, oriented x 3 and cooperative, seated upright in the ED bed, notes resolution of previous symptoms following recent Valium administration. Skin: Normal color, normal turgor, no icterus, no cyanosis except occasional stage ecchymoses, abrasion, notable bilateral lower extremity venous stasis skin changes. HEENT: AT/NC, EOMI, PERRLA, MMM, no carotid bruits or JVD noted; however thickened neck makes evaluation difficult. Lungs: Mildly diminished, greater bases, poor effort, no rales, ronchi or wheezing. Heart: Regular rate and rhythm; no gallop, rub audible. Abdomen: Soft, morbidly obese, NTTP, distant BS, difficult to discern distention and HSM given habitus. Extremities: No cyanosis, no clubbing, mild pedal to ankle not markedly pitting edema which is chronic, see skin. Neurological: Patient awake, alert, oriented as noted, cognitive function intact; pupils equally reactive to light and accommodation, cranial nerves grossly normal, moving all 4 extremities, no focal deficits, strength preserved, unable to reproduce any vertiginous symptoms, no evidence of nystagmus, FTN/HTS negative, sensation appropriate. Psychiatric: Affect appears fatigued otherwise normal, notes improved since resolution of vertigo, no acute evidence of depressive or anxiety feelings but on medications. Results Lab / Micro Data 01/07/25 22:40 01/07/25 22:40 Labs: Laboratory Results - last 24 hr 01/07/25 22:40: WBC 7.8, RBC 5.12, Hgb 15.7, Hct 46.0, MCV 89.8, MCH 30.7, MCHC 34.1, RDW Std Deviation 42.3, RDW Coeff of Ramone 12.9, Plt Count 176, MPV 10.0, Immature Gran % (Auto) 0.400, Neut % (Auto) 64.5, Lymph % (Auto) 22.9, [place] % (Auto) 10.7 H, Eos % (Auto) 1.0, Baso % (Auto) 0.5, Absolute Neuts (auto) 5.0, Absolute Lymphs (auto) 1.78, Nucleated RBC % 0, PT 13.4, INR 1.0, APTT 24.3, Sodium 139, Potassium 3.9, Chloride 103, Carbon Dioxide 28.0, Anion Gap 8, BUN 29 H, Creatinine 2.04 H, Estim Creat Clear Calc 52.88, Est GFR (MDRD) Af Amer 43 L, Est GFR (MDRD) Non-Af 35 L, BUN/Creatinine Ratio 14.2, Glucose 188 H, Calcium 9.4, Magnesium 2.0 Imaging Radiology Impression Brain CT 01/07/25 22:50 IMPRESSION: No new acute intracranial abnormality. Mild hypodensity in the left cerebellum is likely due to evolving prior infarction. No evidence of hemorrhage. Critical results were communicated to Dr. Banks. One or more dose reduction techniques were used (e.g., Automated exposure control, adjustment of the mA and/or kV according to patient size, use of iterative reconstruction technique). Reading Location: [facility] Assessment & Plan Assessment/Plan (1) Dizziness: PLAN: Plan The patient is a 64-year-old male w/ PMHx: CKD stage III unclear subtype per GFR trending, HTN, HLD, RLS, IDDM, Morbid obesity, IDDM, Chronic insomnia/? Anxiety/Depression who presents to the [facility] ED on 01/07/2025 with history of last known well at approximately 2100 with following this while attempting to get up off the couch and turning his head to the right onset of significant vertiginous symptoms with associated nausea and bouts of emesis with no other specific neurological symptoms but more severe prompting ED evaluation with resolution in the ED following Valium administration. #1. Recurrent Dizziness, vertigo w/ recent left cerebellum w/ non-opacification of the proximal left vertebral artery: Per Neurology recommendation, will admit to PCU, will obtain repeat MRI Brain, PT/OT/Speech/Nutrition evaluation per protocol. Will temporarily allow permissive HTN, maintain on asa/plavix, statin. Maintain on fall and aspiration precautions. Will continue neurology consultation. Will have as needed meclizine. #2. Chronic Kidney Disease Stage III per GFR trending, unclear subtype: Admission BUN/Cr 29/2.04, GFR 35, baseline renal function 1.6-2.2 recently, repeat BMP in AM. #3. Diabetes mellitus type II with hyperglycemia: Will hold oral home regimen, continue home insulin regimen, ADA diet, accu checks w/ ISS, nutrition consulted per stroke protocol. #4. Hypertension: Will maintain permissive hypertension given presentation with PRN agents per stroke protocol. #5. Anxiety and depression: Will continue home trazodone and temazepam regimen cautiously with hold for sedation and recommended that these be evaluated as both her sedate of medications taken in the evening and may benefit from alternate regimen. #6. Hyperlipidemia: Continue statin therapy. #7. Morbid Obesity: Weight loss and lifestyle changes encouraged, nutrition consulted. #8. Restless leg syndrome: We will continue patient home Requip regimen. #9. DVT prophylaxis: Lovenox. #10. CODE status: Patient HCPOA and living will are not in place but his would be his medical decision-maker if necessary. Full Code status. Charges/Coding Visit Charges Inpatient E&M: 70939 Init Hosp L2
--- NOTE | 2025-01-07 23:58 | EX.ED.DYSGE1 ---
HPI History of Present Illness Chief Complaint: Neuro S/Sx Informant: patient and spouse/S.O. Narrative Narrative: Patient is a 64-year-old male with past medical history of chronic kidney disease insulin-dependent diabetes hypertension and hyperlipidemia. He was seen on January 03 secondary to dizziness and at that time was admitted and MRI confirmed a left cerebellar infarct. He was discharged home after neurology consultation on aspirin and Plavix. He states he has been taking those medications as directed. He reports that he has had complete resolution of dizziness but that occasionally he will get a reoccurrence. He was seen in the ER Friday night into morning for repeat occurrence of dizziness and was discharged home. He states that the dizziness resolved completely but tonight at 928 dizziness reoccurred and he could not stand secondary to the dizziness and therefore he presents for evaluation [facility] Medical History Wears glasses Wears dentures Insulin dependent diabetes mellitus History of renal disease Arthritis Episodic ataxia Dietary restriction Non-smoker Cardiology follow-up encounter History of stress test Hx of fracture of leg Family history of colon cancer RLS (restless legs syndrome) Insomnia Hyperlipidemia Hx of adenomatous colonic polyps HTN (hypertension) Home Medications ?Medication ?Instructions ?Recorded ?Last Taken ?Type insulin aspar prt-insulin aspart 15 - 20 unit subcut BID DIABETES 03/24/18 01/03/25 History 100 unit/mL (70-30) subcutaneous soln (Novolog Mix 70-30 U-100 Insuln) atorvastatin 40 mg tablet 40 mg PO QHS CHOLESTEROL 10/30/18 01/02/25 History benazepril 40 mg tablet (Lotensin) 40 mg PO DAILY BP 10/30/18 01/03/25 History insulin degludec 100 unit/mL (3 60 unit SQ QHS DIABETES 10/30/18 01/02/25 History mL) subcutaneous pen (Tresiba FlexTouch U-100 insulin) hydrochlorothiazide 12.5 mg tablet 12.5 mg PO DAILY diuretic 07/10/23 01/03/25 History ropinirole 2 mg tablet 2 mg PO QHS restless legs 07/10/23 01/02/25 History temazepam 15 mg capsule 15 mg PO QHS sleep 07/10/23 01/02/25 History trazodone 100 mg tablet 100 mg PO QHS sleep 07/10/23 01/02/25 History metformin 500 mg tablet 500 mg PO DAILY diabetes 01/03/25 01/03/25 History aspirin 81 mg chewable tablet 81 mg PO BREAKFAST #30 tabs 01/04/25 Unknown Rx clopidogrel 75 mg tablet 75 mg PO DAILY #21 tabs 01/04/25 Unknown Rx Allergy/AdvReac Type Severity Reaction Status Date / Time acetaminophen (From Percocet) AdvReac Panic Verified 01/07/25 22:37 attack hydrocodone (From Vicodin) AdvReac Panic Verified 01/07/25 22:37 attack oxycodone (From Percocet) AdvReac Panic Verified 01/07/25 22:37 attack Family History Grandmother Colon cancer Brother Colon cancer Mother Diabetes CVA (cerebral vascular accident) Hypertension Father Diabetes Pancreatic cancer Surgical History History of excision of lesion History of removal of retained hardware Hx of umbilical hernia repair Hx of appendectomy Hx of total knee arthroplasty Hx of total hip arthroplasty Hx of colonoscopy Social History household members: spouse current occupational status: employed Smoking Status: Never smoker alcohol intake: never substance use type: does not use ROS ROS ED Constitutional Constitutional ED: Denies chills or fever(s) Eyes Eyes: Denies change in vision ENT ENT ED: Denies sore throat Cardiovascular Cardiovascular: Denies chest pain, palpitations or racing heartbeat Respiratory/Chest Respiratory/Chest: Denies cough or dyspnea Gastrointestinal Gastrointestinal: Reports nausea; Denies abdominal pain, diarrhea or vomiting Genitourinary Genitourinary ED: Denies dysuria Musculoskeletal Musculoskeletal: Denies myalgias Integumentary Denies rash Neurologic Neurologic: Reports other Details: Positive dizziness ; Denies headache(s), paresthesias or weakness Hematologic/Lymphatic Hematologic/Lymphatic: Reports easy bleeding and easy bruising EXAM Physical Exam Const Vital Signs: 01/07/25 22:37 01/07/25 22:54 01/07/25 23:00 Temperature 98 F Temperature Source Oral Pulse Rate 84 85 91 Respiratory Rate 21 H 18 18 Blood Pressure 145/70 H 131/62 H 114/67 Blood Pressure Mean 95 85 82 Pulse Ox 99 97 97 Oxygen Delivery Method Room Air Room Air Room Air 01/07/25 23:30 Temperature Temperature Source Pulse Rate 89 Respiratory Rate 18 Blood Pressure 122/52 H Blood Pressure Mean 75 Pulse Ox 96 Oxygen Delivery Method Room Air Positive well nourished, well developed and obese General Appearance ED: well developed; Negative for pallor Nutritional Appearance: obese HEENT Reports TM's clear HEENT Narrative: Normocephalic atraumatic Tympanic Membrane ED: Yes TM's clear Eyes PERRL and EOMs intact bilaterally General Eye ED: Negative for scleral icterus Neck supple Resp normal respiratory effort and clear to auscultation bilaterally Cardio regular rate and regular rhythm Rate: other Other Details: Heart is regular rate and rhythm Radial and carotid pulses are equal and symmetric GI normal to inspection, nondistended, normoactive bowel sounds, non-tender, non-distended and no masses GI Narrative: No voluntary guarding or rigidity or pulsatile mass Auscultation: normoactive bowel sounds Palpation: soft Extremity normal to inspection Neuro oriented x3, CN's II-XII intact bilaterally and no sensory deficits noted Neuro Narrative: GCS of 15 Cranial nerves II through XII are grossly intact without focal neurologic deficit No pronator drift no dysmetria no truncal ataxia There is mild horizontal nystagmus noted and positive Hallpike Alexandru exam NIH of 0 Sensorium / Orientation: alert Motor Exam: strength 5/5 throughout Psych Mood & Affect: anxious Skin no rashes or lesions noted General Skin Exam: Negative for jaundice or pallor MDM MDM MDM Narrative Medical decision making narrative: Patient arrived to the ER with stable vitals. He reported onset of dizziness at 920 which she described as a sense of motion. Physical exam is most consistent with peripheral vertigo as he has a positive Hallpike Dickerson exam and horizontal nystagmus. However chart review reveals that on January 03 and MRI confirmed a left cerebellar infarct. Therefore with known recent infarct I did elect to activate a stroke alert for his new onset of symptoms. CT revealed no acute bleed and CTA revealed no LVO or significant stenosis. However even though he is within the 4-hour timeframe as he had a recent stroke he does not qualify for TNK. He was evaluated by neurology from [facility] and they agree with this. However they report that with his symptoms reoccurring and the only previous imaging modality that showed the stroke was MRI that he should be kept overnight for repeat MRI to in sure there is no evolving stroke. Therefore the hospitalist was contacted and agreed accept the patient at this time. He was given 5 mg of oral Valium secondary to his dizziness and had resolution of his symptoms. Workup also does not reveal acute blood loss anemia or clinically significant electrolyte abnormality. It does show chronic kidney disease but chart review reveals this is at his baseline and is chronic per patient. History & Record Review Discussion w/independent historian: Patient and Significant other Lab Data Attestation: I reviewed the patient's lab results. Labs: Laboratory Results - last 24 hr 01/07/25 22:40 WBC 7.8 RBC 5.12 Hgb 15.7 Hct 46.0 MCV 89.8 MCH 30.7 MCHC 34.1 RDW Std Deviation 42.3 RDW Coeff of Ramone 12.9 Plt Count 176 MPV 10.0 Immature Gran % (Auto) 0.400 Neut % (Auto) 64.5 Lymph % (Auto) 22.9 Bailey % (Auto) 10.7 H Eos % (Auto) 1.0 Baso % (Auto) 0.5 Absolute Neuts (auto) 5.0 Absolute Lymphs (auto) 1.78 Nucleated RBC % 0 PT 13.4 INR 1.0 APTT 24.3 Sodium 139 Potassium 3.9 Chloride 103 Carbon Dioxide 28.0 Anion Gap 8 BUN 29 H Creatinine 2.04 H Estim Creat Clear Calc 52.88 Est GFR (MDRD) Af Amer 43 L Est GFR (MDRD) Non-Af 35 L BUN/Creatinine Ratio 14.2 Glucose 188 H Calcium 9.4 Magnesium 2.0 Radiography Diagnostic Testing: Clinical Impression(s) from Imaging Studies Head/Neck CTA 01/07/25 22:48 IMPRESSION: No interval change. Non-opacification of the proximal left vertebral artery. One or more dose reduction techniques were used (e.g., Automated exposure control, adjustment of the mA and/or kV according to patient size, use of iterative reconstruction technique). Reading Location: [facility] Brain CT 01/07/25 22:50 IMPRESSION: No new acute intracranial abnormality. Mild hypodensity in the left cerebellum is likely due to evolving prior infarction. No evidence of hemorrhage. Critical results were communicated to Dr. Banks. One or more dose reduction techniques were used (e.g., Automated exposure control, adjustment of the mA and/or kV according to patient size, use of iterative reconstruction technique). Reading Location: [id number] Management Discussion w/another healthcare provider: Hospitalist, Duty Manager and Radiologist Discharge Plan Dx/Rx/DC Orders Clinical Impression: Cerebellar infarct, CKD (chronic kidney disease), Hypertension, Hyperlipidemia, Insulin dependent diabetes mellitus Disposition Disposition: Acute Care Hospital [facility]
[2025-01-08] VITALS (10 sets, daily range): BP systolic 104–148; BP diastolic 62–81; PULSE 73–98; RESP 16–18; TEMP 36.2–36.7; O2SAT 94–99; BMI 41.1
--- NOTE | 2025-01-08 00:49 | MRI_ITS ---
PROCEDURE: MRI brain without IV contrast REASON FOR EXAM: Vertigo, CVA TECHNIQUE: Multisequence multiplanar MR images of the brain were obtained without the administration of intravenous contrast. COMPARISON: 01/07/2025 FINDINGS: Small area of diffusion restriction along the posterior paramedian left cerebellum consistent with acute/subacute ischemia. Corresponding hyperintense FLAIR signal at this location. No other diffusion restriction. No other parenchymal signal abnormalities. No evidence of acute intracranial hemorrhage, midline shift or mass effect. Cerebral volume is maintained. No hydrocephalus. Moderate fluid in the right mastoid air cells. Mild scattered paranasal sinus mucosal thickening. Globes are intact. MRI/Brain without Contrast IMPRESSION: 1. Small acute/subacute ischemic foci in the paramedian posterior left cerebell um. 2. Fluid in the right mastoid air cells. Reading Location: [facility]
[2025-01-08] MEDS: Pramipexole Di-HCl 1 MG Tablet PO ×2 (01:43→21:19)
[2025-01-08] MEDS: 0.9% Normal Saline (1000mL) 1,000 ML 100 ML IV (01:43)
[2025-01-08 06:09] LABS: Absolute Lymphocyte Count 1.56 X10^3/uL (0.83-4.51); Absolute Neutrophil Count 4.4 X10^3/uL (2.0-7.7); Basophil# 0.04 X10^3/uL; Basophil% 0.6 % (0-1); Eosinophils% 1.5 % (0-5); Hematocrit 41.4 % (40-54); Hemoglobin 13.9 g/dL (13.0-16.5); Lymphocyte # 1.56 X10^3/ul (0.83-4.51); Mean Corp Hgb Conc 33.6 g/dL (32-36); Mean Corpuscular Hgb 30.3 pg (27.0-32.0); Mean Corpuscular Volume 90.2 fL (80-94); Monocyte# 0.62 X10^3/uL; Monocyte% 9.1 % (0-10); NRBC Flagged by Analyzer 0 % (0-5); Neutrophil # 4.44 X10^3/uL (2.7-7.7); Neutrophil % 65.4 % (47-70); Platelet Count 156 K/mm3 (150-450); RBC Distribution Width CV 12.8 % (11.6-14.6); RBC Distribution Width SD 42.3 fl (35.1-43.9); Red Blood Count 4.59 M/mm3 (4.6-6.2); White Blood Count 6.8 K/mm3 (4.4-11.0)
[2025-01-08] MEDS: Insulin Lispro 100 UNIT/ML INSULN.PEN SC (06:32)
[2025-01-08 07:16] LABS: ALB/GLOB Ratio 1.1 RATIO (0.9-2.4); AST(SGOT) 14 U/L (15-37); Alanine Aminotransfer ALT/SGPT 19 U/L (16-61); Albumin, Serum 3.2 g/dL (3.2-5.0); Alkaline Phosphatase 86 U/L (45-117); Anion Gap 7 (5-15); BUN 27 mg/dL (7-18); BUN/Creat Ratio 16.1 RATIO (10-20); Calcium,Total 8.4 mg/dL (8.5-10.1); Chloride 107 mmol/L (98-107); Cholesterol 134 mg/dL (200); Creatinine, Serum 1.68 mg/dL (0.70-1.30); EST Glomerular Filtration Rate 44 mL/min (>60); Est Glom Filt Rate - Afr Amer 54 mL/min (>60); Estimated Creatinine Clearance 63.58 ml/min; Glucose 154 mg/dL (74-106); High Density Lipoprotein 35 mg/dL; Potassium 3.7 mmol/L (3.5-5.1); Protein, Total 6.2 g/dL (6.4-8.2); Sodium Level 139 mmol/L (136-145); Triglycerides 164 mg/dL; Very Low Density Lipoprotein 33 mg/dL (5-40)
[2025-01-08 07:21] LABS: Bedside Glucose 153 mg/dL (74-106)
[2025-01-08] MEDS: LORazepam 0.5 MG Tablet PO (10:24)
--- NOTE | 2025-01-08 11:11 | NEURO.CONS ---
Assessment and Plan: Neuro Assessment/Plan NATALIA ESQUIVEL is a 64 M with a past medical history ofHTN, HLD, DM, CKD and CAD presented for recurrent episdoe of veritgo. pt was recently admitted for dizziness and found to have left cerebellum infarcts. he was discharged home and represented with similar symptoms. MRI showed new small cerebellum infarcts ( in my read) etiology of stroke is cryptogenic left vert occlusion is stable stump emboli phenomoena causing further strokes is possible vs cardio embolic etiolgy CTA: no acute findings ( stable none opacification of the left vert with reconstitution) Plan: cont DAPT as planned( 21 one days then followed by ASA monotherapry) event monitor MARIA C vascular risks modification PT/OT HPI Consult Data Date of Consult: 01/08/25 HPI Narrative HPI Narrative: The patient is a 64-year-old male w/ PMHx: CKD stage III unclear , HTN, HLD, RLS, IDDM, Morbid obesity, IDDM re presented to the ED with verigo, he was recently discharged on 06/05 after an admission for similar symptoms that revealed right cerebellum stroke., he was started on dapt and discharged home, he had another episode on 01/06 he presented to the ED again and CTA was stable. he had another episode on Friday morning and re-presented to the ED. he denies weakness, numbness, double vision or slurred speech. [facility]LY [facility] Medical History Wears glasses Wears dentures Insulin dependent diabetes mellitus History of renal disease Arthritis Episodic ataxia Dietary restriction Non-smoker Cardiology follow-up encounter History of stress test Hx of fracture of leg Family history of colon cancer RLS (restless legs syndrome) Insomnia Hyperlipidemia Hx of adenomatous colonic polyps HTN (hypertension) Home Medications ?Medication ?Instructions ?Recorded ?Last Taken ?Type insulin aspar prt-insulin aspart 15 - 20 unit subcut BID DIABETES 03/24/18 01/03/25 History 100 unit/mL (70-30) subcutaneous soln (Novolog Mix 70-30 U-100 Insuln) atorvastatin 40 mg tablet 40 mg PO QHS CHOLESTEROL 10/30/18 01/02/25 History benazepril 40 mg tablet (Lotensin) 40 mg PO DAILY BP 10/30/18 01/03/25 History insulin degludec 100 unit/mL (3 60 unit SQ QHS DIABETES 10/30/18 01/02/25 History mL) subcutaneous pen (Tresiba FlexTouch U-100 insulin) hydrochlorothiazide 12.5 mg tablet 12.5 mg PO DAILY diuretic 07/10/23 01/03/25 History ropinirole 2 mg tablet 2 mg PO QHS restless legs 07/10/23 01/02/25 History temazepam 15 mg capsule 15 mg PO QHS sleep 07/10/23 01/02/25 History trazodone 100 mg tablet 100 mg PO QHS sleep 07/10/23 01/02/25 History metformin 500 mg tablet 500 mg PO DAILY diabetes 01/03/25 01/03/25 History aspirin 81 mg chewable tablet 81 mg PO BREAKFAST #30 tabs 01/04/25 Unknown Rx clopidogrel 75 mg tablet 75 mg PO DAILY #21 tabs 01/04/25 Unknown Rx Allergy/AdvReac Type Severity Reaction Status Date / Time acetaminophen (From Percocet) AdvReac Panic Verified 01/07/25 22:37 attack hydrocodone (From Vicodin) AdvReac Panic Verified 01/07/25 22:37 attack oxycodone (From Percocet) AdvReac Panic Verified 01/07/25 22:37 attack Family History Grandmother Colon cancer Brother Colon cancer Mother Diabetes CVA (cerebral vascular accident) Hypertension Father Diabetes Pancreatic cancer Surgical History History of excision of lesion History of removal of retained hardware Hx of umbilical hernia repair Hx of appendectomy Hx of total knee arthroplasty Hx of total hip arthroplasty Hx of colonoscopy Social History household members: spouse current occupational status: employed Smoking Status: Never smoker alcohol intake: never substance use type: does not use Vital Signs Vital Signs Vital Signs: 01/07/25 22:37 01/07/25 22:54 01/07/25 23:00 Temperature 98 F Temperature Source Oral Pulse Rate 84 85 91 Pulse Strength Respiratory Rate 21 H 18 18 Respiratory Effort Respiratory Depth Respiratory Pattern Blood Pressure 145/70 H 131/62 H 114/67 Blood Pressure Mean 95 85 82 Blood Pressure Source Blood Pressure Position Blood Pressure Location Pulse Ox 99 97 97 Oxygen Delivery Method Room Air Room Air Room Air 01/07/25 23:30 01/08/25 00:00 01/08/25 00:09 Temperature 98.1 F Temperature Source Pulse Rate 89 87 87 Pulse Strength Respiratory Rate 18 18 18 Respiratory Effort Respiratory Depth Respiratory Pattern Blood Pressure 122/52 H 119/76 119/76 Blood Pressure Mean 75 90 90 Blood Pressure Source Blood Pressure Position Blood Pressure Location Pulse Ox 96 95 95 Oxygen Delivery Method Room Air Room Air 01/08/25 00:30 01/08/25 01:20 01/08/25 01:27 Temperature 97.2 F L Temperature Source Temporal Pulse Rate 98 84 Pulse Strength Respiratory Rate 18 16 Respiratory Effort Normal Non-Labored Respiratory Depth Normal Respiratory Pattern Normal Blood Pressure 104/73 128/62 H Blood Pressure Mean 83 84 Blood Pressure Source Monitor Blood Pressure Position Semi-Fowlers Blood Pressure Location Right Arm Pulse Ox 94 97 Oxygen Delivery Method Room Air Room Air Room Air 01/08/25 05:20 01/08/25 07:23 01/08/25 08:44 Temperature 98.0 F Temperature Source Oral Pulse Rate 82 Pulse Strength Normal (2+) Respiratory Rate 16 Respiratory Effort Respiratory Depth Respiratory Pattern Blood Pressure 130/71 H Blood Pressure Mean 90 Blood Pressure Source Monitor Blood Pressure Position Semi-Fowlers Blood Pressure Location Right Forearm Pulse Ox 96 94 Oxygen Delivery Method Room Air Room Air 01/08/25 09:20 01/08/25 09:37 Temperature 97.2 F L Temperature Source Temporal Pulse Rate 80 Pulse Strength Respiratory Rate 18 Respiratory Effort Normal Non-Labored Respiratory Depth Normal Respiratory Pattern Normal Blood Pressure 118/69 Blood Pressure Mean 85 Blood Pressure Source Monitor Blood Pressure Position Semi-Fowlers Blood Pressure Location Right Forearm Pulse Ox 95 Oxygen Delivery Method Room Air Room Air Weight Weight: 133.555 kg Body Mass Index (BMI) 41.1 EEG Results Procedure Details EEG Procedure Details: NATALIA ESQUIVEL is a 64 year old M with a past medical history of , who presents for evaluation of Electroencephalogram on DATE at TIME NIHSS NIHSS Nursing Documentation NIHSS Nursing Documentation: NIH Stroke Scale Start: 01/07/25 22:41 Freq: Status: Discharge Protocol: Activity Type Activity Date Activity User E-sign Co-sign Detail Recorded Client Recorded Date Recorded By Document 01/07/25 22:42 [id number] 01/07/25 22:42 JS 01/07/25 22:42 NIH Stroke Scale [NIHSS] A score of 0 is normal or asymptomatic . Total possible score is 42. Inpatient: RN or Physician to activate a stroke alert for onset of new stroke symptoms or with NIHSS increase >/= 3 points. Following change in neurological status, NIHSS will be performed per physician order or more frequently PRN. -1a. Level of Consciousness Alert; keenly responsive -1b. LOC Questions Answers BOTH questions correctly. -1c. LOC Commands Performs both tasks correctly . -2. Best Gaze Normal -3. Visual No visual loss -4. Facial Palsy Normal symmetrical movements -5a. Left Arm No drift; arm holds 90 (or 45 ) degrees for full 10 seconds -5b. Right Arm No drift; arm holds 90 (or 45 ) degrees for full 10 seconds -6a. Left Leg No drift; leg holds 30-degree position for full 5 seconds -6b. Right Leg No drift; leg holds 30-degree position for full 5 seconds -7. Limb Ataxia Absent -8. Sensory Normal; no sensory loss -9. Best Language No aphasia; normal -10. Dysarthria Normal -11. Extinction and Inattention No abnormality -Total 0 Query Text:A score of 0 is normal or asymptomatic. Total possible score is 42 . ED: Notify Physician for NIHSS increase by > / = 3 points. Inpatient: RN or Physician to activate a stroke alert for NIHSS increase of > / = 3 points. NIHSS: Ischemic Stroke/TIA Start: 01/08/25 00:49 Text: For PCU Patients: NIH and Neuro Check every 4 Status: Active hours, PRN and with change in RN caregiver. Freq: [id number] Protocol: Activity Type Activity Date Activity User E-sign Co-sign Detail Recorded Client Recorded Date Recorded By Document 01/08/25 09:33 [email or web address] [id number] 01/08/25 09:36 [email or web address] 01/08/25 09:33 -1a. Level of Consciousness Alert; keenly responsive -1b. LOC Questions Answers BOTH questions correctly. -1c. LOC Commands Performs both tasks correctly . -2. Best Gaze Normal -3. Visual No visual loss -4. Facial Palsy Normal symmetrical movements -5a. Left Arm No drift; arm holds 90 (or 45 ) degrees for full 10 seconds -5b. Right Arm No drift; arm holds 90 (or 45 ) degrees for full 10 seconds -6a. Left Leg No drift; leg holds 30-degree position for full 5 seconds -6b. Right Leg No drift; leg holds 30-degree position for full 5 seconds -7. Limb Ataxia Absent -8. Sensory Normal; no sensory loss -9. Best Language No aphasia; normal -10. Dysarthria Normal -11. Extinction and Inattention No abnormality -Total 0 Query Text:A score of 0 is normal or asymptomatic. Total possible score is 42 . ED: Notify Physician for NIHSS increase by > / = 3 points. Inpatient: RN or Physician to activate a stroke alert for NIHSS increase of > / = 3 points. Coma Scale [Assess] -Eye Opening Spontaneous -Motor Obeys Commands -Verbal Oriented [Total] -Coma Scale Total 15 Physical Exam Neuro Neuro Narrative: awake alert oriented following commands PERRLA, EMOI Face symmetric motor exam move all ext antigravity no drift FTN wnl no sensory deficit Lab / Micro Data 01/08/25 05:52 01/08/25 05:52 Labs: Laboratory Results - last 24 hr 01/07/25 22:40: WBC 7.8, RBC 5.12, Hgb 15.7, Hct 46.0, MCV 89.8, MCH 30.7, MCHC 34.1, RDW Std Deviation 42.3, RDW Coeff of Ramone 12.9, Plt Count 176, MPV 10.0, Immature Gran % (Auto) 0.400, Neut % (Auto) 64.5, Lymph % (Auto) 22.9, Sawyer % (Auto) 10.7 H, Eos % (Auto) 1.0, Baso % (Auto) 0.5, Absolute Neuts (auto) 5.0, Absolute Lymphs (auto) 1.78, Nucleated RBC % 0, PT 13.4, INR 1.0, APTT 24.3, Sodium 139, Potassium 3.9, Chloride 103, Carbon Dioxide 28.0, Anion Gap 8, BUN 29 H, Creatinine 2.04 H, Estim Creat Clear Calc 52.88, Est GFR (MDRD) Af Amer 43 L, Est GFR (MDRD) Non-Af 35 L, BUN/Creatinine Ratio 14.2, Glucose 188 H, Calcium 9.4, Magnesium 2.0 01/08/25 05:52: WBC 6.8, RBC 4.59 L, Hgb 13.9, Hct 41.4, MCV 90.2, MCH 30.3, MCHC 33.6, RDW Std Deviation 42.3, RDW Coeff of Ramone 12.8, Plt Count 156, MPV 10.0, Immature Gran % (Auto) 0.400, Neut % (Auto) 65.4, Lymph % (Auto) 23.0, Sawyer % (Auto) 9.1, Eos % (Auto) 1.5, Baso % (Auto) 0.6, Absolute Neuts (auto) 4.4, Absolute Lymphs (auto) 1.56, Nucleated RBC % 0, Sodium 139, Potassium 3.7, Chloride 107, Carbon Dioxide 25.0, Anion Gap 7, BUN 27 H, Creatinine 1.68 H, Estim Creat Clear Calc 63.58, Est GFR (MDRD) Af Amer 54 L, Est GFR (MDRD) Non-Af 44 L, BUN/Creatinine Ratio 16.1, Glucose 154 H, Calcium 8.4 L, Total Bilirubin 0.50, AST 14 L, ALT 19, Alkaline Phosphatase 86, Total Protein 6.2 L, Albumin 3.2, Globulin 3.0, Albumin/Globulin Ratio 1.1, Triglycerides 164, Cholesterol 134, LDL Cholesterol 66, VLDL Cholesterol 33, HDL Cholesterol 35 L 01/08/25 06:28: POC Glucose 153 H Imaging Radiology Impression Head/Neck CTA 01/07/25 22:48 IMPRESSION: No interval change. Non-opacification of the proximal left vertebral artery. One or more dose reduction techniques were used (e.g., Automated exposure control, adjustment of the mA and/or kV according to patient size, use of iterative reconstruction technique). Reading Location: [id number] Brain CT 01/07/25 22:50 IMPRESSION: No new acute intracranial abnormality. Mild hypodensity in the left cerebellum is likely due to evolving prior infarction. No evidence of hemorrhage. Critical results were communicated to Dr. Banks. One or more dose reduction techniques were used (e.g., Automated exposure control, adjustment of the mA and/or kV according to patient size, use of iterative reconstruction technique). Reading Location: [facility] Active Medications Active Medications Active Medications: Current Medications Generic Name Dose Route Start Last Admin Trade Name Freq PRN Reason Stop Dose Admin Acetaminophen 650 mg 01/08/25 00:49 Acetaminophen 325 Mg Tablet PO Q4H PRN PRN Fever, pain 1-09/09 Al Hydroxide/Mg Hydroxide 30 ml 01/08/25 00:49 Mag Hydrox/Al Hydrox/Simeth 30 Ml Udc PO Q6H PRN PRN Gastric Burning Albuterol Sulfate 2.5 mg 01/08/25 00:49 Albuterol 2.5 Mg/3 Ml Vial.Neb. INHALATION Q2H PRN PRN Dyspnea, wheezing Aspirin 81 mg 01/08/25 08:00 Aspirin 81 Mg Tab.Chew PO BREAKFAST LUIS A Atorvastatin Calcium 40 mg 01/08/25 22:00 Atorvastatin Calcium 40 Mg Tablet PO QHS LUIS A Clopidogrel Bisulfate 75 mg 01/08/25 10:00 Clopidogrel Bisulfate 75 Mg Tablet PO DAILY LUIS A Enoxaparin Sodium 40 mg 01/08/25 10:00 Enoxaparin 40 Mg/0.4 Ml Syringe SC BID LUIS A Glucagon 1 mg 01/08/25 00:49 Glucagon 1 Mg/Ml Syringe IM X1 PRN HYPOGLYCEMIA Protocol Guaifenesin 20 ml 01/08/25 00:49 Guaifenesin 10 Ml Udc (200mg/10ml) PO Q4H PRN PRN COUGH Hydralazine HCl 5 mg 01/08/25 00:49 Hydralazine 20 Mg/Ml Vial IV 01/09/25 00:50 Q30M PRN maintain BP parameters with HR <60 Dextrose 250 mls @ 0 mls/hr 01/08/25 00:49 Dextrose 10%-Water IV .Q0M PRN HYPOGLYCEMIA Protocol As Directed Sodium Chloride 100 mls @ 15 mls/hr 01/08/25 01:07 IV .Q6H40M PRN Saline Flush Sodium Chloride 100 mls @ 15 mls/hr 01/08/25 01:07 IV .Q6H40M PRN Additional IVPB Infusion Insulin Glargine 60 unit 01/08/25 22:00 Insulin Glargine-Yfgn 100 Unit/Ml Pen SC QHS LUIS A Insulin Human Lispro 0 unit 01/08/25 07:00 01/08/25 06:32 Insulin Lispro 100 Unit/Ml Insuln.Pen SC 1 units ACHS [facility] Administration Protocol Labetalol HCl 10 - 20 mg 01/08/25 00:49 Labetalol 20mg/4ml Syringe IV 01/09/25 00:50 Q10M PRN PRN maintain BP parameters with HR >/=60 Meclizine HCl 25 mg 01/08/25 00:49 Meclizine Hcl 25 Mg Tablet PO TID PRN PRN VERTIGO Melatonin 3 mg 01/08/25 00:49 Melatonin 3 Mg Tablet PO QHS PRN PRN INSOMNIA Ondansetron HCl 4 mg 01/08/25 00:49 Ondansetron 4 Mg/2 Ml Vial IV Q8H PRN PRN NAUSEA/VOMITING Pramipexole Dihydrochloride 1 mg 01/08/25 01:15 01/08/25 01:43 Pramipexole Di[facility]Hcl 1 Mg [facility] Prochlorperazine Edisylate 5 mg 01/08/25 00:49 Prochlorperazine 10 Mg/2 Ml Vial IV Q4H PRN PRN Breakthrough Nausea/Vomiting Senna/Docusate Sodium 2 tablet 01/08/25 00:49 Senna/Docusate Sodium 1 Tablet PO BID PRN PRN Constipation Sodium Chloride 10 - 40 ml 01/08/25 01:07 0.9% Saline Lock 10 Ml Syringe IV UD PRN SALINE FLUSH Trazodone HCl 100 mg 01/08/25 22:00 [facility]one 100 [facility]
[2025-01-08] MEDS: Clopidogrel Bisulfate 75 MG Tablet PO (12:09)
[2025-01-08] MEDS: Enoxaparin 40 MG/0.4 ML Syringe SC ×2 (12:10→21:20)
[2025-01-08] MEDS: Aspirin 81 MG TAB.CHEW PO (12:10)
[2025-01-08 12:32] LABS: Bedside Glucose 141 mg/dL (74-106)
--- NOTE | 2025-01-08 13:12 | PCM.PN.HOSP ---
Reason for Visit Reason for Visit: Diagnoses Dizziness and giddiness (01/07/25) Subjective Subjective Saw patient at bedside this morning. Patient was laying back comfortably in bed and in no acute distress. Denied any dizziness or lightheadedness at rest currently. Was about to go down for his MRI when I saw him. No other acute concerns at that time. Objective Data Objective Data Vital Signs: Vital Signs Temp Pulse Resp BP Pulse Ox O2 Del Method 97.2 F L 80 18 118/69 95 Room Air 01/08/25 09:20 01/08/25 09:20 01/08/25 09:20 01/08/25 09:20 01/08/25 09:20 01/08/25 09:37 Oxygen Delivery Method Room Air Weight: 133.555 kg Body Mass Index (BMI) 41.1 Intake & Output: Intake and Output for Last 24 Hours 01/06/25 01/07/25 01/08/25 23:59 23:59 23:59 Intake Total 2240 / 2240 Balance 2240 / 2240 Lab / Micro Data 01/08/25 05:52 01/08/25 05:52 Labs: Laboratory Results - last 24 hr 01/07/25 22:40: WBC 7.8, RBC 5.12, Hgb 15.7, Hct 46.0, MCV 89.8, MCH 30.7, MCHC 34.1, RDW Std Deviation 42.3, RDW Coeff of Ramone 12.9, Plt Count 176, MPV 10.0, Immature Gran % (Auto) 0.400, Neut % (Auto) 64.5, Lymph % (Auto) 22.9, Ralls % (Auto) 10.7 H, Eos % (Auto) 1.0, Baso % (Auto) 0.5, Absolute Neuts (auto) 5.0, Absolute Lymphs (auto) 1.78, Nucleated RBC % 0, PT 13.4, INR 1.0, APTT 24.3, Sodium 139, Potassium 3.9, Chloride 103, Carbon Dioxide 28.0, Anion Gap 8, BUN 29 H, Creatinine 2.04 H, Estim Creat Clear Calc 52.88, Est GFR (MDRD) Af Amer 43 L, Est GFR (MDRD) Non-Af 35 L, BUN/Creatinine Ratio 14.2, Glucose 188 H, Calcium 9.4, Magnesium 2.0 02/08/25 05:52: WBC 6.8, RBC 4.59 L, Hgb 13.9, Hct 41.4, MCV 90.2, MCH 30.3, MCHC 33.6, RDW Std Deviation 42.3, RDW Coeff of Ramone 12.8, Plt Count 156, MPV 10.0, Immature Gran % (Auto) 0.400, Neut % (Auto) 65.4, Lymph % (Auto) 23.0, Ralls % (Auto) 9.1, Eos % (Auto) 1.5, Baso % (Auto) 0.6, Absolute Neuts (auto) 4.4, Absolute Lymphs (auto) 1.56, Nucleated RBC % 0, Sodium 139, Potassium 3.7, Chloride 107, Carbon Dioxide 25.0, Anion Gap 7, BUN 27 H, Creatinine 1.68 H, Estim Creat Clear Calc 63.58, Est GFR (MDRD) Af Amer 54 L, Est GFR (MDRD) Non-Af 44 L, BUN/Creatinine Ratio 16.1, Glucose 154 H, Calcium 8.4 L, Total Bilirubin 0.50, AST 14 L, ALT 19, Alkaline Phosphatase 86, Total Protein 6.2 L, Albumin 3.2, Globulin 3.0, Albumin/Globulin Ratio 1.1, Triglycerides 164, Cholesterol 134, LDL Cholesterol 66, VLDL Cholesterol 33, HDL Cholesterol 35 L 01/08/25 06:28: POC Glucose 153 H 01/08/25 12:09: POC Glucose 141 H Radiography Diagnostic Testing: Radiology Impression Head/Neck CTA 01/07/25 22:48 IMPRESSION: No interval change. Non-opacification of the proximal left vertebral artery. One or more dose reduction techniques were used (e.g., Automated exposure control, adjustment of the mA and/or kV according to patient size, use of iterative reconstruction technique). Reading Location: [id number] Brain CT 01/07/25 22:50 IMPRESSION: No new acute intracranial abnormality. Mild hypodensity in the left cerebellum is likely due to evolving prior infarction. No evidence of hemorrhage. Critical results were communicated to Dr. Banks. One or more dose reduction techniques were used (e.g., Automated exposure control, adjustment of the mA and/or kV according to patient size, use of iterative reconstruction technique). Reading Location: [facility] Physical Exam Const alert, oriented x3 and no apparent distress Constitutional Narrative: Middle-age male, class III obesity, mildly fatigued appearing but otherwise laying back comfortably in bed, conversing normally, in no acute distress. General Appearance: cooperative and comfortable HEENT normocephalic, head/scalp atraumatic, hearing grossly normal bilaterally, nasal mucous membranes and turbinates normal and moist oral mucous membranes Eyes PERRL, EOMs intact bilaterally and conjunctivae normal Neck full ROM Chest inspection of chest normal Resp normal respiratory effort, normal air movement, no use of accessory muscles and clear to auscultation bilaterally Cardio regular rate, regular rhythm, no murmurs and peripheral pulses 2+ throughout GI normal to inspection, nondistended, normoactive bowel sounds, soft to palpation, non-tender and non-distended Back/Spine normal ROM Extremity normal to inspection, full ROM and no pedal edema Skin no rashes or lesions noted Neuro oriented x3, moves all extremities and no focal motor deficits Speech: speech normal Psych mental status grossly normal Assessment & Plan Assessment/Plan (1) Cerebellar infarct: (2) Acute severe vertigo: PLAN: Plan Patient is a 64-year-old male who presented [facility] ED on 01/07/2025 with recurrent stroke symptoms. 1. Recent left cerebellar stroke with concern for second cerebellar stroke ? Neurology following. Recently hospitalized from 01/03-01/04 for acute left cerebellar stroke. Presented then with acute severe vertigo and MRI brain showed left cerebellar small focus of restricted diffusion compatible with acute infarction. Patient had improvement in symptoms and was able to be discharged home on hospital day 2. He then had severe recurrence of symptoms on 01/07 prompting him to present to the ED again. Repeat MRI brain on 01/08 showed small acute/subacute ischemic foci in the paramedian posterior left cerebellum. Neurology noted concern for new area of stroke on his wet read of MRI, unclear if this is at prior location or is new. Will continue to treat with dual antiplatelet therapy for now. Continue high intensity statin. Will discuss with neurology on need for possible MARIA C, given that echo during previous admission was unremarkable. PT/OT/case management following. Chronic medical conditions: ? Class III obesity: BMI 41 on admit. Complicates hospital course, care and prognosis. ? CKD stage IIIb: Creatinine stable at baseline 1.6-2.0 on admit. ? Type 2 diabetes mellitus: Continue home insulin degludec 60 units at night and sliding scale scale with meals, adjust as needed. ? Hypertension: Holding home benazepril and hydrochlorothiazide for now, restart when able. ? Insomnia: Continue home temazepam and trazodone. ? Restless leg syndrome: Continue home ropinirole. DVT prophylaxis: Lovenox CODE STATUS: Full code, verified Expected disposition: TBD *Patient was admitted under observation status but given concern for new cerebellar stroke and possible need for MARIA C, will transition patient to inpatient status. Total clinical time spent by myself addressing the patient's medical issues, reviewing all the data, and collaborating with patient's care team: 35 minutes. Charges/Coding Visit Charges Inpatient E&M: 82713 Subs Hosp L2
[2025-01-08 14:07] LABS: Bedside Glucose 174 mg/dL (74-106)
[2025-01-08 17:12] LABS: Bedside Glucose 147 mg/dL (74-106)
[2025-01-08] MEDS: Insulin Glargine-YFGN 100 UNIT/ML Pen 60 UNIT SC (21:18)
[2025-01-08] MEDS: Atorvastatin Calcium 40 MG Tablet PO (21:19)
[2025-01-08] MEDS: traZODone 100 MG Tablet PO (21:19)
[2025-01-08 21:42] LABS: Bedside Glucose 123 mg/dL (74-106)
[2025-01-09] VITALS (8 sets, daily range): BP systolic 117–138; BP diastolic 68–89; PULSE 71–81; RESP 18; TEMP 36.3–37; O2SAT 94–99; BMI 41.1
[2025-01-09 07:00] LABS: Bedside Glucose 105 mg/dL (74-106)
[2025-01-09] MEDS: Clopidogrel Bisulfate 75 MG Tablet PO (09:59)
[2025-01-09] MEDS: Enoxaparin 40 MG/0.4 ML Syringe SC ×2 (09:59→21:24)
[2025-01-09] MEDS: Aspirin 81 MG TAB.CHEW PO (09:59)
--- NOTE | 2025-01-09 10:40 | PCM.PN.HOSP ---
Reason for Visit Reason for Visit: Diagnoses Cerebral infarction, unspecified (01/08/25) Dizziness and giddiness (01/08/25) Subjective Subjective Saw patient at bedside this morning. Sitting back comfortably in bedside chair, conversing normally, in no acute distress. Did have some lightheadedness and dizziness when going from laying to standing coming out of MRI yesterday but did well with therapy yesterday afternoon and no symptoms this morning. No other acute concerns morning. Objective Data Objective Data Vital Signs: Vital Signs Temp Pulse Resp BP Pulse Ox O2 Del Method 98.0 F 73 18 117/68 99 Room Air 01/09/25 09:15 01/09/25 09:15 01/09/25 09:15 01/09/25 09:15 01/09/25 09:15 01/09/25 09:54 Oxygen Delivery Method Room Air Weight: 133.555 kg Body Mass Index (BMI) 41.1 Intake & Output: Intake and Output for Last 24 Hours 01/07/25 01/08/25 01/09/25 23:59 23:59 23:59 Intake Total 2600 / 2600 60 / 60 Balance 2600 / 2600 60 / 60 Lab / Micro Data 01/08/25 05:52 01/08/25 05:52 Labs: Laboratory Results - last 24 hr 01/07/25 22:38: POC Glucose 174 H 01/08/25 12:09: POC Glucose 141 H 01/08/25 16:46: POC Glucose 147 H 01/08/25 21:16: POC Glucose 123 H 01/09/25 06:42: POC Glucose 105 Radiography Diagnostic Testing: Radiology Impression Brain MRI 01/08/25 00:49 IMPRESSION: 1. Small acute/subacute ischemic foci in the paramedian posterior left cerebellum. 2. Fluid in the right mastoid air cells. Reading Location: [facility] Physical Exam Const alert, oriented x3 and no apparent distress Constitutional Narrative: Middle-age male, class III obesity, energy improved for admission, sitting up comfortably in bedside chair, conversing normally, in no acute distress. General Appearance: cooperative and comfortable HEENT normocephalic, head/scalp atraumatic, hearing grossly normal bilaterally, nasal mucous membranes and turbinates normal and moist oral mucous membranes Eyes PERRL, EOMs intact bilaterally and conjunctivae normal Neck full ROM Chest inspection of chest normal Resp normal respiratory effort, normal air movement, no use of accessory muscles and clear to auscultation bilaterally Cardio regular rate, regular rhythm, no murmurs and peripheral pulses 2+ throughout GI normal to inspection, nondistended, normoactive bowel sounds, soft to palpation, non-tender and non-distended Back/Spine normal ROM Extremity normal to inspection, full ROM and no pedal edema Skin no rashes or lesions noted Neuro oriented x3, moves all extremities and no focal motor deficits Speech: speech normal Psych mental status grossly normal Assessment & Plan Assessment/Plan (1) Cerebellar infarct: (2) Acute severe vertigo: PLAN: Plan Patient is a 64-year-old male who presented [facility] ED on 01/07/2025 with recurrent stroke symptoms. 1. Recent left cerebellar stroke with concern for second cerebellar stroke ? Neurology following. Recently hospitalized from 01/03-01/04 for acute left cerebellar stroke. Presented then with acute severe vertigo and MRI brain showed left cerebellar small focus of restricted diffusion compatible with acute infarction. Patient had improvement in symptoms and was able to be discharged home on hospital day 2. He then had severe recurrence of symptoms on 01/07 prompting him to present to the ED again. Repeat MRI brain on 01/08 showed small acute/subacute ischemic foci in the paramedian posterior left cerebellum which per neurology appears to be a new area from previous. Will continue to treat with dual antiplatelet therapy for now. Continue high intensity statin. Cardiology consulted for MARIA C; will keep n.p.o. at midnight for this. PT/OT/case management following, should be okay for discharge home once medically ready. Chronic medical conditions: ? Class III obesity: BMI 41 on admit. Complicates hospital course, care and prognosis. ? CKD stage IIIb: Creatinine stable at baseline 1.6-2.0 on admit. ? Type 2 diabetes mellitus: Continue home insulin degludec 60 units at night and sliding scale scale with meals, adjust as needed. ? Hypertension: Holding home benazepril and hydrochlorothiazide for now, restart when able. ? Insomnia: Continue home temazepam and trazodone. ? Restless leg syndrome: Continue home ropinirole. DVT prophylaxis: Lovenox CODE STATUS: Full code, verified Expected disposition: Home, 1 to 2 days Total clinical time spent by myself addressing the patient's medical issues, reviewing all the data, and collaborating with patient's care team: 35 minutes. Charges/Coding Visit Charges Inpatient E&M: 68617 Subs Hosp L2
[2025-01-09 12:02] LABS: Bedside Glucose 99 mg/dL (74-106)
--- NOTE | 2025-01-09 14:04 | ECHOTEE_ITS ---
Reason For Study: TIA/CVA Medication MARIA C probe 6VT-D (SN [id number]) passed with minimal difficulty. No complications were noted. Cetacaine Topical [place] given X3 orally. Versed 2 mg given slow IVP. Fentanyl 50 mcg given slow IVP. Performed a rapid injection of agitated mix of 9 cc saline and 1cc air to assess for atrial septal defect. Left Ventricle Normal LV size. Left ventricular systolic function is normal. The left ventricular ejection fraction is 60 %. No regional wall motion abnormalities noted. Right Ventricle Normal RV size. Normal systolic function. Atria Bubble contrast study negative for right to left interatrial shunt. Normal left atrium. No thrombus is detected in the left atrial appendage. Normal right atrium. Mitral Valve Normal mitral valve. Tricuspid Valve Normal tricuspid valve. Aortic Valve Trisinus/trileaflet aortic valve. Mild diffuse aortic valve thickening. Pulmonic Valve Normal pulmonic valve. Vessels Normal aortic root. Normal arch. The pulmonary artery is normal size. Pericardium No pericardial effusion. ECHO/Echo Transesophageal (MARIA C) Interpretation Summary Normal LV size. Left ventricular systolic function is normal. The left ventricular ejection fraction is 60 %. Bubble contrast study negative for right to left interatrial shunt. No thrombus is detected in the left atrial appendage. Mild diffuse aortic valve thickening. No significant abnormality suggestive of thromboembolic source Ordering Physician: Khanh Sanchez Performed By: Vu Kay RCS
[2025-01-09 16:58] LABS: Bedside Glucose 132 mg/dL (74-106)
[2025-01-09] MEDS: Insulin Lispro 100 UNIT/ML INSULN.PEN SC (21:20)
[2025-01-09] MEDS: traZODone 100 MG Tablet PO (21:20)
[2025-01-09] MEDS: Insulin Glargine-YFGN 100 UNIT/ML Pen 60 UNIT SC (21:21)
[2025-01-09] MEDS: 0.9% Saline Lock 10 ML Syringe IV (21:21)
[2025-01-09] MEDS: Atorvastatin Calcium 40 MG Tablet PO (21:22)
[2025-01-09] MEDS: Pramipexole Di-HCl 1 MG Tablet PO (21:24)
[2025-01-09] MEDS: Senna/Docusate Sodium 1 Tablet 2 TABLET PO (21:33)
[2025-01-09 23:05] LABS: Bedside Glucose 214 mg/dL (74-106)
[2025-01-10 00:36] VITALS: BMI 41.1
[2025-01-10 01:15] VITALS: BP 111/64; PULSE 80; RESP 18; TEMP 36.7; O2SAT 96
[2025-01-10 05:15] VITALS: BP 115/60; PULSE 75; RESP 18; TEMP 36.6; O2SAT 96
[2025-01-10 06:30] LABS: Hematocrit 42.1 % (40-54); Mean Corp Hgb Conc 33.3 g/dL (32-36); Mean Corpuscular Hgb 29.7 pg (27.0-32.0); Mean Corpuscular Volume 89.4 fL (80-94); Mean Platelet Vol. 9.5 fl (6.2-12.0); Platelet Count 151 K/mm3 (150-450); RBC Distribution Width CV 12.5 % (11.6-14.6); RBC Distribution Width SD 41.3 fl (35.1-43.9); Red Blood Count 4.71 M/mm3 (4.6-6.2); White Blood Count 5.2 K/mm3 (4.4-11.0)
[2025-01-10 06:46] LABS: Bedside Glucose 121 mg/dL (74-106)
[2025-01-10 06:48] LABS: Anion Gap 7 (5-15); BUN 20 mg/dL (7-18); BUN/Creat Ratio 13.3 RATIO (10-20); Calcium,Total 8.7 mg/dL (8.5-10.1); Chloride 109 mmol/L (98-107); EST Glomerular Filtration Rate 50 mL/min (>60); Est Glom Filt Rate - Afr Amer 61 mL/min (>60); Estimated Creatinine Clearance 71.21 ml/min; Glucose 141 mg/dL (74-106); Potassium 3.4 mmol/L (3.5-5.1); Sodium Level 140 mmol/L (136-145)
[2025-01-10 08:06] VITALS: O2SAT 95
[2025-01-10 09:15] VITALS: BP 116/78; PULSE 69; RESP 18; TEMP 36.7; O2SAT 96
[2025-01-10 12:40] VITALS: BP 128/68; PULSE 75; RESP 18; TEMP 36.4; O2SAT 96
--- NOTE | 2025-01-10 13:23 | CASEMGMT ---
NANDA CM in to discuss discharge planning with patient, and son at bedside. See assessment from 01/03/25. RN CM discussed recent dizziness and balance issues with patient and is considering outpatient therapy at discharge. RN CM to assist patient with obtaining script for outpatient therapy. Patient has walker for at home. Patient denies further needs or help at discharge. Patient and family had no further questions or concerns. CM will continue to follow this patient and plan for a safe discharge.
--- NOTE | 2025-01-10 15:15 | DS.PCM_ITS ---
Providers Date of Admission: 01/08/25 Primary Care Physician: Dr. Willam Rosales MD Consultations 01/08/25 00:49 Consult: Tele-Neurology Routine Consulting Provider: [facility] Reason for Consult: Acute Ischemic Stroke/TIA EMERGENT Consult: No MD Notified: Yes Date Notified: 01/08/25 Time Notified: 05:09 Method of Notification: Answering Service Nursing Unit Staff Notify [facility] of Tele-Neurology Consult: Yes Reason For Visit: VERTIGO, RECENT CEREBELLAR CVA Diagnosis Discharge Diagnosis (1) Cerebellar infarct: Status: Acute Code(s): I63.9 - Cerebral infarction, unspecified (2) Acute severe vertigo: Status: Acute Code(s): R42 - Dizziness and giddiness Medications at Discharge Home Medications insulin aspar prt-insulin aspart 100 unit/mL (70-30) subcutaneous soln (Novolog Mix 70-30 U-100 Insuln) 15 - 20 unit subcut BID DIABETES 03/24/18 atorvastatin 40 mg tablet 40 mg PO QHS CHOLESTEROL 10/30/18 benazepril 40 mg tablet (Lotensin) 40 mg PO DAILY BP 10/30/18 insulin degludec 100 unit/mL (3 mL) subcutaneous pen (Tresiba FlexTouch U-100 insulin) 60 unit SQ QHS DIABETES 10/30/18 hydrochlorothiazide 12.5 mg tablet 12.5 mg PO DAILY diuretic 07/10/23 ropinirole 2 mg tablet 2 mg PO QHS restless legs 07/10/23 temazepam 15 mg capsule 15 mg PO QHS sleep 07/10/23 trazodone 100 mg tablet 100 mg PO QHS sleep 07/10/23 metformin 500 mg tablet 500 mg PO DAILY diabetes 01/03/25 Held on 01/10/25. Instructions: Resume on 01/12/25. aspirin 81 mg chewable tablet 81 mg PO BREAKFAST #30 tabs 01/04/25 clopidogrel 75 mg tablet 75 mg PO DAILY #21 tabs 01/04/25 meclizine 25 mg tablet 25 mg PO TID PRN PRN Vertigo #20 tabs 01/10/25 Hospital Course Operations None Procedures Transthoracic echo Summary of Care Provided Minutes Spent on Discharge: 32 Hospital Course: Patient presents with recurrent vertigo. Patient had an MRI that neurology read as new cerebellar infarct top of the ones he had previously. Neurology recommending dual antiplatelet therapy, event monitor. He did undergo a MARIA C that was negative for any clots. Patient will continue with aspirin and Plavix and high intensity statin. Told patient it is unclear if he is also having acute inner ear vertigo as well. Patient will follow-up for vestibular therapy and have as needed meclizine but advised that if he does have recurrent symptoms, to notify your physician or return to the emergency room. Physical Exam Const alert and no apparent distress Eyes Eyes Narrative: Mild bilateral nystagmus that fatigue bilaterally. Neck Neck Narrative: No bruits Extremity normal to inspection and no clubbing, cyanosis or edema Neuro oriented x3, moves all extremities and no focal motor deficits Sensorium / Orientation: awake and alert Motor Exam: strength 5/5 throughout Weight / BMI Weight Weight: 133.555 kg Body Mass Index (BMI) 41.1 ABG / Lab / Microbiology Data 01/10/25 06:03 01/10/25 06:03 Laboratory: Laboratory Results - last 24 hr 01/09/25 16:39: POC Glucose 132 H 01/09/25 21:17: POC Glucose 214 H 01/10/25 06:03: WBC 5.2, RBC 4.71, Hgb 14.0, Hct 42.1, MCV 89.4, MCH 29.7, MCHC 33.3, RDW Std Deviation 41.3, RDW Coeff of Ramone 12.5, Plt Count 151, MPV 9.5, Sodium 140, Potassium 3.4 L, Chloride 109 H, Carbon Dioxide 25.0, Anion Gap 7, B UN 20 H, Creatinine 1.50 H, Estim Creat Clear Calc 71.21, Est GFR (MDRD) Af Amer 61, Est GFR (MDRD) Non-Af 50 L, BUN/Creatinine Ratio 13.3, Glucose 141 H, Calcium 8.7 01/10/25 06:21: POC Glucose 121 H D/C Instructions Discharge Diet: Low fat / Low cholesterol DC O2, CPAP, BIPAP Needs Home O2 Discharge instructions: No Meaningful Use Info Meaningful Use Meaningful Use Diagnoses (Choose all that apply): None applicable Ischemic Stroke Statin Dosing Therapy Reference: STATIN DOSE THERAPY REFERENCE: * Patients > 75 years receive moderate or high dose statin therapy. * Patients 75 years or YOUNGER should receive HIGH intensity statin dose unless contraindicated. You will be required to document reason for non-treatment if statin daily dose does not meet guidelines. HIGH DOSE STATIN THERAPY DAILY Atorvastatin > than or = to 40 mg Rosuvastatin > than or = to 20 mg Amlodipine + Atorvastatin > than or = to 2.5/40 mg Ezetimibe + Simvastatin 10/80 mg Simvastatin 80mg Discharge Plan Admission Admit Date/Time: 01/08/25 16:08 Primary Reason for Your Visit: Stroke Attending Provider: Elliott Barraza Primary Care Provider: Willam Rosales Consulting Providers: Jose Angel Chang; David Collazo; Brandi Ochoa; Pita Marti; Deisy Kahn; Pranay Fair; Dodie Yun; Tito Larsen; Donato Snell; Josué Ching; Aimee Bruce; Az Harrison; Gail Hinkle; Sergo Cowan; Sulma Sutton; Rex Bass; Suni Yi; Cory Barrientos; Ambar Mansfield; Alyssia Wang; Keyonna Lindsey; Khanh Sanchez Instructions Additional Instructions / Restrictions: You had recurrent dizziness that may be due to new strokes. The neurologist reviewed your MRI felt that these were new cerebellum infarcts though with your recurrent dizziness this could be just residual from your stroke but also there could be a possibility he may be having inner ear vertigo as well. Do recommend that you follow-up with neurology as well as physical therapy for vestibular (dizziness) therapy. [facility] [phone]. [facility] [place] [phone]. [facility] [place] [phone]. [facility] [phone]. [facility] [place] [phone] Discharge Orders/Prescriptions Prescriptions: New meclizine 25 mg Tablet 25 mg PO TID PRN PRN (Reason: Vertigo) Qty: 20 0RF Continued ropinirole 2 mg tablet 2 mg PO QHS Rx Instructions: administer 1-3 hours before bedtime temazepam 15 mg capsule 15 mg PO QHS trazodone 100 mg tablet 100 mg PO QHS hydrochlorothiazide 12.5 mg tablet 12.5 mg PO DAILY insulin asp prt-insulin aspart [Novolog Mix 70-30 U-100 Insuln] 100 UNIT/ML solution 15 - 20 unit subcut BID Patient Comments: SLIDING SCALE atorvastatin 40 MG tablet 40 mg PO QHS benazepril [Lotensin] 40 MG tablet 40 mg PO DAILY insulin degludec [Tresiba FlexTouch U-100] 100 UNIT/ML insulin pen 60 unit SQ QHS clopidogrel 75 mg Tablet 75 mg PO DAILY Qty: 21 0RF aspirin 81 mg Tablet,Chewable 81 mg PO BREAKFAST Qty: 30 2RF Held metformin 500 mg tablet 500 mg PO DAILY Hold Instructions: Resume on 01/12/25. Referrals / Follow Up: Willam Rosales MD [Primary Care Provider] - Within 2 Weeks Disposition Disposition (needs filled in before D/C Order can be placed): Home, Self Care Charges/Coding Visit Charges Inpatient E&M: 41208 Disch Hosp >30min
[2025-01-10 15:34] VITALS: BP 128/68; PULSE 75; RESP 18; TEMP 36.4; O2SAT 96
[2025-01-10] MEDS: Clopidogrel Bisulfate 75 MG Tablet PO (15:40)
[2025-01-10] MEDS: Aspirin 81 MG TAB.CHEW PO (15:40)
--- NOTE | 2025-01-10 15:45 | CASEMGMT ---
RN CM received script for outpatient therapy. Patient has order for discharge. RN CM in to discuss needs at discharge. RN CM provided patient with script for outpatient therapy to scheduled at facility of choice and [facility] information. Patient and had no further questions or concerns.
--- NOTE | 2025-01-10 16:17 | PHA.DC_ITS ---
Pharmacy [place] Med Reconciliation Pharmacy Service has performed discharge medication reconciliation for this patient. Medication education papers prepared, pt being wheeled out when I got to his room, did not residential counselor. Medications reviewed. The patient's discharge medication list was reviewed for discrepancies and discrepancies were resolved. Medications at Discharge Home Medications insulin aspar prt-insulin aspart 100 unit/mL (70-30) subcutaneous soln (Novolog Mix 70-30 U-100 Insuln) 15 - 20 unit subcut BID DIABETES 03/24/18 atorvastatin 40 mg tablet 40 mg PO QHS CHOLESTEROL 10/30/18 benazepril 40 mg tablet (Lotensin) 40 mg PO DAILY BP 10/30/18 insulin degludec 100 unit/mL (3 mL) subcutaneous pen (Tresiba FlexTouch U-100 insulin) 60 unit SQ QHS DIABETES 10/30/18 hydrochlorothiazide 12.5 mg tablet 12.5 mg PO DAILY diuretic 07/10/23 ropinirole 2 mg tablet 2 mg PO QHS restless legs 07/10/23 temazepam 15 mg capsule 15 mg PO QHS sleep 07/10/23 trazodone 100 mg tablet 100 mg PO QHS sleep 07/10/23 metformin 500 mg tablet 500 mg PO DAILY diabetes 01/03/25 Held on 01/10/25. Instructions: Resume on 01/12/25. aspirin 81 mg chewable tablet 81 mg PO BREAKFAST #30 tabs 01/04/25 clopidogrel 75 mg tablet 75 mg PO DAILY #21 tabs 01/04/25 meclizine 25 mg tablet 25 mg PO TID PRN PRN Vertigo #20 tabs 01/10/25
== END 2025-01-10 15:21 | disposition home or self-care (01) | DRG 65 ==
LOC: ED 23:58 → PCU 01-08 00:35
PROVIDERS: Hospitalist; Admitting Provider Family Medicine; Emergency Provider Emergency Medicine; PCP Family Medicine
DX: I63.89 Other cerebral infarction (principal); Z68.41 Body mass index [BMI] 40.0-44.9, adult; E11.22 Type 2 diabetes mellitus with diabetic chronic kidney disease; N18.32 Chronic kidney disease, stage 3b; I12.9 Hypertensive chronic kidney disease with stage 1 through stage 4 chronic kidney disease, or unspecified chronic kidney disease; G25.81 Restless legs syndrome; F32.A Depression, unspecified; E11.65 Type 2 diabetes mellitus with hyperglycemia; Z79.4 Long term (current) use of insulin; E78.5 Hyperlipidemia, unspecified; E66.01 Morbid (severe) obesity due to excess calories; F41.9 Anxiety disorder, unspecified; H55.00 Unspecified nystagmus; Z79.82 Long term (current) use of aspirin; Z79.891 Long term (current) use of opiate analgesic; Z79.02 Long term (current) use of antithrombotics/antiplatelets; Z79.84 Long term (current) use of oral hypoglycemic drugs; R42 Dizziness and giddiness; G47.00 Insomnia, unspecified; Z79.899 Other long term (current) drug therapy
CPT/HCPCS: 36415; 70450; 70496; 70498; 70551; 80048; 80053; 80061; 82962; 83735; 85025; 85027; 85610; 85730; 92523; 92610; 93005; 93312; 93320; 93325; 94762; 97161; 97165; 97802; 99285; Q9967; A4216

== ENCOUNTER 2025-01-14 03:09 | Emergency (ER) | payer OTHER, SELFPAY ==
[2025-01-14] VITALS (8 sets, daily range): BP systolic 95–128; BP diastolic 47–73; PULSE 72–78; RESP 11–16; TEMP 35.7; O2SAT 94–100; BMI 41.0
--- NOTE | 2025-01-14 03:24 | CT_ITS ---
EXAM: BRAIN/HEAD WITHOUT CONTRAST CLINICAL HISTORY: 64 old male with dizziness. COMPARISON: 01/08/2025. TECHNIQUE: Noncontrast images of the head with multiplanar reconstructions. Dose reduction techniques were used including intermediate exposure control (AEC),iterative reconstruction technique, and/or mA and/or KV dose adjustments based on patient's size. FINDINGS: CT HEAD FINDINGS: No acute intracranial hemorrhage, mass, mass effect, midline shift or pathologic extra-axial fluid collection. Nonspecific periventricular white matter changes are noted. No hydrocephalus. Age- appropriate cerebral volume and white matter. There is partial opacification of the right mastoid air cells. The calvarium is grossly intact. CT/Brain/Head without Contrast IMPRESSION: 1. No acute intracranial abnormality. 2. Age-appropriate volume loss and remote small vessel ischemic changes. 3. Right mastoiditis [facility]
--- NOTE | 2025-01-14 03:25 | EDS_ITS ---
HPI History of Present Illness Chief Complaint: Dizziness Narrative Narrative: 65-year-old male past medical history of recent cerebellar stroke on the left presents with dizziness. He has been experiencing dizziness over the last week and during his admissions to the hospital. He also states that he has history of episodic ataxia which was diagnosed 25 years ago. He is not on medications for this, and does not follow-up with a neurologist. He states the other times with his recent cerebellar stroke that the room was spinning and he was nauseated and vomited. He was sleeping, and around 130, approximately 2 hours ago, he woke up and this feels different where he is spinning in the room. Is worse when he stands. He denies any headache, he has experienced nausea and vomiting today. No chest pain, shortness of breath, or other symptoms. He is currently taking Plavix and aspirin. [facility] Medical History TIA (transient ischemic attack) Insulin dependent diabetes mellitus Hyperlipidemia Hypertension Cerebellar infarct CKD (chronic kidney disease) Occlusion of left vertebral artery Wears glasses Wears dentures Insulin dependent diabetes mellitus History of renal disease Arthritis Episodic ataxia Dietary restriction Non-smoker Cardiology follow-up encounter History of stress test Hx of fracture of leg Family history of colon cancer RLS (restless legs syndrome) Insomnia Hyperlipidemia Hx of adenomatous colonic polyps HTN (hypertension) Home Medications ?Medication ?Instructions ?Recorded ?Last Taken ?Type insulin aspar prt-insulin aspart 15 - 20 unit subcut B ID DIABETES 03/24/18 01/03/25 History 100 unit/mL (70-30) subcutaneous soln (Novolog Mix 70-30 U-100 Insuln) atorvastatin 40 mg tablet 40 mg PO QHS CHOLESTEROL 01/02/25 History benazepril 40 mg tablet (Lotensin) 40 mg PO DAILY BP 1 12/30/17 01/03/25 History insulin degludec 100 unit/mL (3 60 unit SQ QHS DIABETE S 10/30/18 01/02/25 History mL) subcutaneous pen (Tresiba FlexTouch U-100 insulin) hydrochlorothiazide 12.5 mg tablet 12.5 mg PO DAILY di uretic 07/10/23 01/03/25 History ropinirole 2 mg tablet 2 mg PO QHS restless legs 01/02/25 History temazepam 15 mg capsule 15 mg PO QHS sleep 07/10/23 01/02/25 History trazodone 100 mg tablet 100 mg PO QHS sleep 07/10/23 01/02/25 History metformin 500 mg tablet 500 mg PO DAILY diabetes 02/2201/03/25 History aspirin 81 mg chewable tablet 81 mg PO BREAKFAST #30 t abs 01/04/25 Unknown Rx clopidogrel 75 mg tablet 75 mg PO DAILY #21 tabs 03/25 Unknown Rx meclizine 25 mg tablet 25 mg PO TID PRN PRN Vertigo #20 01/10/25 Unknown Rx tabs amoxicillin 875 mg-potassium 1 tab PO BID Mastoiditis #20 tabs 01/14/25 Unknown Rx clavulanate 125 mg tablet Allergy/AdvReac Type Severity Reaction Status Date / Time acetaminophen (From Percocet) AdvReac Panic Verified 01/14/25 03:14 attack hydrocodone (From Vicodin) AdvReac Panic Verified 01/14/25 03:14 attack oxycodone (From Percocet) AdvReac Panic Verified 01/14/25 03:14 attack Family History Grandmother Colon cancer Brother Colon cancer Mother Diabetes CVA (cerebral vascular accident) Hypertension Father Diabetes Pancreatic cancer Surgical History History of excision of lesion History of removal of retained hardware Hx of umbilical hernia repair Hx of appendectomy Hx of total knee arthroplasty Hx of total hip arthroplasty Hx of colonoscopy Social History household members: spouse current occupational status: employed Smoking Status: Never smoker alcohol intake: never substance use type: does not use ROS ROS ED ROS Narrative Constitutional: No fever, no chills. HEENT: No sore throat. No neck pain. No loss of vision. No rhinorrhea. Cardiovascular: No chest pain. No palpitations. No pedal edema. Respiratory: No cough, no shortness of breath. Abdominal: No abdominal pain. Positive nausea and vomiting. Genitourinary: No dysuria. No hematuria. Musculoskeletal: No myalgias. No arthralgias. Neurologic: No headaches. Positive dizziness. Worse with standing. No lightheadedness. Skin: No rash. No change in color. Psychiatric: No depression. No anxiety. EXAM Physical Exam Narrative Exam Narrative: Afebrile. Vital signs noted. Nontoxic-appearing. Cardiovascular examination reveals regular rate and rhythm. Lungs are clear to auscultation bilaterally. Abdomen soft nontender with normal active bowel sounds. Neurological examination is nonfocal and nonlateralizing. No noted nystagmus on examination. No cerebellar dysfunction and [id number]. NIH stroke scale is 0. Const Vital Signs: 01/14/25 03:10 01/14/25 04:10 01/14/25 05:18 Temperature 96.2 F L Temperature Source Axillary Pulse Rate 76 73 78 Respiratory Rate 16 12 11 L Blood Pressure 123/73 H 128/63 H Blood Pressure Mean 89 84 Pulse Ox 98 95 94 Oxygen Delivery Method Room Air Room Air Room Air 01/14/25 05:19 01/14/25 06:02 01/14/25 07:13 Temperature Temperature Source Pulse Rate 72 74 Respiratory Rate 14 16 Blood Pressure 95/47 L 98/52 L 95/53 L Blood Pressure Mean 63 67 67 Pulse Ox 96 99 Oxygen Delivery Method Room Air Room Air MDM MDM MDM Narrative Medical decision making narrative: I reviewed the patient's prior records. He does have a left cerebellar stroke. He has had 2 CTs of his brain as well as CTA. I will obtain a CT of the brain again to look for acute hemorrhage, but I do not feel he needs a CTA because he has an NIH stroke scale of 0. Additionally, I do not feel that he requires stroke team activation. He is already on anticoagulants in the form of Plavix and aspirin. He states he took a meclizine that did not help. There is no signs of ataxia on his examination. I discussed with the patient and his the possibility of admitting him for rehab as he has these continued episodic periods of dizziness with nausea and vomiting. I reviewed the most recent discharge summary as well from 4 days ago. It was thought that on his second MRI, that he may be either having inner ear vertigo or new strokes on top of the cerebellar infarcts that he already had. They started him on dual antiplatelet therapy and high-dose statins. While he is going to require follow-up with neurology for vestibular therapy, he was told that he should return to the emergency department if he became symptomatic again. As he is symptomatic, he will be given Valium and I will repeat the CT and check his laboratory work as well as EKG. EKG was obtained and interpreted by myself independently as normal sinus rhythm with first-degree AV block at 75 bpm without ectopy or acute ST changes. No STEMI. Patient did undergo a MARIA C on his last admission as well. I reviewed his laboratory work is grossly unremarkable. This is with exception of the BMP which shows elevated creatinine of 2.4 and BUN of 34, but when compared to prior laboratories he has chronic kidney disease. CBC is grossly normal. He does have neutrophils of 71% but normal hemoglobin. CT of the brain obtained and shows no acute process. He does have a right mastoiditis. He was given Augmentin here in the emergency department. He was bolused additional 500 mL of normal saline after initial bolus of 1 L. I briefly discussed the patient with Dr. Barraza who had recently discharged him. Regarding his therapy for his left cerebellar stroke, his therapy has been maximized with Plavix, aspirin, and high-dose statin. I do feel that his mastoiditis might be causing his vertigo as well. I stressed the importance of follow-up with neurology as well. I wrote him a prescription for Augmentin to take twice a day for the next 10 days and referred him to otolaryngology. Patient signed out to Dr. Williamson to reevaluate the patient and make final disposition. History & Record Review Discussion w/independent historian: Patient Lab Data Attestation: I reviewed the patient's lab results. Labs: Laboratory Results - last 24 hr 01/14/25 03:32 WBC 7.4 RBC 5.14 Hgb 15.6 Hct 46.5 MCV 90.5 MCH 30.4 MCHC 33.5 RDW Std Deviation 43.8 RDW Coeff of Ramone 13.2 Plt Count 177 MPV 10.0 Immature Gran % (Auto) 0.300 Neut % (Auto) 71.0 H Lymph % (Auto) 18.5 L Faulkner % (Auto) 8.7 Eos % (Auto) 1.1 Baso % (Auto) 0.4 Absolute Neuts (auto) 5.2 Absolute Lymphs (auto) 1.36 Nucleated RBC % 0 Sodium 138 Potassium 4.0 Chloride 104 Carbon Dioxide 27.0 Anion Gap 7 BUN 34 H Creatinine 2.40 H Estim Creat Clear Calc 44.50 Est GFR (MDRD) Af Amer 35 L Est GFR (MDRD) Non-Af 29 L BUN/Creatinine Ratio 14.2 Glucose 158 H Calcium 9.7 Total Bilirubin 0.60 AST 34 ALT 31 Alkaline Phosphatase 100 Total Protein 7.4 Albumin 3.9 Globulin 3.5 Albumin/Globulin Ratio 1.1 Radiography Diagnostic Testing: Clinical Impression(s) from Imaging Studies Brain CT 01/14/25 03:24 IMPRESSION: 1. No acute intracranial abnormality. 2. Age-appropriate volume loss and remote small vessel ischemic changes. 3. Right mastoiditis Reading [facility] Management Discussion w/another healthcare provider: Hospitalist Discharge Plan Triage Chief Complaint: Dizziness ED Provider: Doroteo Link Dx/Rx/DC Orders Clinical Impression: Vertigo, Mastoiditis of right side, History of cerebellar stroke Instructions: Anatomy of the Inner Ear, ED Vertigo, Unspecified Prescriptions: New amoxicillin-pot clavulanate 875-125 mg tablet 1 tab PO BID Qty: 20 0RF No Action ropinirole 2 mg tablet 2 mg PO QHS Rx Instructions: administer 1-3 hours before bedtime temazepam 15 mg capsule 15 mg PO QHS trazodone 100 mg tablet 100 mg PO QHS hydrochlorothiazide 12.5 mg tablet 12.5 mg PO DAILY insulin asp prt-insulin aspart [Novolog Mix 70-30 U-100 Insuln] 100 UNIT/ML solution 15 - 20 unit subcut BID Patient Comments: SLIDING SCALE atorvastatin 40 MG tablet 40 mg PO QHS benazepril [Lotensin] 40 MG tablet 40 mg PO DAILY insulin degludec [Tresiba FlexTouch U-100] 100 UNIT/ML insulin pen 60 unit SQ QHS metformin 500 mg tablet 500 mg PO DAILY clopidogrel 75 mg Tablet 75 mg PO DAILY Qty: 21 0RF aspirin 81 mg Tablet,Chewable 81 mg PO BREAKFAST Qty: 30 2RF meclizine 25 mg Tablet 25 mg PO TID PRN PRN (Reason: Vertigo) Qty: 20 0RF Primary Care Provider: Willam Rosales Referrals: Bill Mccallum MD [Med Staff - Active Staff] - 3-5 Days Willam Rosales MD [Primary Care Provider] - 3-5 Days if not improving Activity Restrictions/Additional Instructions: Follow-up with neurology as recommended by the hospitalist. Continue your Plavix, aspirin, and high-dose statin. Take all the antibiotic as directed. Follow-up with otolaryngology regarding your right mastoiditis. Print Language: Frisian
--- NOTE | 2025-01-14 03:29 | EKG12_ITS ---
Test Reason : DIZZYNESS Blood Pressure : */* mmHG Vent. Rate : 75 BPM Atrial Rate : 75 BPM P-R Int : 222 ms QRS Dur : 92 ms QT Int : 406 ms P-R-T Axes : 17 11 12 degrees QTcB Int : 453 ms Sinus rhythm with 1st degree A-V block Otherwise normal ECG Confirmed by MIKE CHAVEZ, ASHUTOSH ([id number]), loan expeditor PARUL MANN ([id number]) on 01/17/2025 8:13:57 AM Referred By: PATRIC Confirmed By: ASHUTOSH MCKEON MD
[2025-01-14 03:42] LABS: Absolute Lymphocyte Count 1.36 X10^3/uL (0.83-4.51); Absolute Neutrophil Count 5.2 X10^3/uL (2.0-7.7); Basophil# 0.03 X10^3/uL; Basophil% 0.4 % (0-1); Eosinophil# 0.08 X10^3/uL; Eosinophils% 1.1 % (0-5); Hematocrit 46.5 % (40-54); Hemoglobin 15.6 g/dL (13.0-16.5); Lymphocyte # 1.36 X10^3/ul (0.83-4.51); Lymphocyte % 18.5 % (19-41); Mean Corp Hgb Conc 33.5 g/dL (32-36); Mean Corpuscular Hgb 30.4 pg (27.0-32.0); Mean Corpuscular Volume 90.5 fL (80-94); Monocyte# 0.64 X10^3/uL; Monocyte% 8.7 % (0-10); NRBC Flagged by Analyzer 0 % (0-5); Neutrophil # 5.24 X10^3/uL (2.7-7.7); Platelet Count 177 K/mm3 (150-450); RBC Distribution Width CV 13.2 % (11.6-14.6); RBC Distribution Width SD 43.8 fl (35.1-43.9); Red Blood Count 5.14 M/mm3 (4.6-6.2); White Blood Count 7.4 K/mm3 (4.4-11.0)
[2025-01-14] MEDS: diazePAM 5 MG Tablet PO (03:53)
[2025-01-14 04:13] LABS: ALB/GLOB Ratio 1.1 RATIO (0.9-2.4); AST(SGOT) 34 U/L (15-37); Alanine Aminotransfer ALT/SGPT 31 U/L (16-61); Albumin, Serum 3.9 g/dL (3.2-5.0); Alkaline Phosphatase 100 U/L (45-117); Anion Gap 7 (5-15); BUN 34 mg/dL (7-18); BUN/Creat Ratio 14.2 RATIO (10-20); Calcium,Total 9.7 mg/dL (8.5-10.1); Chloride 104 mmol/L (98-107); EST Glomerular Filtration Rate 29 mL/min (>60); Est Glom Filt Rate - Afr Amer 35 mL/min (>60); Globulin 3.5 g/dL (2.2-4.2); Glucose 158 mg/dL (74-106); Protein, Total 7.4 g/dL (6.4-8.2); Sodium Level 138 mmol/L (136-145)
[2025-01-14] MEDS: 0.9% Normal Saline (1000mL) 1,000 ML 999 ML IV (04:31)
[2025-01-14] MEDS: Amox/Clavulanate 875 MG Tablet PO (06:03)
[2025-01-14] MEDS: Scopolamine 1mg/72hr Patch 1 PATCH TD (06:03)
[2025-01-14] MEDS: 0.9% Normal Saline (500mL Bag) 500 ML 999 ML IV (07:12)
== END 2025-01-14 09:09 | disposition home or self-care (01) ==
PROVIDERS: Emergency Provider Emergency Medicine; PCP Family Medicine; Visit Provider Emergency Medicine
DX: R42 Dizziness and giddiness (principal); Z79.4 Long term (current) use of insulin; E11.22 Type 2 diabetes mellitus with diabetic chronic kidney disease; I12.9 Hypertensive chronic kidney disease with stage 1 through stage 4 chronic kidney disease, or unspecified chronic kidney disease; I44.30 Unspecified atrioventricular block; H70.91 Unspecified mastoiditis, right ear; N18.9 Chronic kidney disease, unspecified; R11.2 Nausea with vomiting, unspecified; E78.5 Hyperlipidemia, unspecified; Z79.02 Long term (current) use of antithrombotics/antiplatelets; Z86.73 Personal history of transient ischemic attack (TIA), and cerebral infarction without residual deficits; Z80.0 Family history of malignant neoplasm of digestive organs
CPT/HCPCS: 70450; 80053; 85025; 93005; 96360; 96361; 99282; A4216

== ENCOUNTER → 2025-08-26 | Outpatient (CLI) | payer MEDICAID, SELFPAY ==
[2025-08-26 12:13] LABS: Hematocrit 45.1 % (40-54); Hemoglobin 15.2 g/dL (13.0-16.5); Immature Granulocytes Count 0.110 X10^3/uL (0.0-0.0); Mean Corp Hgb Conc 33.7 g/dL (32-36); Mean Corpuscular Volume 91.1 fL (80-94); Mean Platelet Vol. 10.1 fl (6.2-12.0); NRBC Flagged by Analyzer 0 % (0-5); Platelet Count 157 K/mm3 (150-450); RBC Distribution Width CV 13.0 % (11.6-14.6); RBC Distribution Width SD 43.4 fl (35.1-43.9); Red Blood Count 4.95 M/mm3 (4.6-6.2); White Blood Count 5.7 K/mm3 (4.4-11.0)
[2025-08-26 13:19] LABS: AST(SGOT) 19 U/L (<=37); Alanine Aminotransfer ALT/SGPT 16 U/L (<=46); Albumin, Serum 3.9 g/dL (3.4-4.8); Alkaline Phosphatase 77 U/L (40-129); Anion Gap 12 (5-15); BUN 23 mg/dL (4-19); BUN/Creat Ratio 12.9 RATIO (10-20); Calcium,Total 8.1 mg/dL (7.6-11.0); Carbon Dioxide 22.1 mmol/L (21.0-32.0); Chloride 106 mmol/L (98-108); Cholesterol 146 mg/dL (<=200); Globulin 1.8 g/dL (2.2-4.2); Glucose 128 mg/dL (70-99); Low Density Lipoprotein Calc. 89 mg/dL; PSA,Total - Annual Screen 0.86 ng/mL (0.02-4.00); Potassium 4.3 mmol/L (3.3-5.1); Triglycerides 182 mg/dL; Very Low Density Lipoprotein 36 mg/dL (5-40); cholesterol:hdl ratio screen 7.09
== END | disposition home or self-care (01) ==
LOC: LAB 11:12
PROVIDERS: PCP Nurse Practitioner Family; Referring Provider Nurse Practitioner Family; Visit Provider Nurse Practitioner Family
DX: I10 Essential (primary) hypertension (principal); E78.5 Hyperlipidemia, unspecified; Z12.5 Encounter for screening for malignant neoplasm of prostate
CPT/HCPCS: 36415; 80053; 80061; 84153; 85025; G0103